=== PATIENT | female | born 1945 | race Caucasian/White ===

== ENCOUNTER 2016-11-27 14:27 | Day surgery (SDC) | payer MEDICARE ==
[~2016-11-27] VITALS: Ht 160 cm; Wt 82.1 kg
[~2016-11-27 14:27] MED LIST: AMLO10TA2 PO; ASPI-917 PO; BUSP10TA PO; CITA-49 PO; CLOP75TA33 PO; ISOS10TA2 PO; NITR0.4T39 PO; RANI150T12 PO
[2016-11-27] MEDS ORDERED: ASPIRIN 81 MG CHEWABLE TABLET PO ONE (14:30)
--- OUTSIDE RECORDS SUMMARY | 2016-11-27 14:31 | XMS REPORT | Continuity of Care Document ---
Author Author [facility] Organization [facility] Address Unknown Phone Unavailable Support Name Relationship Address Phone JENA APPIAH MD Caregiver [address] [place] [address] Unavailable MICAH TALBOT DO Caregiver [address] [place] [address] Unavailable STACIE ELLIS DO Caregiver [address] [place] [address] Unavailable VIOLET WILSON Next Of Kin [address] [id number] C Insurance Providers Guarantor Bianka Eason Address [address] [place] [address] CP Email DENIED/NO TO PT PORT Payer Medicare Policy Number [id number] Subscriber's Name Bianka Eason Relationship 16 Self Advance Directives Directive Response Recorded Date/Time Ordered Resuscitation Status Full Code, unverified 07/05/16 8:27am Resuscitation Documents on File N Full Code 07/04/16 6:00pm DPOA for Healthcare Only Y Sheila Shelbina 07/04/16 6:00pm Living Will No 07/04/16 6:00pm Advance Directive Consult Information Given 07/05/16 10:27am Problems Active Problems Medical Problem Onset Date Status Angina pectoris, variant Unknown Acute Anxiety disorder Unknown Chronic Atrial fibrillation, chronic Unknown Chronic Atypical chest pain Unknown Resolved Back pain Unknown Acute Bipolar disorder Unknown Chronic CAD (coronary artery disease) Unknown Chronic Chest pain Unknown Acute Coronary artery disease Unknown Acute Dyslipidemia Unknown Chronic Hypertension Unknown Chronic Hypokalemia Unknown Infected dental caries Unknown Acute Infected dental caries Unknown Acute Left leg pain Unknown Acute Leukocytosis Unknown Acute Paroxysmal atrial fibrillation Unknown Chronic Postprocedural hemorrhage of a circulatory system organ or structure following a cardiac catheterization Unknown Shortness of breath Unknown Acute Vertigo or labyrinthine disorder Unknown Acute Vertigo or labyrinthine disorder Unknown Acute Surgical Problem Onset Date Status S/P CABG (coronary artery bypass graft) Unknown Chronic Status post coronary artery stent placement Unknown Acute Past Problems Medical Problem Onset Date Typical angina Unknown Medications Current Home Medications Medication Dose Units Route Directions Days Qty Instructions Start Date Amlodipine Besylate 10 Mg Tablet 5 Mg Oral Daily 07/05/16 Aspirin (Aspirin Ec) 325 Mg Tablet.dr 325 Mg Oral Daily 07/04/16 Buspirone Hcl 10 Mg Tablet 10 Mg Oral Twice A Day 06/29/13 Citalopram Hydrobromide (Celexa) 20 Mg Tablet 20 Mg Oral Bedtime 07/17/12 Clopidogrel Bisulfate (Clopidogrel) 75 Mg Tablet 75 Mg Oral Daily 07/04/16 Isosorbide Dinitrate 10 Mg Tablet 30 Mg Oral Daily 30 Days 90 Tablet 07/05/16 Nitroglycerin 0.4 Mg Tab.subl 0.4 Mg Oral Every 5 Minutes X 3 as needed for Chest Pain 07/04/16 Ranitidine Hcl (Zantac) 150 Mg Tablet 150 Mg Oral Twice A Day Past Home Medications Medication Directions Ordered Status Amlodipine Besylate 5 Mg Tablet, 5 Mg Oral Daily 07/04/16 Discontinued Aspirin (Aspir 81) 81 Mg Tablet.dr, 81 Mg Oral Daily 07/15/13 Discontinued Aspirin 81 Mg Tablet, 81 Mg Oral Daily 03/14/09 Discontinued Buspirone Hcl (Buspar) 15 Mg Tablet, 15 Mg Oral Twice A Day 07/08/12 Discontinued Ciprofloxacin Hcl (Cipro) 500 Mg Tablet, Twice A Day 10/19/08 Discontinued Diltiazem Hcl (Diltiazem Er) 240 Mg Cap.sr.24h, Daily 10/19/08 Discontinued Flecainide Acetate 50 Mg Tablet, 50 Mg Oral Twice A Day 07/15/13 Discontinued Isosorbide Dinitrate 30 Mg Tablet, 2 Tab Oral Daily 07/05/16 Discontinued Isosorbide Mononitrate (Isosorbide Mononitrate Er) 60 Mg Tab.er.24h, 60 Mg Oral Daily 07/04/16 Discontinued Lisinopril 5 Mg Tablet, 5 Mg Oral Daily 08/28/14 Discontinued Lisinopril 2.5 Mg Tablet, 2.5 Mg Oral Daily 07/15/13 Discontinued Lorazepam (Ativan) 1 Mg Tablet, 1 Mg Oral 02/24/11 Discontinued Paxil , 12/27/09 Discontinued Potassium , 20 Meq Daily 12/27/09 Discontinued Sotalol , Daily 12/27/09 Discontinued Sotalol , 1 Tab Oral Twice A Day 03/14/09 Discontinued Sotalol Hcl (Sotalol) 80 Mg Tablet, 80 Mg Oral Daily 07/08/12 Discontinued Warfarin Sodium 5 Mg Tablet, 5 Mg Oral 169908/28/14 Discontinued Warfarin Sodium 2.5 Mg Tablet, 2.5 Mg Oral Friday08/28/14 Discontinued Warfarin Sodium (Coumadin) 2.5 Mg Tablet, 02/13/14 Discontinued Warfarin Sodium (Coumadin) 5 Mg Tablet, 5 Mg Oral Every Other Day 03/14/09 Discontinued Warfarin Sodium (Coumadin) 7.5 Mg Tablet, 7.5 Mg Oral Every Other Day Discontinued Social History Social History Problem Response Recorded Date/Time Onset Date Status Reason for Hospitalization chest pain 07/05/2016 10:46am Not Applicable Not Applicable Chewing Tobacco Status No 12/31/2013 1:22am Not Applicable Not Applicable Hx Substance Use No 07/04/2016 3:05pm Not Applicable Not Applicable Hx Alcohol Use No 07/04/2016 3:05pm Not Applicable Not Applicable Has the pt used tobacco in the last 12 months No 07/04/2016 6:09pm Not Applicable Not Applicable Tobacco Usage none 12/31/2013 2:34am Not Applicable Not Applicable Query Response Start Date Stop Date Smoking Status Unknown if ever smoked Hospital Discharge Instructions Instructions: Care Instructions: I was in the hospital because (patient own words): "CP Discharge Diet: Resume heart healthy diet Discharge Activity: Limit activity for 2 days. No lifting more than 10 pounds, no pushing or pulling for 1 week. Follow Up Appointments: Follow up with Dr. Appiah on: 07/30/16 Expect a phone call from [facility]hab to schedule an appointment for you. If you have any questions, please contact Card[facility] Rehab at: [phone]. Pending Lab / Results: No Pending Lab Patient Instructions: Do not drive, operate machinery or drink alcohol for 2 days. New prescriptions: Expected Signs/Symptoms: bruising and tenderness at site. Notify Physician If: Site is bleeding, abnormal drainage, increased pain or fever of 101.5 or more. During Business Hours:: Please call the physician's office at [phone] After Business Hours:: Please call [phone] and have the assistant plant control operator page the physician. Pain Management/Treatment: OTC pain medications as needed Pain Scale Utilized to Educate Patient: 0-10 Pain Scale Wound/Incision Care: Keep site clean and dry. No tub baths or swimming for 1 week. You may shower. Condition at time of discharge: Good Plan of Care Discharge Date 07/05/16 11:15am Instructions/Education Provided [facility] [place] Heart Cath Prescriptions See Medication Section Functional Status Query Response Date Recorded Mobility Status Ambulatory July 04, 2016 6:04pm Assistive Devices None July 04, 2016 6:04pm Activity Limitations None July 04, 2016 6:04pm Feeding Ability Independent July 04, 2016 6:04pm Toileting Ability Independent July 04, 2016 6:04pm Grooming Ability Independent July 04, 2016 6:04pm Dressing Ability Independent July 04, 2016 6:04pm Driving Ability Independent July 04, 2016 6:04pm Housework Ability Independent July 04, 2016 6:04pm Meal Preparation Ability Independent July 04, 2016 6:04pm Stair Climbing Ability Independent July 04, 2016 6:04pm Ability to complete ADL's impeded by No change July 04, 2016 6:04pm Cognitive/Perceptual Impairments None July 04, 2016 6:04pm Allergies, Adverse Reactions, Alerts Allergen Type Severity Reaction Status Last Updated Iodine and Iodide Containing Produc Allergy Unknown IVP DYE Active Sulfa (Sulfonamide Antibiotics) Adverse Reaction Unknown NAUSEA Active Immunizations Query Response on File Recorded Date/Time Hx Influenza Vaccination Y 04/201607/04/16 6:09pm Hx Pneumococcal Vaccination Y fall 201307/04/16 6:09pm Hx Tetanus, Diptheria, Pertussis No 03/29/15 12:14am Hx Influenza Vaccination Y 04/201607/04/16 6:09pm Hx Tetanus Diptheria Y 04/29/09 03/29/15 12:14am Hx Tetanus, Diptheria, Pertussis No 03/29/15 12:14am Hx Tetanus Toxoid Vaccination No 03/21/09 9:11pm Influenza Vaccine Hx 04/201607/04/16 6:08pm Vital Signs Acute Vital Signs Vital Response Date/Time Temperature (Fahrenheit) 98.1 deg F (96.8 - 99.1) 07/05/2016 8:01am Temperature (Calculated Celsius) 36.89802 degrees C (36.0 - 37.3) 07/05/2016 8:01am Temperature Source Oral 07/05/2016 8:01am Pulse Rate (adult) 84 bpm (60 - 100) 07/05/2016 10:04am Respiratory Rate 37 breaths/min (10 - 20) 07/05/2016 10:04am O2 Sat by Pulse Oximetry 98 % (90 - 100) 07/05/2016 10:04am Oxygen Delivery Method Room Air 07/05/2016 10:04am Blood Pressure 138/64 mm Hg 07/05/2016 10:04am Blood Pressure Source Automatic Cuff 07/05/2016 10:04am Height (Feet) 5 feet 07/04/2016 5:59pm Height (Inches) 3.00 inches 07/04/2016 5:59pm Weight (Kilograms) 77.700 kg 07/05/2016 8:00am Body Mass Index (BMI) 30.3 07/04/2016 5:59pm Results Laboratory Results Test Name Result Units Flags Reference Collection Date/Time Result Date/ Time Comments White Blood Count 8.5 T/MM3 4.5-11.0 07/05/2016 5:08am 07/05/2016 5: 42am Red Blood Count 4.75 M/MM3 4.00-5.20 07/05/2016 5:08am 07/05/2016 5: 42am Hemoglobin 14.2 GM/DL -07/05/2016 5:08am 07/05/2016 5:42am Hematocrit 42.8 % 36-46 07/05/2016 5:08am 07/05/2016 5:42am Mean Corpuscular Volume 90.1 UM3 80-100 07/05/2016 5:08am 07/05/2016 5: 42am Mean Corpuscular Hemoglobin 29.9 UUG 26-34 07/05/2016 5:08am 2015 5:42am Mean Corpuscular Hemoglobin Concent 33.2 GM/DL 31-37 07/05/2016 5:08am 07/05/2016 5:42am RDW Standard Deviation 39.8 FL 36.9-50.2 07/05/2016 5:08am 07/05/2016 5 :42am Platelet Count 238 T/MM3 130-400 07/05/2016 5:08am 07/05/2016 5:42am Mean Platelet Volume 10.3 UM3 9.4-12.4 07/05/2016 5:0807/05/2016 5: 42am Neutrophils (%) (Auto) 84.8 % H 33-66 07/05/2016 5:0807/05/2016 5: 42am Lymphocytes (%) (Auto) 13.2 % L 23-45 07/05/2016 5:0807/05/2016 5: 42am Monocytes (%) (Auto) 1.6 % 0-9.0 07/05/2016 5:0807/05/2016 5:42am Eosinophils (%) (Auto) 0.1 % 0-4 07/05/2016 5:0807/05/2016 5:42am Basophils (%) (Auto) 0.1 % 0-2 07/05/2016 5:0807/05/2016 5:42am Immature Granulocyte % (Auto) 0.2 % 0.0-0.5 07/05/2016 5:082015 5:42am Absolute Neutrophils (auto) 7.2 T/MM3 1.8-7.7 07/05/2016 5:082015 5:42am Absolute Lymphocytes (auto) 1.1 T/MM3 1-4.8 07/05/2016 5:082015 5:42am Absolute Monocytes (auto) 0.1 T/MM3 0-0.8 07/05/2016 5:0807/05/2016 5:42am Absolute Eosinophils (auto) 0.0 T/MM3 0-0.5 07/05/2016 5:082015 5:42am Absolute Basophils (auto) 0.0 T/MM3 0-0.2 07/05/2016 5:0807/05/2016 5:42am Absolute Immature Granulocyte (auto 0.02 T/MM3 0.00-0.03 07/05/2016 5: 0807/05/2016 5:42am Prothromb Time International Ratio 1.10 H 0.76-1.04 07/04/2016 3:11pm 07/04/2016 3:35pm THERAPUTIC RANGE=2.00-3.00 FOR ANTI-THROMBOSIS THERAPUTIC RANGE=2.50-3.50 FOR IMPLANTED VALVE D-Dimer 159 NG/ML 0-230 07/04/2016 3:11pm 07/04/2016 3:42pm <230 NG/ ML D-DU=PRESUMPTIVE NEGATIVE FOR PE OR DVT >230 NG/ML D-DU=ADDITIONAL EVAL FOR PE OR DVT RECOMMENDED Icterus Index < 2 0-7 07/05/2016 5:08am 07/05/2016 5:50am Chemistry Specimen Hemolysis < 15 0-25 07/05/2016 5:08am 07/05/2016 5 :50am 0-25: Specimen Exhibited No Hemolysis. Turbidity < 20 0-20 07/05/2016 5:08am 07/05/2016 5:50am Sodium Level 140 MEQ/L 134-144 07/05/2016 5:08am 07/05/2016 5:50am Potassium Level 3.8 MEQ/L 3.6-5 07/05/2016 5:08am 07/05/2016 5:50am Chloride Level 104 MEQ/L 98-107 07/05/2016 5:08am 07/05/2016 5:50am Carbon Dioxide Level 25 MEQ/L 22-30 07/05/2016 5:0807/05/2016 5: 50am Anion Gap 11 MEQ/L 5-15 07/05/2016 5:08am 07/05/2016 5:50am Blood Urea Nitrogen 17.0 MG/DL 7-17 07/05/2016 5:0807/05/2016 5: 50am Creatinine 0.9 MG/DL D 0.7-1.2 07/05/2016 5:08am 07/05/2016 5:57am BUN/Creatinine Ratio 19 RATIO 6-26 07/05/2016 5:0807/05/2016 5:50am Glomerular Filtration Rate Calc 61 07/05/2016 5:0807/05/2016 5: 50am Glucose Level 160 MG/DL H 65-110 07/05/2016 5:08am 07/05/2016 5:50am Calculated Osmolality 274 MOSM/KG 261-280 07/05/2016 5:0807/05/2016 5:50am Calcium Level 9.5 MG/DL 8.4-10.2 07/05/2016 5:08am 07/05/2016 5:50am Troponin I < 0.012 ng/ml 0-0.12 07/04/2016 3:11pm 07/04/2016 3:51pm Troponin values with a difference of 55% increase from orginal troponin value represent a true biological DELTA value. (%increase Calc=Orginal Troponin value, divided by subsequent Troponin value, multiplied by 100) AV-Cnp-L-Type Natriuretic Peptide 253 PG/ML H 0-175 07/04/2016 3:11pm 3:51pm Rule in cut points: <50 years old=450; 50-75 years old=900; >75 years old=1800; When utilizing ProBNP rule-in cut points, adjustment for impaired renal function is typically not required. Name: BIANKA EASON Unit #: [id number] : 1945 Sex: F Admit Date: Loc / Svc: CCU Discharge Date: DIAGNOSTIC IMAGING REPORT Report #: [id number] [facility] [place] Indication: ITS.REASON: r/o pseudoaneurysm at HC site PROCEDURE: US ARTERIAL EXTREMITY LOWER RT: Technique: Grayscale color and duplex Doppler imaging was performed of the arterial tree of both legs. Findings: RIGHT LEG (cm/sec) Common Femoral 134 Superficial Femoral Proximal 113 The profunda is patent. The common femoral vein is patent without arterial waveform or increased pulsatility. No definite right groin hematoma detected. IMPRESSION:No evidence for right groin pseudoaneurysm or AV fistula post cardiac catheterization access. . Procedures Procedure Status Date Provider(s) COMP SCREEN MAMMOGRAM ADD-ON Completed 05/22/16 BREAST TOMOSYNTHESIS BI Completed 05/22/16 269502"SCREENING MAMMOGRAPHY, PRODUCING DIRECT DIGITAL IMAGE Completed Encounters Encounter Location Arrival/Admit Date Discharge/Depart Date Attending Provider Departed [facility] Day [facility] 07/04/16 4:25pm 07/05/16 11 :15am JENA APPIAH MD Registered [facility] 06/28/16 2:00pm GREYSON OROURKE MD Registered [facility] 05/22/16 9:54am JAMIR PACK
--- OUTSIDE RECORDS SUMMARY | 2016-11-27 14:31 | XMS REPORT | Continuity of Care Document ---
Author Author Jorge [facility] LIVE Organization [facility] LIVE Address Unknown Phone Unavailable Support Name Relationship Address Phone STACIE ELLIS DO Caregiver [facility] [address] [facility] [address] [place] [phone] SHI BHAKTA MD Caregiver [address] [place] [address] [place] [phone] RALPH INMAN Next Of Kin [address] [place] [address] Insurance Providers Payer Name Policy Number Subscriber Name Relationship Medicare [id number] Bianka Eason 16 Self Problems Medical Problems Problem Onset Date Status Chest pain Unknown Active atrial fibrillation Unknown Active 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 Infected dental caries Unknown Active Infected dental caries Unknown Active Medications Medication Dose Route Sig Days/Qty Instructions Order Date Discontinued Date Status Diltiazem Hcl DAILY 10/19/08 03/14/09 Discontinued Ciprofloxacin Hcl TWICE A DAY 10/19/08 03/14/09 Discontinued Warfarin Sodium 5 Mg PO EVERY OTHER DAY 03/14/09 12/21/09 Discontinued Warfarin Sodium 7.5 Mg PO EVERY OTHER DAY 03/14/09 12/21/09 Discontinued Aspirin 81 Mg PO DAILY 03/14/09 12/21/09 Discontinued [Sotalol] 1 Tab PO TWICE A DAY 03/14/09 12/21/09 Discontinued [Sotalol] DAILY 12/27/09 02/24/11 Discontinued [Paxil] 12/27/09 02/24/11 Discontinued [Potassium] 20 Meq DAILY 12/27/09 02/24/11 Discontinued Lorazepam 1 Mg PO 02/24/11 08/04/12 Discontinued Buspirone Hcl 15 Mg PO TWICE A DAY 07/08/12 07/17/12 Discontinued Sotalol Hcl 80 Mg PO DAILY 07/08/12 07/15/13 Discontinued Citalopram Hydrobromide DAILY 07/17/12 Active Buspirone Hcl 10 Mg PO TWICE DAILY ON EMPTY STOMACH 06/29/13 Active Aspirin 81 Mg PO DAILY 07/15/13 Active Atorvastatin Calcium 40 Mg PO BEDTIME 07/15/13 Active Lisinopril 2.5 Mg PO DAILY 07/15/13 Active Flecainide Acetate 50 Mg PO THREE TIMES A DAY 07/15/13 Active [Coumadin] 5 Mg PO 12/31/13 Active Meclizine Hcl 25 Mg PO THREE TIMES A DAY For VERTIGO 20 Qty 12/31/13 Active Amoxicillin 875 Mg PO TWICE A DAY 20 Qty 02/13/14 Active Warfarin Sodium 02/13/14 Active Social History Social History Problem Response Recorded Date/Time Smoking Status Unknown if ever smoked 12/31/2013 1:22am Chewing Tobacco Status No 12/31/2013 1:22am Hx Substance Use No 02/13/2014 8:03pm Hx Alcohol Use No 02/13/2014 8:03pm Has the pt used tobacco in the last 12 months No 06/29/2013 9:21am Query Response Start Date Stop Date Smoking Status Never smoker Hospital Discharge Instructions No hospital discharge instructions. Plan of Care No plan of care. Functional Status Query Response Date Recorded Physical Hygiene Self February 13, 2014 8:03pm Disabilities None February 13, 2014 8:03pm Devices Used None February 13, 2014 8:03pm Dressing Self February 13, 2014 8:03pm Ambulation Self February 13, 2014 8:03pm Diet Self February 13, 2014 8:03pm Mental Status Alert Oriented February 13, 2014 8:03pm Disabilities None February 13, 2014 8:03pm Devices Used None February 13, 2014 8:03pm Physical Hygiene Self February 13, 2014 8:03pm Dressing Self February 13, 2014 8:03pm Ambulation Self February 13, 2014 8:03pm Diet Self February 13, 2014 8:03pm Allergies, Adverse Reactions, Alerts Allergen Type Severity Reaction Status Last Updated Iodine; Iodine Containing Allergy Unknown IVP DYE Active 02/13/14 Sulfa (Sulfonamide Antibiotics) Adverse Reaction Unknown NAUSEA Active Immunizations Name Given Type Hx Influenza Vaccination N pt won't take vaccine Historical Hx Pneumococcal Vaccination N pt won't take vaccine Historical Hx Tetanus, Diptheria, Pertussis No Historical Hx Influenza Vaccination N pt won't take vaccine Historical Hx Tetanus Diptheria Y 04/29/09 Historical Hx Tetanus, Diptheria, Pertussis No Historical Hx Tetanus Toxoid Vaccination No Historical Vital Signs Acute Vital Signs Vital Response Date/Time Temperature (Fahrenheit) 97.6 deg F (96.8 - 99.1) Temperature (Calculated Celsius) 36.36403 degrees C (36.0 - 37.3) Pulse Rate (adult) 58 bpm (60 - 100) Respiratory Rate 20 breaths/min (10 - 20) O2 Sat by Pulse Oximetry 96 % (90 - 100) Blood Pressure 164/70 mm Hg Height 5 ft 3 in Weight 180 lb Body Mass Index 31.0 kg/m^2 Results Test Source Date Result Interp. Ref. Range Comments Activated Partial Thromboplast Time December 31, 2013 1:40am 42.1 SEC H 24- 36 Alanine Aminotransferase (ALT/SGPT) December 31, 2013 1:40am 25 U/L N 9-52 Albumin December 31, 2013 1:40am 3.7 G/DL N 3.5-5.0 Albumin/Globulin Ratio December 31, 2013 1:40am 1.3 RATIO N 1.1-2.2 Alkaline Phosphatase December 31, 2013 1:40am 142 U/L H 38-126 Anion Gap December 31, 2013 1:40am 9 MEQ/L N 5-15 Aspartate Amino Transf (AST/SGOT) December 31, 2013 1:40am 29 U/L N 14-36 B-Type Natriuretic Peptide February 24, 2011 9:00pm < 15 PG/ML L 15-100 BUN/Creatinine Ratio December 31, 2013 1:40am 20 RATIO N 6-26 Band Neutrophils # March 14, 2009 10:20am 0.0 T/MM3 - Band Neutrophils % March 14, 2009 10:20am 0.0 % DN 0-6 Basophils # (Auto) December 31, 2013 1:40am 0.1 T/MM3 N 0-0.2 Basophils # (Manual) March 14, 2009 10:20am 0.0 T/MM3 N 0-0.2 Basophils % (Manual) March 14, 2009 10:20am 0.0 % N 0-2 Basophils (%) (Auto) December 31, 2013 1:40am 0.8 % N 0-2 Blood Urea Nitrogen December 31, 2013 1:40am 16.0 MG/DL N 7-17 Calcium Level December 31, 2013 1:40am 9.5 MG/DL N 8.4-10.2 Calculated Osmolality December 31, 2013 1:40am 270 MOSM/KG N 261-280 Carbon Dioxide Level December 31, 2013 1:40am 26 MEQ/L N 22-30 Chloride Level December 31, 2013 1:40am 105 MEQ/L N 98-107 Cholesterol Level June 29, 2013 9:20am 197 MG/DL N 132-199 COMMENT FASTING PANEL-ADD TO BLOOD IN LAB Cholesterol/HDL Ratio June 29, 2013 9:20am 3.6 RATIO N 0-4.0 COMMENT FASTING PANEL-ADD TO BLOOD IN LAB Conjugated Bilirubin July 06, 2012 9:15am 0.00 MG/DL N 0.00-0.30 Creatine Kinase MB June 29, 2013 9:20am 0.9 NG/ML N 0-3.4 Creatinine December 31, 2013 1:40am 0.8 MG/DL N 0.7-1.2 D-Dimer February 24, 2011 9:00pm < 150 NG/ML 0-230 <224 NG/ML= PRESUMPTIVE NEGATIVE FOR PE OR DVT>224 NG/ML=ADDITIONAL EVALUATION FOR PE OR DVT RECOMMENDED Differential Total Cells Counted October 19, 2008 3:00pm 100 % - Digoxin Level October 21, 2008 4:47am 0.7 NG/ML L 0.8-2.0 Eosinophils # (Auto) December 31, 2013 1:40am 0.2 T/MM3 N 0-0.5 Eosinophils # (Manual) March 14, 2009 10:20am 0.0 T/MM3 N 0-0.5 Eosinophils % (Manual) March 14, 2009 10:20am 0.0 % N 0-4 Eosinophils (%) (Auto) December 31, 2013 1:40am 3.1 % N 0-4 Erythrocyte Sedimentation Rate July 06, 2012 9:15am 68 MM/HR H 0-20 Globulin December 31, 2013 1:40am 2.8 G/DL N 2.4-3.6 Glucose Level December 31, 2013 1:40am 101 MG/DL N 65-110 Hematocrit December 31, 2013 1:40am 40.2 % N 36-46 Hemoglobin December 31, 2013 1:40am 12.9 GM/DL N 12-16 LDL Cholesterol, Calculated June 29, 2013 9:20am 121.0 N 66-159 COMMENT FASTING PANEL-ADD TO BLOOD IN LAB Lipase March 14, 2009 10:20am 93 U/L N 23-300 Lymphocytes # (Auto) December 31, 2013 1:40am 3.2 T/MM3 N 1-4.8 Lymphocytes # (Manual) March 14, 2009 10:20am 0.5 T/MM3 L 1-4.8 Lymphocytes % (Manual) March 14, 2009 10:20am 5.0 % L 23-45 Lymphocytes (%) (Auto) December 31, 2013 1:40am 41.3 % N 23-45 Magnesium Level July 06, 2012 9:15am 2.2 MG/DL N 1.6-2.3 COMMENT charito Mean Corpuscular Hemoglobin December 31, 2013 1:40am 28.2 UUG N 26-34 Mean Corpuscular Hemoglobin Concent December 31, 2013 1:40am 32.1 GM/DL N 31 -37 Mean Corpuscular Volume December 31, 2013 1:40am 87.8 UM3 N 80-100 Mean Platelet Volume December 31, 2013 1:40am 10.4 UM3 N 9.4-12.4 Monocytes # (Auto) December 31, 2013 1:40am 1.0 T/MM3 H 0-0.8 Monocytes # (Manual) March 14, 2009 10:20am 0.3 T/MM3 N 0-0.8 Monocytes % (Manual) March 14, 2009 10:20am 3.0 % N 0-9.0 Monocytes (%) (Auto) December 31, 2013 1:40am 12.6 % H 0-9.0 Neutrophils # (Auto) December 31, 2013 1:40am 3.2 T/MM3 N 1.8-7.7 Neutrophils # (Manual) March 14, 2009 10:20am 8.8 T/MM3 H 1.8-7.7 Neutrophils % (Manual) March 14, 2009 10:20am 92.0 % H 33-66 Neutrophils (%) (Auto) December 31, 2013 1:40am 41.9 % N 33-66 Platelet Count December 31, 2013 1:40am 240 T/MM3 N 130-400 Potassium Level December 31, 2013 1:40am 3.6 MEQ/L N 3.6-5 Prothromb Time International Ratio December 31, 2013 1:40am 2.10 H 0.81- 1.09 THERAPUTIC RANGE=2.00-3.00 FOR ANTI-THROMBOSIS THERAPUTIC RANGE=2.50- 3.50 FOR IMPLANTED VALVE RDW Standard Deviation December 31, 2013 1:40am 51.5 FL H 36.9-50.2 Reactive Lymphocytes October 19, 2008 3:00pm 5.0 % H 0-0 Red Blood Count December 31, 2013 1:40am 4.58 M/MM3 N 4.00-5.20 Sodium Level December 31, 2013 1:40am 140 MEQ/L N 134-144 Tests Not Done October 23, 2008 7:08am Not done - Has specimen been collected/obtained? Y Thyroid Stimulating Hormone (TSH) October 19, 2008 6:23pm 0.48 MIU/ML N 0.47-4.68 Total Bilirubin December 31, 2013 1:40am 0.70 MG/DL N 0.20-1.30 Total Creatine Kinase June 29, 2013 9:20am 93 U/L N 30-135 Total Protein December 31, 2013 1:40am 6.5 G/DL N 6.3-8.2 Triglycerides Level June 29, 2013 9:20am 110 MG/DL N 35-135 COMMENT FASTING PANEL-ADD TO BLOOD IN LAB Troponin I December 31, 2013 1:40am < 0.012 ng/ml 0-0.12 Unconjugated Bilirubin July 06, 2012 9:15am 0.30 MG/DL N 0.00-1.10 Urine Bacteria December 31, 2013 2:10am None seen - Has specimen been collected/obtained? Y Urine Bilirubin December 31, 2013 2:10am Negative - Has specimen been collected/obtained? Y Urine Blood December 31, 2013 2:10am 2+ H - Has specimen been collected/ obtained? Y Urine Collection Type December 31, 2013 2:10am Voided-not cc-midstr - Has specimen been collected/obtained? Y Urine Color December 31, 2013 2:10am Yellow - Has specimen been collected /obtained? Y Urine Culture Indicated July 15, 2013 12:20pm Cult not indicated - Has specimen been collected/obtained? Y Urine Drug Screen (T) July 07, 2013 1:03pm Sent out - Urine Glucose (UA) December 31, 2013 2:10am Negative - Has specimen been collected/obtained? Y Urine Ketones December 31, 2013 2:10am Negative - Has specimen been collected/obtained? Y Urine Leukocyte Esterase December 31, 2013 2:10am Negative - Has specimen been collected/obtained? Y Urine Mucus July 07, 2013 3:45pm Present - CALL RESULTS TO . Urine Nitrite December 31, 2013 2:10am Negative - Has specimen been collected/obtained? Y Urine Protein December 31, 2013 2:10am Negative - Has specimen been collected/obtained? Y Urine RBC December 31, 2013 2:10am 3-5 /HPF H - Has specimen been collected /obtained? Y Urine Renal Epithelial Cells December 21, 2009 1:38am 3-5 /HPF - Has specimen been collected/obtained? Y Urine Specific [place] December 31, 2013 2:10am <=1.005 L - Has specimen been collected/obtained? Y Urine Squamous Epithelial Cells July 15, 2013 12:20pm None seen - Has specimen been collected/obtained? Y Urine Turbidity December 31, 2013 2:10am Clear - Has specimen been collected/obtained? Y Urine Urobilinogen December 31, 2013 2:10am 0.2 EU/DL - Has specimen been collected/obtained? Y Urine WBC December 31, 2013 2:10am 0-1 /HPF - Has specimen been collected /obtained? Y Urine pH December 31, 2013 2:10am 6.5 - Has specimen been collected/ obtained? Y VLDL Cholesterol June 29, 2013 9:20am 22.0 MG/DL N 0-28 COMMENT FASTING PANEL-ADD TO BLOOD IN LAB White Blood Count December 31, 2013 1:40am 7.7 T/MM3 N 4.5-11.0 Chemistry Specimen Hemolysis December 31, 2013 1:40am < 15 0-25 0-25: No Hemolysis.26-70: Slight Hemolysis - can falsely elevate K and Urine Protein. 71-285: Moderate Hemolysis - can falsely elevate K, Troponin I, CA 19-9, PTH, CSF GLucose, and Urine Protein, and can falsely decrease Phenytoin. 286-999: Gross Hemolysis - can falsely elevate K, Troponin I, CA 19-9, PTH, CSF Glucose, and Urine Protine, and can falsely decrease Phenytoin. Recommend specimen recollection. Lab Scanned Report July 09, 2013 3:14pm REFERENCE LAB [id number] - EKG March 14, 2009 10:25am Complete - HDL Cholesterol Direct June 29, 2013 9:20am 54 MG/DL N 40-60 COMMENT FASTING PANEL-ADD TO BLOOD IN LAB Atypical/Reactive Lymphocytes October 19, 2008 3:00pm 0.9 T/MM3 H 0-0 Turbidity December 31, 2013 1:40am < 20 0-20 Glomerular Filtration Rate Calc December 31, 2013 1:40am 71 - Immature Granulocyte # (Auto) December 31, 2013 1:40am 0.02 T/MM3 N 0.00- 0.03 Immature Granulocyte % (Auto) December 31, 2013 1:40am 0.3 % N 0.0-0.5 Icterus Index December 31, 2013 1:40am < 2 0-7 TG-Jns-X-Type Natriuretic Peptide December 31, 2013 1:40am 1120 PG/ML H 0- 175 Rule in cut points: <50 years old=450; 50-75 years old=900; >75 years old=1800; When utilizing ProBNP rule-in cut points, adjustment for impaired renal function is typically not required. Urine Culture Urine, Straight Cath July 07, 2013 5:19pm Gram Stain Arm-Left Lower April 29, 2009 4:38pm Name: BIANKA EASON Unit #: [id number] : [id number] Sex: F Loc / Svc: ED DOS: 12/31/13 Signed Report #: [id number] DIAGNOSTIC IMAGING REPORT TYPE OF EXAM: CHEST 1 VIEW Dictated By: VIVIANA HOLM MD INDICATION: ITS.REASON: chest pain CHEST 1 VIEW: Comparison: September 20, 2013 Findings: The lungs are stable in appearance without new focal airspace consolidation. There is no pleural effusion or pneumothorax. The heart size, pulmonary vascularity and mediastinal contours are unchanged. IMPRESSION: Stable appearance of the chest without acute cardiopulmonary disease. . Procedures Procedure Status Date Provider(s) PLACE NEEDLE IN VEIN completed 12/31/13 BLESSING FREY DO Encounters Encounter Location Date/Time Departed Emergency Room [facility] 02/13/14 7:12pm Departed Emergency Room [facility] 12/31/13 1:22am Discharged Recurring [facility] 12/15/13 2:30pm Recent Diagnosis
--- OUTSIDE RECORDS SUMMARY | 2016-11-27 14:31 | XMS REPORT | Continuity of Care Document ---
Author Author Jorge [facility] LIVE Organization [facility] LIVE Address Unknown Phone Unavailable Support Name Relationship Address Phone STACIE ELLIS DO Caregiver [facility] MEDICINE [address] [facility] [address] [place] [phone] SHI BHAKTA MD Caregiver [address] [place] [address] [place] [phone] RALPH INMAN Next Of Kin [address] [place] [address] Insurance Providers Payer Name Policy Number Subscriber Name Relationship Medicare [id number] Bianka Eason 16 Self Problems Medical Problems [...] F (96.8 - 99.1) Temperature (Calculated Celsius) 36.22495 degrees C (36.0 - 37.3) Pulse Rate [...] 2013 3:45pm Present - CALL RESULTS TO [phone]. Urine Nitrite December 31, 2013 2:10am Negative - Has specimen been collected/obtained? Y Urine Protein December 31, 2013 2:10am Negative - Has specimen been collected/obtained? Y Urine RBC December 31, 2013 2:10am 3-5 /HPF H - Has specimen been collected /obtained? Y Urine Renal Epithelial Cells December 21, 2009 1:38am 3-5 /HPF - Has specimen been collected/obtained? Y Urine Specific [place] December 31, 2013 2:10am <=1.005 L - [...] Report July 09, 2013 3:14pm REFERENCE LAB [id number] - EKG March 14, 2009 10:25am Complete [...] December 31, 2013 1:40am < 2 0-7 WB-Rlm-B-Type Natriuretic Peptide December 31, 2013 1:40am 1120 PG/ML H 0- 175 Rule in cut points: <50 years old=450; 50-75 years old=900; >75 years old=1800; When utilizing ProBNP rule-in cut points, adjustment for impaired renal function is typically not required. Urine Culture Urine, Straight Cath July 07, 2013 5:19pm Gram Stain Arm-Left Lower April 29, 2009 4:38pm Name: BIANKA EASON Unit #: [id number] : 1945 Sex: F Loc / Svc: ED DOS: 12/31/13 Signed Report #: [id number] DIAGNOSTIC IMAGING REPORT TYPE OF EXAM: CHEST [...] Encounters Encounter Location Date/Time Departed Emergency Room [facility] 02/13/14 7:12pm Departed Emergency Room [facility] 12/31/13 1:22am Registered Recurring [facility] 12/15/13 2:30pm Recent Diagnosis
--- OUTSIDE RECORDS SUMMARY | 2016-11-27 14:31 | XMS REPORT | Continuity of Care Document ---
Author Author [facility] Organization [facility] Address Unknown Phone Unavailable Support Name Relationship Address Phone TYRONE APPIAH MD Caregiver [facility] [address] [place] [address] [address] [place] [address] STACIE BENOIT MD Caregiver [facility] [address] [place] [address] Unavailable STACIE ELLIS DO Caregiver [facility] [address] [place] [address] [address] [place], [place] [phone] GREYSON JOHN Next Of Kin [id number] [facility] [address] [place], [place] [id number] Insurance Providers Payer Name Policy Number Subscriber Name Relationship Medicare [id number] Bianka Eason 16 Self Advance Directives Directive Response Recorded Date/Time Advanced Directives Type None 08/28/14 11:26am Ordered Resuscitation Status Full Code 08/28/14 10:53am Chief Complaint and Reason for Visit Chief Complaint CHEST PAIN Reason for Visit Angina pectoris, variant Atypical chest pain CAD (coronary artery disease) Status post coronary artery stent placement S/P CABG (coronary artery bypass graft) Hypertension Paroxysmal atrial fibrillation Dyslipidemia Shortness of breath Leukocytosis Problems Medical Problems Problem Onset Date Status Chest pain Unknown Active atrial fibrillation Unknown Active 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 Infected dental caries Unknown Active Infected dental caries Unknown Active Angina pectoris, variant Unknown Active Atypical chest pain Unknown Resolved CAD (coronary artery disease) Unknown Active Hypertension Unknown Active Paroxysmal atrial fibrillation Unknown Active Dyslipidemia Unknown Active Shortness of breath Unknown Active Leukocytosis Unknown Active Surgical Problems Problem Onset Date Recorded Date/Time Status Status post coronary artery stent placement Unknown 08/30/2014 11:40am Active S/P CABG (coronary artery bypass graft) Unknown 08/30/2014 11:40am Active Medications Medication Dose Route Sig Days/Qty [...] Active Aspirin 81 Mg PO DAILY 07/15/13 08/31/14 Discontinued Atorvastatin Calcium 40 Mg PO BEDTIME 07/15/13 Active Lisinopril 2.5 Mg PO DAILY 07/15/13 08/28/14 Discontinued Flecainide Acetate 50 Mg PO TWICE A DAY 07/15/13 08/31/14 Discontinued Warfarin Sodium 02/13/14 08/28/14 Discontinued Lisinopril 5 Mg PO DAILY 08/28/14 08/31/14 Discontinued Warfarin Sodium 5 Mg PO 1700 Take 1 tablet, by mouth, 1 time a day (at 5 pm). 08/28/14 08/31/14 Discontinued Warfarin Sodium 2.5 Mg PO Friday08/28/14 08/31/14 Discontinued Metoprolol Tartrate 25 Mg PO TWICE DAILY WITH MEALS Take 1 tab, by mouth , two time a day with meals. 08/28/14 Active Aspirin 325 Mg PO DAILY 30 Days 08/31/14 Active Clopidogrel Bisulfate 75 Mg PO DAILY 30 Qty 08/31/14 Active Losartan Potassium 50 Mg PO DAILY@2100 30 Qty 08/31/14 Active Ranitidine HCl 150 Mg PO DAILY 30 Qty 08/31/14 Active Diphenhydramine HCl 25 Mg PO EVERY 4-6 HOURS PRN ITCHING 14 Days Active Social History Social History Problem Response Recorded Date/Time Chewing Tobacco Status No 12/31/2013 1:22am Hx Substance Use No 08/28/2014 10:16am Hx Alcohol Use No 08/28/2014 10:16am Has the pt used tobacco in the last 12 months No 08/28/2014 11:40am Tobacco Usage none 12/31/2013 2:34am Query Response Start Date Stop Date Smoking Status Unknown if ever smoked Hospital Discharge Instructions Instructions: Care Instructions: Reason for Hospitalization: chest pain, CAD I was in the hospital because (patient own words): states,"I was having pain in my right arm and chest." Discharge Diet: Heart Healthy Diet Discharge Activity: Do not drive or operate machinery for 24 hours following heart cath. Do not lift greater than 10 pounds for 7 days. Follow Up Appointments: Call for an appointment with Dr. Appiah in the next one to 2 weeks. We will refer you to an maintenance instructor for further evaluation and possible ablation of atrial fibrillation. Our office will call to schedule this. APPOINMENT MADE FOR SEPTEMBER 28 2014 AT 9:30 AM Patient Instructions: Do not bathe for 5 days. It is OK to shower. If you have a closure device (Angioseal, Mynx), see your booklet for further instructions. Wound/Incision Care: You may wash the incision gently with non-lotion soap and water. Do not apply powder or lotion to the incision site. Notify Physician If: You have increased discomfort at incision site. Redness Hot or hardened area Temperature over 101 degress Fahrenheit Increased or foul smelling drainage Chills IF BLEEDING, PAIN OR PROGRESSIVE SWELLING OCCURS TO THE SITE, APPLY PRESSURE AND CALL 911. Condition at time of discharge: Fair - You have pain and/or swelling in your feet, calves, or legs. - You have difficulty breathing, abnormal cough, or chest pain. Condition at time of discharge: Good Plan of Care Discharge Date 08/31/14 4:00pm Disposition 01 DISCHARGED HOME, SELF-CARE Instructions/Education Provided [facility] [place] for Atypical Chest Pain Prescriptions See Medications Section Functional Status Query Response Date Recorded Physical Hygiene Self August 31, 2014 1:05pm Disabilities None August 31, 2014 1:05pm Devices Used None August 31, 2014 1:05pm Dressing Self August 31, 2014 1:05pm Ambulation Self August 31, 2014 1:05pm Diet Self August 31, 2014 1:05pm Mental Status Alert August 31, 2014 1:05pm Disabilities None August 31, 2014 1:05pm Devices Used None August 31, 2014 1:05pm Physical Hygiene Self August 31, 2014 1:05pm Dressing Self August 31, 2014 1:05pm Ambulation Self August 31, 2014 1:05pm Diet Self August 31, 2014 1:05pm Allergies, Adverse Reactions, Alerts Allergen Type Severity Reaction Status Last Updated Iodine and Iodide Containing Produc Allergy Unknown IVP DYE Active Sulfa (Sulfonamide Antibiotics) Adverse Reaction Unknown NAUSEA Active 03/04 Immunizations Name Given Type Hx Influenza Vaccination Y Fall 2013 Historical Hx Pneumococcal Vaccination N Fall 2013 Historical Hx Tetanus, Diptheria, Pertussis No Historical Hx Influenza Vaccination Y Fall 2013 Historical Hx Tetanus Diptheria Y 04/29/09 Historical Hx Tetanus, Diptheria, Pertussis No Historical Hx Tetanus Toxoid Vaccination No Historical Vital Signs Acute Vital Signs Vital Response Date/Time Temperature (Fahrenheit) 97.1 deg F (96.8 - 99.1) Temperature (Calculated Celsius) 36.47576 degrees C (36.0 - 37.3) Pulse Rate (adult) 56 bpm (60 - 100) Respiratory Rate 12 breaths/min (10 - 20) O2 Sat by Pulse Oximetry 96 % (90 - 100) Oxygen Delivery Method Room Air Blood Pressure 165/81 mm Hg Blood Pressure Source Automatic Cuff Height 0 ft 3 in Weight 188 lb Body Mass Index 74176.0 kg/m^2 Results Test Source Date Result Interp. Ref. Range Comments Activated Partial Thromboplast Time August 28, 2014 10:02am 40.2 SEC H 24-36 Ordering r/o VTE Yes Alanine Aminotransferase (ALT/SGPT) August 28, 2014 10:02am 44 U/L N 9 -52 Albumin August 28, 2014 10:02am 4.1 G/DL N 3.5-5.0 Albumin/Globulin Ratio August 28, 2014 10:02am 1.2 RATIO N 1.1-2.2 Alkaline Phosphatase August 28, 2014 10:02am 217 U/L H 38-126 Anion Gap August 31, 2014 4:23am 9 MEQ/L N 5-15 Aspartate Amino Transf (AST/SGOT) August 28, 2014 10:02am 49 U/L H 14- 36 Atypical/Reactive Lymphocytes October 19, 2008 3:00pm 0.9 T/MM3 H 0-0 B-Type Natriuretic Peptide February 24, 2011 9:00pm < 15 PG/ML L 15-100 BUN/Creatinine Ratio August 31, 2014 4:23am 20 RATIO N 6-26 Band Neutrophils # August 31, 2014 4:23am 0.2 T/MM3 - Band Neutrophils % August 31, 2014 4:23am 1.0 % N 0-6 Basophils # (Auto) August 29, 2014 4:25am 0.1 T/MM3 N 0-0.2 Basophils # (Manual) March 14, 2009 10:20am 0.0 T/MM3 N 0-0.2 Basophils % (Manual) March 14, 2009 10:20am 0.0 % N 0-2 Basophils (%) (Auto) August 29, 2014 4:25am 0.6 % N 0-2 Blood Urea Nitrogen August 31, 2014 4:23am 18.0 MG/DL H 7-17 Calcium Level August 31, 2014 4:23am 9.6 MG/DL N 8.4-10.2 Calculated Osmolality August 31, 2014 4:23am 272 MOSM/KG N 261-280 Carbon Dioxide Level August 31, 2014 4:23am 26 MEQ/L N 22-30 Chemistry Specimen Hemolysis August 31, 2014 4:23am < 15 0-25 0-25 : No Hemolysis.26-70: Slight Hemolysis - can falsely elevate K and Urine Protein. 71-285: Moderate Hemolysis - can falsely elevate K, Troponin I, CA 19-9, PTH, CSF GLucose, and Urine Protein, and can falsely decrease Phenytoin. 286-999: Gross Hemolysis - can falsely elevate K, Troponin I, CA 19-9, PTH, CSF Glucose, and Urine Protine, and can falsely decrease Phenytoin. Recommend specimen recollection. Chloride Level August 31, 2014 4:23am 103 MEQ/L N 98-107 Cholesterol Level August 30, 2014 4:29am 145 MG/DL N 132-199 Cholesterol/HDL Ratio August 30, 2014 4:29am 2.5 RATIO N 0-4.0 Conjugated Bilirubin July 06, 2012 9:15am 0.00 MG/DL N 0.00-0.30 Creatine Kinase MB June 29, 2013 9:20am 0.9 NG/ML N 0-3.4 Creatinine August 31, 2014 4:23am 0.9 MG/DL N 0.7-1.2 D-Dimer August 28, 2014 10:02am < 150 NG/ML 0-230 <230 NG/ML D-DU= PRESUMPTIVE NEGATIVE FOR PE OR DVT>230 NG/ML D-DU=ADDITIONAL EVAL FOR PE OR DVT RECOMMENDED Differential Total Cells Counted October 19, 2008 3:00pm 100 % - Digoxin Level October 21, 2008 4:47am 0.7 NG/ML L 0.8-2.0 EKG March 14, 2009 10:25am Complete - Eosinophils # (Auto) August 29, 2014 4:25am 0.2 T/MM3 N 0-0.5 Eosinophils # (Manual) March 14, 2009 10:20am 0.0 T/MM3 N 0-0.5 Eosinophils % (Manual) March 14, 2009 10:20am 0.0 % N 0-4 Eosinophils (%) (Auto) August 29, 2014 4:25am 2.4 % N 0-4 Erythrocyte Sedimentation Rate July 06, 2012 9:15am 68 MM/HR H 0-20 Globulin August 28, 2014 10:02am 3.3 G/DL N 2.4-3.6 Glomerular Filtration Rate Calc August 31, 2014 4:23am 62 - Glucose Level August 31, 2014 4:23am 169 MG/DL H 65-110 HDL Cholesterol Direct August 30, 2014 4:29am 59 MG/DL N 40-60 Hematocrit August 31, 2014 4:23am 42.4 % N 36-46 Hemoglobin August 31, 2014 4:23am 13.7 GM/DL N 12-16 Icterus Index August 31, 2014 4:23am < 2 0-7 Immature Granulocyte # (Auto) August 29, 2014 4:25am 0.02 T/MM3 N 0.00 -0.03 Immature Granulocyte % (Auto) August 29, 2014 4:25am 0.3 % N 0.0-0.5 LDL Cholesterol, Calculated August 30, 2014 4:29am 75.8 N 66-159 Lab Scanned Report July 09, 2013 3:14pm [facility]FER[facility] [id number] - Lipase August 28, 2014 10:02am 152 U/L N 23-300 Lymphocytes # (Auto) August 29, 2014 4:25am 2.4 T/MM3 N 1-4.8 Lymphocytes # (Manual) August 31, 2014 4:23am 1.8 T/MM3 N 1-4.8 Lymphocytes % (Manual) August 31, 2014 4:23am 12.0 % L 23-45 Lymphocytes (%) (Auto) August 29, 2014 4:25am 30.7 % N 23-45 Magnesium Level July 06, 2012 9:15am 2.2 MG/DL N 1.6-2.3 COMMENT charito Mean Corpuscular Hemoglobin August 31, 2014 4:23am 29.1 UUG N 26-34 Mean Corpuscular Hemoglobin Concent August 31, 2014 4:23am 32.3 GM/DL N 31-37 Mean Corpuscular Volume August 31, 2014 4:23am 90.2 UM3 N 80-100 Mean Platelet Volume August 31, 2014 4:23am 10.3 UM3 N 9.4-12.4 Monocytes # (Auto) August 29, 2014 4:25am 1.0 T/MM3 H 0-0.8 Monocytes # (Manual) August 31, 2014 4:23am 0.2 T/MM3 N 0-0.8 Monocytes % (Manual) August 31, 2014 4:23am 1.0 % N 0-9.0 Monocytes (%) (Auto) August 29, 2014 4:25am 13.1 % H 0-9.0 BA-Mib-E-Type Natriuretic Peptide August 30, 2014 4:29am 791 PG/ML H 0 -175 Rule in cut points: <50 years old=450; 50-75 years old=900; >75 years old=1800; When utilizing ProBNP rule-in cut points, adjustment for impaired renal function is typically not required. Neutrophils # (Auto) August 29, 2014 4:25am 4.1 T/MM3 N 1.8-7.7 Neutrophils # (Manual) August 31, 2014 4:23am 13.0 T/MM3 H 1.8-7.7 Neutrophils % (Manual) August 31, 2014 4:23am 86.0 % H 33-66 Neutrophils (%) (Auto) August 29, 2014 4:25am 52.9 % N 33-66 Platelet Count August 31, 2014 4:23am 264 T/MM3 N 130-400 Potassium Level August 31, 2014 4:23am 4.5 MEQ/L N 3.6-5 Prothromb Time International Ratio August 29, 2014 4:25am 1.60 H 0.81- 1.09 THERAPUTIC RANGE=2.00-3.00 FOR ANTI-THROMBOSIS THERAPUTIC RANGE=2.50- 3.50 FOR IMPLANTED VALVE RDW Standard Deviation August 31, 2014 4:23am 43.9 FL N 36.9-50.2 Reactive Lymphocytes October 19, 2008 3:00pm 5.0 % H 0-0 Red Blood Count August 31, 2014 4:23am 4.70 M/MM3 N 4.00-5.20 Sodium Level August 31, 2014 4:23am 138 MEQ/L N 134-144 Tests Not Done October 23, 2008 7:08am Not done - Has specimen been collected/obtained? Y Thyroid Stimulating Hormone (TSH) October 19, 2008 6:23pm 0.48 MIU/ML N 0.47-4.68 Total Bilirubin August 28, 2014 10:02am 1.20 MG/DL N 0.20-1.30 Total Creatine Kinase June 29, 2013 9:20am 93 U/L N 30-135 Total Protein August 28, 2014 10:02am 7.4 G/DL N 6.3-8.2 Triglycerides Level August 30, 2014 4:29am 51 MG/DL N 35-135 Troponin I August 29, 2014 7:45pm < 0.012 ng/ml 0-0.12 Turbidity August 31, 2014 4:23am < 20 0-20 Unconjugated Bilirubin July 06, 2012 9:15am 0.30 MG/DL N 0.00-1.10 Urine Bacteria August 30, 2014 11:35am None seen - Has specimen been collected/obtained? Y Urine Bilirubin August 30, 2014 11:35am Negative - Has specimen been collected/obtained? Y Urine Blood August 30, 2014 11:35am 2+ H - Has specimen been collected/obtained? Y Urine Collection Type August 30, 2014 11:35am Cleancatch-midstream - Has specimen been collected/obtained? Y Urine Color August 30, 2014 11:35am Yellow - Has specimen been collected/obtained? Y Urine Culture Indicated July 15, 2013 12:20pm Cult not indicated - Has specimen been collected/obtained? Y Urine Drug Screen (T) July 07, 2013 1:03pm Sent out - Urine Glucose (UA) August 30, 2014 11:35am Negative - Has specimen been collected/obtained? Y Urine Ketones August 30, 2014 11:35am Negative - Has specimen been collected/obtained? Y Urine Leukocyte Esterase August 30, 2014 11:35am Negative - Has specimen been collected/obtained? Y Urine Mucus July 07, 2013 3:45pm Present - CALL RESULTS TO [phone]. Urine Nitrite August 30, 2014 11:35am Negative - Has specimen been collected/obtained? Y Urine Protein August 30, 2014 11:35am Negative - Has specimen been collected/obtained? Y Urine RBC August 30, 2014 11:35am 3-5 /HPF H - Has specimen been collected/obtained? Y Urine Renal Epithelial Cells December 21, 2009 1:38am 3-5 /HPF - Has specimen been collected/obtained? Y Urine Specific [place] August 30, 2014 11:35am <=1.005 L - Has specimen been collected/obtained? Y Urine Squamous Epithelial Cells August 30, 2014 11:35am 0-5 - Has specimen been collected/obtained? Y Urine Turbidity August 30, 2014 11:35am Clear - Has specimen been collected/obtained? Y Urine Urobilinogen August 30, 2014 11:35am 0.2 EU/DL - Has specimen been collected/obtained? Y Urine WBC August 30, 2014 11:35am 0-1 /HPF - Has specimen been collected/obtained? Y Urine pH August 30, 2014 11:35am 6.0 - Has specimen been collected/ obtained? Y VLDL Cholesterol August 30, 2014 4:29am 10.2 MG/DL N 0-28 White Blood Count August 31, 2014 4:23am 15.1 T/MM3 H 4.5-11.0 Urine Culture Urine, Straight Cath July 07, 2013 5:19pm Gram Stain Arm-Left Lower April 29, 2009 4:38pm Name: BIANKA EASON Unit #: [id number] : 1945 Sex: F DISCHARGE SUMMARY Admit Date: 08/30/14 Report #: [id number] NAVEEN HOWARD Shelley 08/31/14 1217: General Date Date DATE: 08/31/14 TIME: 12:12 Attending Physician Tyrone Appiah MD Admitting Physician Tyrone Appiah MD Consulting Physician Admitting Diagnosis Chest pain Abnormal stress test coronary artery disease status post coronary artery bypass graft Dyslipidemia Hypertension uncontrolled Cough secondary to lisinopril Bradycardic History of atrial fibrillation Discharge Diagnosis 1) Shortness of breath - resolved (2) Leukocytosis (3) CAD (coronary artery disease) (4) Status post coronary artery stent placement (5) Chest pain - resolved with abnormal stress test (6) S/P CABG (coronary artery bypass graft) (7) Paroxysmal atrial fibrillation (8) Hypertension - controlled (9) Dyslipidemia (10) Bradycardia (11) Cough secondary to Lisinopril Procedures Left heart catheterization with percutaneous coronary intervention to the vein graft to the circumflex was performed on 08/29/2014. LV function was within normal limits. Drug-eluting stent placed x2. Laboratory Laboratory Laboratory Tests Test 08/31/14 04:23 White Blood Count 15.1 T/MM3 Red Blood Count 4.70 M/MM3 Hemoglobin 13.7 GM/DL Hematocrit 42.4 % Mean Corpuscular Volume 90.2 UM3 Mean Corpuscular Hemoglobin 29.1 UUG Mean Corpuscular Hemoglobin 32.3 GM/DL Concent RDW Standard Deviation 43.9 FL Platelet Count 264 T/MM3 Mean Platelet Volume 10.3 UM3 Neutrophils % (Manual) 86.0 % Band Neutrophils % 1.0 % Lymphocytes % (Manual) 12.0 % Monocytes % (Manual) 1.0 % Neutrophils # (Manual) 13.0 T/MM3 Band Neutrophils # 0.2 T/MM3 Lymphocytes # (Manual) 1.8 T/MM3 Monocytes # (Manual) 0.2 T/MM3 Turbidity < 20 Sodium Level 138 MEQ/L Potassium Level 4.5 MEQ/L Chloride Level 103 MEQ/L Carbon Dioxide Level 26 MEQ/L Anion Gap 9 MEQ/L Blood Urea Nitrogen 18.0 MG/DL Creatinine 0.9 MG/DL Glomerular Filtration Rate 62 Calc BUN/Creatinine Ratio 20 RATIO Glucose Level 169 MG/DL Calculated Osmolality 272 MOSM/KG Calcium Level 9.6 MG/DL Icterus Index < 2 Chemistry Specimen Hemolysis < 15 Radiology Chest x-ray on 08/28/2014 and on remained within normal limits. History of Present Illness See history of present illness noted on H&P on arrival. Hospital Course This is a 69-year-old female patient that presented to the emergency room on the date of admission complaining of chest pain. She had an already scheduled heart catheterization on 08/29/2014. She was placed in outpatient observation with serial cardiac enzymes which remained within normal limits. The patient continued to have some discomfort in had left heart catheterization on by Dr. Appiah. This revealed up to 80% stenosis in the vein graft and circumflex. Drug evening stent x2 was placed and the patient was initiated on aspirin 325 mg daily and Plavix 75 mg daily. Has significant IV dye and allergy and therefore was preoperatively given prednisone and Solu- Medrol. Patient had been on flecainide 50 mg by mouth twice a day, but with her history of coronary artery disease and stent placement, it was determined amiodarone would be more appropriate. The patient's heart rate remained in the 50s and therefore sotalol was not recommended. Initially, the patient's he KG in the morning after amiodarone revealed a QTC that was slightly prolonged, however this is likely a running us as the ECG superior different and likely lead placement affected the QTC. A repeat EKG is recommended and this was performed on the date of discharge. QTC is stable. With the initiation of amiodarone, the patient developed an allergic reaction. She had an iodide an allergy previously, but had never had amiodarone. Most people do well with this medication, however she developed a rash to her face and some hives. She was given Solu-Medrol 125 mg IV as well as Benadryl 25 mg IV IV. She was continued on Benadryl by mouth. Initially, it was felt that she would be discharged on . However, the patient is complaining of increased shortness of air and fatigue. Her white blood cell count was greater than 12,000 and chest x-ray, UA and BMP were all essentially negative. With her EKG findings, it was determined she would be best placed in patient for another day of monitoring. On the date of discharge, she still has some mild rash that comes and goes, but otherwise feels okay. Amiodarone was discontinued and it was discussed with the patient we will discharge her without antiarrhythmic therapy. We will send her to see an maintenance instructor in the near future for possible ablation. The patient also during his hospitalization complaint of a cough since starting lisinopril. This was changed to losartan 50 mg by mouth daily. She is to remain on aspirin 325 and Plavix 75 mg daily. Her warfarin was discontinued. The aspirin 81 mg daily was also discontinued. The patient is stable for discharge on the date of discharge without complaints other than this occasional rash. She had no dyspnea or angioedema with the initiation of amiodarone. Problems: Code Status Full Code Home Meds Active Scripts Diphenhydramine HCl (Benadryl)25 Mg Wargcer55 Mg PO Q4-6H PRN (ITCHING) 14 Days Prov:NAVEEN HOWARD P.A. 08/31/14 Ranitidine HCl (Zantac)150 Mg [id number] Mg PO DAILY #30 TAB Ref 3 Prov:NAVEEN HOWARD P.A. 08/31/14 Losartan Potassium (Cozaar)50 Mg Ciosmq05 Mg PO DAILY@2100 #30 TAB Ref 3 Prov:NAVEEN HOWARD P.A. 08/31/14 Clopidogrel Bisulfate (Plavix)75 Mg Wiwzdm24 Mg PO DAILY #30 TAB Ref 3 Prov:NAVEEN HOWARD P.A. 08/31/14 Aspirin (Ecotrin)325 Mg [id number] Mg PO DAILY 30 Days Ref 11 Prov:NAVEEN HOWARD P.A. 08/31/14 Reported Medications Metoprolol Tartrate 25 Mg Uaehwz43 Mg PO BIDWM Take 1 tab, by mouth, two time a day with meals. 08/28/14 Atorvastatin Calcium 40 Mg [id number] Mg PO HS 07/15/13 Buspirone Hcl 10 Mg Xzdfol64 Mg PO BID/E 06/29/13 Citalopram (Celexa)20 Mg Tablet Daily 07/17/12 Discontinued Reported Medications Warfarin Sodium 2.5 Mg Tablet2.5 Mg PO FRIDAY Take 1 tablet, by mouth, 1 time a day (at 5 pm). 08/28/14 Warfarin Sodium 5 Mg Tablet5 Mg PO 1700 Take 1 tablet, by mouth, 1 time a day (at 5 pm). 08/28/14 Lisinopril 5 Mg Tablet5 Mg PO DAILY 08/28/14 Flecainide Acetate 50 Mg [id number] Mg PO BID 07/15/13 Aspirin (Aspir 81)81 Mg Tablet.dr81 Mg PO DAILY 07/15/13 Warfarin Sodium (Coumadin)2.5 Mg Tablet 02/13/14 Lisinopril 2.5 Mg Tablet2.5 Mg PO DAILY 07/15/13 Discharge Disposition Stable to home in good condition. Followup: Followup with Dr. Appiah in the next one to 2 weeks. She will call for this appointment. We will refer her to maintenance instructor including Dr. Ann or Dr. Torres in the near future for possible ablation. Restrictions: No bathing x5 days. It is okay to shower. No lifting greater than 10 pounds for 7 days. Diet: Heart healthy This patient was evaluated by Dr. Appiah on the date of discharge and the plan of care was determined by him. This discharge took greater than 30 minutes to complete. Copies To 1: TYRONE APPIAH MD Copies To 2: STACIE ELLIS DO Discharge Physical Exam General Vital Signs 08/28/14 08/31/14 13:58 07:48 Temp 97.9 Pulse 57 Resp 12 B/P 139/63 Pulse Ox 95 O2 Delivery Room Air O2 Flow Rate 2.00 Height (Inches): 3.00 Weight (Kilograms): 85.600 Laboratory Laboratory Laboratory Tests Test 08/31/14 04:23 White Blood Count 15.1 T/MM3 Red Blood Count 4.70 M/MM3 Hemoglobin 13.7 GM/DL Hematocrit 42.4 % Mean Corpuscular Volume 90.2 UM3 Mean Corpuscular Hemoglobin 29.1 UUG Mean Corpuscular Hemoglobin 32.3 GM/DL Concent RDW Standard Deviation 43.9 FL Platelet Count 264 T/MM3 Mean Platelet Volume 10.3 UM3 Neutrophils % (Manual) 86.0 % Band Neutrophils % 1.0 % Lymphocytes % (Manual) 12.0 % Monocytes % (Manual) 1.0 % Neutrophils # (Manual) 13.0 T/MM3 Band Neutrophils # 0.2 T/MM3 Lymphocytes # (Manual) 1.8 T/MM3 Monocytes # (Manual) 0.2 T/MM3 Turbidity < 20 Sodium Level 138 MEQ/L Potassium Level 4.5 MEQ/L Chloride Level 103 MEQ/L Carbon Dioxide Level 26 MEQ/L Anion Gap 9 MEQ/L Blood Urea Nitrogen 18.0 MG/DL Creatinine 0.9 MG/DL Glomerular Filtration Rate 62 Calc BUN/Creatinine Ratio 20 RATIO Glucose Level 169 MG/DL Calculated Osmolality 272 MOSM/KG Calcium Level 9.6 MG/DL Icterus Index < 2 Chemistry Specimen Hemolysis < 15 Medications Medications Medications (Trade) Dose Ordered Sig/Arash Route PRN Reason Start Time Stop Time Status Last Admin Dose Admin Acetaminophen (Tylenol) 325-650 MG Q5H PRN PO PAIN 08/29/14 16:45 08/30/14 02:29 Acetaminophen (Tylenol) 500 mg Q6H PRN PO headache, fever 08/28/14 14:00 08/29/14 16:46 DC 08/29/14 07:51 Acetaminophen/ Hydrocodone Bitart ([place] 5) 1-2 TABLETS Q5H PRN PO PAIN 08/29/14 16:45 Al Hydroxide/Mg Hydroxide (Maalox) 30 ml PRN PRN PO INDIGESTION 08/29/14 16:45 08/30/14 05:42 Amiodarone HCl ([place]one) 200 mg DAILY PO 08/30/14 09:00 08/30/14 10:56 DC 08/30/14 08:12 Amiodarone HCl (Pacerone) 200 mg DAILY PO 08/30/14 17:00 08/30/14 19:49 DC 08/30/14 17:13 Amiodarone HCl (Pacerone) 200 mg O ONCE PO 08/29/14 20:43 08/30/14 06:56 DC 08/29/14 21:43 Amlodipine Besylate (Norvasc) 5 mg DAILY PO 08/30/14 11:00 08/31/14 08:41 Aspirin (ASA) 81 mg DAILY PO 08/29/14 09:00 08/29/14 16:45 DC 08/29/14 07:52 Aspirin (ASA) 324 mg O ONCE PO 08/28/14 10:15 08/28/14 10:16 DC 08/28/14 10:14 Aspirin (ASA) 325 mg STK-MED ONCE .ROUTE 08/29/14 15:44 08/29/14 15:45 DC Aspirin (Ecotrin) 325 mg DAILY PO 08/30/14 09:00 08/31/14 08:41 Atorvastatin Calcium (Lipitor) 40 mg HS PO 08/28/14 22:00 08/30/14 21:05 Atropine Sulfate (Atropine) 0.5 mg PRN PRN IV FOR PULSE <40bpm & SYMPTOMATIC 08/29/14 16:45 08/30/14 10:56 DC Bisacodyl (Dulcolax) 5-10 MG PRN PRN PO CONSTIPATION 08/29/14 16:45 Bisacodyl (Dulcolax) 10 mg PRN PRN RECTALLY CONSTIPATION 08/29/14 16:45 Buspirone HCl (Buspar) 10 mg BID/E PO 08/28/14 20:00 08/31/14 06:48 Citalopram Hydrobromide (Celexa) 20 mg DAILY PO 08/29/14 09:00 08/29/14 21:33 DC 08/28/14 21:24 Citalopram Hydrobromide (Celexa) 20 mg DAILY PO 08/29/14 22:00 08/30/14 06:14 DC 08/29/14 21:45 Citalopram Hydrobromide (Celexa) 20 mg HS PO 08/30/14 06:14 08/30/14 21:05 Clopidogrel Bisulfate (Plavix) 300 mg STK-MED ONCE .ROUTE 08/29/14 15:42 08/29/14 15:43 DC Clopidogrel Bisulfate 75 mg 75 mg DAILY PO 08/30/14 09:00 08/31/14 08:41 Diphenhydramine HCl (Benadryl) 25 mg O ONCE IV 08/30/14 19:00 08/30/14 19:08 DC 08/30/14 19:28 Diphenhydramine HCl (Benadryl) 25 mg Q4-6H PRN PO ITCHING 08/30/14 19:00 Diphenhydramine HCl (Benadryl) 50 mg FAMILY DINNER SERVICE SPECIALIST ONCE IV 08/29/14 13:00 08/29/14 13:01 DC Enoxaparin Sodium (Lovenox) 40 mg DAILY SQ 08/30/14 06:14 08/31/14 08:43 Enoxaparin Sodium (Lovenox) 40 mg DAILY SQ 08/29/14 22:00 08/30/14 06:14 DC 08/29/14 21:45 Enoxaparin Sodium (Lovenox) 87 mg BID SQ 08/28/14 21:00 08/29/14 17:16 DC 08/28/14 21:19 Enoxaparin Sodium (Lovenox) 87 mg BID SQ 08/29/14 21:00 08/29/14 21:33 DC Fentanyl (Fentanyl) 100 mcg STK-MED ONCE .ROUTE 08/29/14 15:21 08/29/14 15:22 DC Flecainide Acetate (Tambocor) 100 mg Q12HR PO 08/28/14 21:00 08/29/14 21:33 DC 08/29/14 07:52 Heparin Sodium (Porcine) (Heparin Bolus) 1,000 unit STK-MED ONCE IV 08/29/14 15:39 08/29/14 15:40 DC Heparin Sodium/ Sodium Chloride (Heparin 1000 Unit/NS 500 ml) 1,000 unit STK-MED ONCE IV 08/29/14 13:54 08/29/14 13:55 DC Hydralazine HCl (Apresoline) 20 mg STK-MED ONCE .ROUTE 08/29/14 15:31 08/29/14 15:32 DC Lidocaine HCl (Xylocaine 1%) 0.2 mg PRN PRN ID 08/28/14 10:15 08/28/14 13:07 DC Lidocaine HCl (Xylocaine 1%) 300 mg STK-MED ONCE .ROUTE 08/29/14 13:54 08/29/14 13:55 DC Lisinopril (Prinivil) 5 mg DAILY PO 08/29/14 09:00 08/30/14 10:56 DC 08/30/14 06:41 Lorazepam (Ativan) 0.5-1 MG Q4H PRN IV 08/29/14 16:45 08/29/14 22:45 DC Lorazepam (Ativan) 0.5-1 MG Q4H PRN PO 08/29/14 16:45 08/29/14 22:45 DC Losartan Potassium (Cozaar) 50 mg DAILY@2100 PO 08/31/14 21:00 Magnesium Hydroxide (Mom) 30 ml PRN PRN PO CONSTIPATION 08/29/14 16:45 Methylprednisolone Sodium Succinate (Solu-Medrol) 125 mg O ONCE IV 08/30/14 19:00 08/30/14 19:08 DC 08/30/14 19:28 Methylprednisolone Sodium Succinate (Solu-Medrol) 125 mg FAMILY DINNER SERVICE SPECIALIST ONCE IV 08/29/14 13:00 08/29/14 13:01 DC Metoclopramide HCl (Reglan) 5-10 MG Q6H PRN IV NAUSEA &/OR VOMITING 08/29/14 16:45 Metoprolol Tartrate (Lopressor) 25 mg BIDWM PO 08/28/14 17:30 08/31/14 08:45 Midazolam HCl (Versed) 2 mg STK-MED ONCE .ROUTE 08/29/14 15:21 08/29/14 15:22 DC Morphine Sulfate (Morphine) 2 mg O PRN IV pain after nitro 08/28/14 10:15 08/28/14 13:07 DC Morphine Sulfate (Morphine) 2 mg Q1H PRN IV PAIN 08/28/14 11:00 08/30/14 10:56 DC 08/30/14 04:42 Morphine Sulfate (Morphine) 2-4 MG Q2H PRN IV BACK, HIP, OR LEG PAIN 08/29/14 16:45 08/30/14 10:56 DC Morphine Sulfate (Morphine) 2-4MG Q5MIN PRN IV FOR UNRELIEVED ANGINA. 08/29/14 16:45 08/30/14 10:56 DC Nitroglycerin (Nitro-Bid) 1 inch O ONCE TOP 08/28/14 11:00 08/28/14 11:01 DC 08/28/14 11:38 Nitroglycerin (Nitro-Bid) 1 inch Q6HR TOP 08/28/14 15:00 08/29/14 21:33 DC 08/29/14 07:53 Nitroglycerin (Nitrostat) 0.4 mg Q5MIN PRN SL CHEST PAIN 08/28/14 10:15 08/28/14 13:07 DC 08/28/14 10:23 Nitroglycerin (Nitrostat) 0.4 mg Q5MIN PRN SL CHEST PAIN 08/28/14 11:00 08/29/14 16:48 DC Nitroglycerin (Nitrostat) 0.4 mg Q5MIN PRN SL ANG 08/29/14 16:45 Ondansetron HCl (Zofran) 4 mg O ONCE IV 08/28/14 10:15 08/28/14 10:16 DC Ondansetron HCl (Zofran) 4 mg Q6H PRN IV NAUSEA &/OR VOMITING 08/28/14 14:00 08/29/14 16:48 DC Ondansetron HCl (Zofran) 4 mg Q6H PRN IV NAUSEA &/OR VOMITING 08/29/14 16:45 Promethazine HCl (Phenergan) 12.5-25 MG Q6H PRN IV NAUSEA 08/29/14 16:45 08/30/14 10:56 DC Ranitidine HCl (Zantac) 150 mg DAILY PO 08/30/14 11:00 08/31/14 08:41 Sodium Chloride (Iv Flush) 10 ml PRN PRN IVF FLUSHING 08/28/14 10:15 08/28/14 13:07 DC 08/28/14 10:04 Sodium Chloride (Iv Flush) 10 ml PRN PRN IVF FLUSHING 08/28/14 11:00 08/31/14 08:42 Sodium Chloride (Iv Flush) 10 ml STK-MED ONCE .ROUTE 08/29/14 15:21 08/29/14 15:22 DC Sodium Chloride (NS) 1,000 ml @ 0 mls/hr Q0M ONCE IV 08/28/14 10:01 08/28/14 10:03 DC 08/28/14 10:38 Sodium Chloride (NS) 1,000 ml @ 75 mls/hr [id number] IV 08/29/14 09:00 08/29/14 16:47 DC 08/29/14 10:27 Sodium Chloride (NS) 1,000 ml @ 125 mls/hr Q8H IV 08/29/14 16:45 08/30/14 04:46 DC 08/29/14 20:25 Zolpidem Tartrate 10 mg 10 mg HS PRN PO SLEEP 08/28/14 14:00 Physicial Exam General: no distress Respiratory Effort: Found Normal Effort Cardiovascular: regular rate, regular rhythm Abdomen: soft TYRONE APPIAH MD 08/31/14 1237: Hospital Course The patient's white blood cell count was still high on the date of discharge greater than 15,000, however she had been afebrile and complains of nothing. Her urinalysis and chest x-ray are normal. It is likely worsens today due to to the initiation of Solu-Medrol for hives. Problems: Home Meds Active Scripts Diphenhydramine HCl (Benadryl)25 Mg Hibskjw65 Mg PO Q4-6H PRN (ITCHING) 14 Days Prov:NAVEEN HOWARD P.A. 08/31/14 Ranitidine HCl (Zantac)150 Mg Kfsewh106 Mg PO DAILY #30 TAB Ref 3 Prov:NAVEEN HOWARD Howard P.A. 08/31/14 Losartan Potassium (Cozaar)50 Mg Fpsrnc99 Mg PO DAILY@2100 #30 TAB Ref 3 Prov:NAVEEN HOWARD Howard P.A. 08/31/14 Clopidogrel Bisulfate (Plavix)75 Mg Lvtjtu11 Mg PO DAILY #30 TAB Ref 3 Prov:NAVEEN HOWARD P.A. 08/31/14 Aspirin (Ecotrin)325 Mg Yrexwt659 Mg PO DAILY 30 Days Ref 11 Prov:NAVEEN HOWARD P.A. 08/31/14 Reported Medications Metoprolol Tartrate 25 Mg Ybsldx50 Mg PO BIDWM Take 1 tab, by mouth, two time a day with meals. 08/28/14 Atorvastatin Calcium 40 Mg Ptploa92 Mg PO HS 07/15/13 Buspirone Hcl 10 Mg Wxcjem94 Mg PO BID/E 06/29/13 Citalopram (Celexa)20 Mg Tablet Daily 07/17/12 Discontinued Reported Medications Warfarin Sodium 2.5 Mg Tablet2.5 Mg PO FRIDAY Take 1 tablet, by mouth, 1 time a day (at 5 pm). 08/28/14 Warfarin Sodium 5 Mg Tablet5 Mg PO 1700 Take 1 tablet, by mouth, 1 time a day (at 5 pm). 08/28/14 Lisinopril 5 Mg Tablet5 Mg PO DAILY 08/28/14 Flecainide Acetate 50 Mg Zouuop32 Mg PO BID 07/15/13 Aspirin (Aspir 81)81 Mg Tablet.dr81 Mg PO DAILY 07/15/13 Warfarin Sodium (Coumadin)2.5 Mg Tablet 02/13/14 Lisinopril 2.5 Mg Tablet2.5 Mg PO DAILY 07/15/13 Discharge Disposition Patient seen and examined. Agree with plan of care. Education given on medications and ablation therapy. Copies To 1: TYRONE APPIAH MD Copies To 2: STACIE ELLIS DO Discharge Physical Exam General Height (Inches): 3.00 Weight (Kilograms): 85.600 NAVEEN HOWARD Aug 31, 2014 12:17 TYRONE APPIAH MD Aug 31, 2014 12:37 Procedures No known history of procedures. Encounters Encounter Location Date/Time Discharged Inpatient [facility] 08/30/14 10:57am Registered Clinic [facility] 08/29/14 6:00am Recent Diagnosis Angina pectoris, variant Atypical chest pain CAD (coronary artery disease) Hypertension Paroxysmal atrial fibrillation Dyslipidemia Shortness of breath Leukocytosis
--- OUTSIDE RECORDS SUMMARY | 2016-11-27 14:31 | XMS REPORT | Continuity of Care Document ---
Author Author [facility] Organization [facility] Address Unknown Phone Unavailable Support Name Relationship Address Phone BLESSING FREY DO Caregiver [facility] [address] [place] [address] STACIE ELLIS DO Caregiver [facility] [address] [place] [phone] RALPH INMAN Next Of Kin [address] [place] [id number] Insurance Providers Payer Name Policy Number Subscriber Name Relationship Medicare [id number] Bianka Eason 16 Self Problems Medical Problems Problem Onset Date Status Chest pain Unknown Active atrial fibrillation Unknown Active 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 Medications Medication Dose Route Sig [...] THREE TIMES A DAY 07/15/13 Active [Coumadin] 12/31/13 Active Meclizine Hcl 25 Mg PO THREE TIMES A DAY For VERTIGO 20 Qty 12/31/13 Active Social History Social History Problem Response Recorded Date/Time Smoking Status Unknown if ever smoked 12/31/2013 1:22am Chewing Tobacco Status No 12/31/2013 1:22am Hx Substance Use No 12/31/2013 1:22am Hx Alcohol Use No 12/31/2013 1:22am Has the pt used tobacco in the last 12 months No 06/29/2013 9:21am Query Response Start Date Stop Date Smoking Status Never smoker Hospital Discharge Instructions No hospital discharge instructions. Plan of Care No plan of care. Functional Status No functional status results. Allergies, Adverse Reactions, Alerts Allergen Type Severity Reaction Status Last Updated Iodine; Iodine Containing Allergy Unknown IVP DYE Active 12/31/13 Sulfa (Sulfonamide Antibiotics) Adverse Reaction Unknown NAUSEA [...] F (96.8 - 99.1) Temperature (Calculated Celsius) 36.81702 degrees C (36.0 - 37.3) Pulse Rate (adult) 22 bpm (60 - 100) Respiratory Rate 18 breaths/min (10 - 20) O2 Sat by Pulse Oximetry 95 % (90 - 100) Blood Pressure 175/74 mm Hg Height 5 ft 3 in Weight 174 lb Body Mass Index 30.0 kg/m^2 Results Test Source Date Result Interp. [...] Has specimen been collected/obtained? Y Urine Specific [place] December 31, 2013 2:10am <=1.005 L - [...] Report July 09, 2013 3:14pm REFERENCE LAB [id number] - EKG March 14, 2009 10:25am Complete [...] December 31, 2013 1:40am < 2 0-7 NE-Mjf-Y-Type Natriuretic Peptide December 31, 2013 1:40am 1120 PG/ML H 0- 175 Rule in cut points: <50 years old=450; 50-75 years old=900; >75 years old=1800; When utilizing ProBNP rule-in cut points, adjustment for impaired renal function is typically not required. Urine Culture Urine, Straight Cath July 07, 2013 5:19pm Gram Stain Arm-Left Lower April 29, 2009 4:38pm Procedures Procedure Status Date Provider(s) PLACE NEEDLE IN VEIN completed 12/31/13 BLESSING FREY DO Encounters Encounter Location Date/Time Departed Emergency Room [facility] 12/31/13 1:22am Registered Recurring [facility] 12/15/13 2:30pm Recent Diagnosis
--- OUTSIDE RECORDS SUMMARY | 2016-11-27 14:32 | XMS REPORT | Continuity of Care Document ---
Author Author [facility] Organization [facility] Address Unknown Phone Unavailable Allergies Active Description Code Type Severity Reaction Onset Reported/Identified Relationship to Patient Clinical Status Yes No Known Drug Allergies Drug Allergy N/A N/A 06/29/2013 Yes Iodinated Contrast Media - IV Drug Allergy N/A Adverse Reaction 06/30/2013 Yes Sulfa (Sulfonamide Antibiotics Drug Allergy N/A Adverse Reaction 06/30/2013 Medications Problems Date Dx Coded Attending Type Code Diagnosis Diagnosed By 06/29/2013 Tyrone Holland MD Final 272.4 HYPERLIPIDEMIA NEC NOS 06/29/2013 Tyrone Holland MD Final 276.8 HYPOPOTASSEMIA 06/29/2013 Tyrone Holland MD Final 285.1 ACUTE POSTHEMOR ANEMIA 06/29/2013 Tyrone Holland MD Final 296.80 BIPOLAR DISORDER NOS 06/29/2013 Tyrone Holland MD Final 300.00 ANXIETY STATE NOS 06/29/2013 Tyrone Holland MD Final 401.9 HYPERTENSION NOS 06/29/2013 Tyrone Holland MD Final 414.01 COR -OTOE-[place] VESSEL 06/29/2013 Tyrone Holland MD Final 427.31 ATRIAL FIBRILLATION 06/29/2013 Tyrone Holland MD Final 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 Visit Date/Time Discharge Status Pt. Type Provider Facility Loc./Unit Complaint [id number] 07/13/2013 00:42:00 2012 13:26:00 DIS Outpatient Kurt Meng MD [address] [id number] 06/29/2013 15:35:00 2012 18:15:00 DIS Inpatient Tyrone Holland MD [address]
--- OUTSIDE RECORDS SUMMARY | 2016-11-27 14:32 | XMS REPORT | Continuity of Care Document ---
Author Author [facility] Organization [facility] Address Unknown Phone Unavailable Support Name Relationship Address Phone TYRONE APPIAH MD Caregiver [facility] [address] [place] [address] [address] [place] [address] STACIE BENOIT MD Caregiver [facility] [address] [place] [address] Unavailable STACIE ELLIS DO Caregiver [facility] [address] [place] [address] [address] [place], [place] [phone] GREYSON JOHN Next Of Kin [address] [facility] [facility] [address] [place], [place] [phone] Insurance Providers Payer Name Policy Number Subscriber Name Relationship Medicare [id number] Bianka Eason 16 Self Advance Directives Directive [...] weeks. We will refer you to an scrub technician for further evaluation and possible ablation of [...] 911. Condition at time of discharge: Fair Plan of Care Discharge Date 08/31/14 4:00pm Disposition 01 DISCHARGED HOME, SELF-CARE Instructions/Education Provided [facility] Heart Cath DI for Atypical Chest Pain [...] F (96.8 - 99.1) Temperature (Calculated Celsius) 36.65857 degrees C (36.0 - 37.3) Pulse Rate (adult) 56 bpm (60 - 100) Respiratory Rate 12 breaths/min (10 - 20) O2 Sat by Pulse Oximetry 96 % (90 - 100) Oxygen Delivery Method Room Air Blood Pressure 165/81 mm Hg Blood Pressure Source Automatic Cuff Height 0 ft 3 in Weight 188 lb Body Mass Index 37402.0 kg/m^2 Results Test Source Date Result Interp. [...] Report July 09, 2013 3:14pm REFER[facility] LAB [id number] - Lipase August 28, 2014 10:02am 152 [...] 29, 2014 4:25am 13.1 % H 0-9.0 CO-Dva-U-Type Natriuretic Peptide August 30, 2014 4:29am 791 [...] - CALL RESULTS TO . Urine Nitrite August 30, 2014 11:35am Negative - Has specimen been collected/obtained? Y Urine Protein August 30, 2014 11:35am Negative - Has specimen been collected/obtained? Y Urine RBC August 30, 2014 11:35am 3-5 /HPF H - Has specimen been collected/obtained? Y Urine Renal Epithelial Cells December 21, 2009 1:38am 3-5 /HPF - Has specimen been collected/obtained? Y Urine Specific [place] August 30, 2014 11:35am <=1.005 L - [...] 2009 4:38pm Name: BIANKA EASON Unit #: [id number] : 1945 Sex: F DISCHARGE SUMMARY Admit Date: 08/30/14 Report #: [id number] NAVEEN HOWARD 08/31/14 1217: General Date Date DATE: 08/31/14 [...] discomfort in had left heart catheterization on [address] Appiah. This revealed up to [...] We will send her to see an scrub technician in the near future for possible ablation. [...] Meds Active Scripts Diphenhydramine HCl (Benadryl)25 Mg Isuejtf98 Mg PO Q4-6H PRN (ITCHING) 14 Days Prov:NAVEEN HOWARD P.A. 08/31/14 Ranitidine HCl (Zantac)150 Mg Ziuhhq390 Mg PO DAILY #30 TAB Ref 3 Prov:NAVEEN HOWARD P.A. 08/31/14 Losartan Potassium (Cozaar)50 Mg Msbmqo63 Mg PO DAILY@2100 #30 TAB Ref 3 Prov:NAVEEN HOWARD P.A. 08/31/14 Clopidogrel Bisulfate (Plavix)75 Mg Xqyosq58 Mg PO DAILY #30 TAB Ref 3 Prov:NAVEEN HOWARD P.A. 08/31/14 Aspirin (Ecotrin)325 Mg Lkpqum747 Mg PO DAILY 30 Days Ref 11 Prov:NAVEEN HOWARD P.A. 08/31/14 Reported Medications Metoprolol Tartrate 25 Mg Aljyiz19 Mg PO BIDWM Take 1 tab, by mouth, two time a day with meals. 08/28/14 Atorvastatin Calcium 40 Mg Wykcgf73 Mg PO HS 07/15/13 Buspirone Hcl 10 Mg Vqbvxp29 Mg PO BID/E 06/29/13 Citalopram (Celexa)20 Mg [...] PO DAILY 08/28/14 Flecainide Acetate 50 Mg Reupcb00 Mg PO BID 07/15/13 Aspirin (Aspir 81)81 Mg Tablet.dr81 Mg PO DAILY 07/15/13 Warfarin Sodium (Coumadin)2.5 Mg Tablet 02/13/14 Lisinopril 2.5 Mg Tablet2.5 Mg PO DAILY 07/15/13 Discharge Disposition Stable to home in good condition. Followup: Followup with Dr. Appiah in the next one to 2 weeks. She will call for this appointment. We will refer her to scrub technician including Dr. Ann or Dr. Torres in [...] 16:46 DC 08/29/14 07:51 Acetaminophen/ Hydrocodone Bitart ([place] 5) 1-2 TABLETS Q5H PRN PO PAIN [...] 08/30/14 19:00 Diphenhydramine HCl (Benadryl) 50 mg MERCURY WASHER ONCE IV 08/29/14 13:00 08/29/14 13:01 DC [...] 19:28 Methylprednisolone Sodium Succinate (Solu-Medrol) 125 mg MERCURY WASHER ONCE IV 08/29/14 13:00 08/29/14 13:01 DC [...] Chloride (NS) 1,000 ml @ 75 mls/hr [id number] IV 08/29/14 09:00 08/29/14 16:47 DC 08/29/14 [...] Meds Active Scripts Diphenhydramine HCl (Benadryl)25 Mg Bbkeuvq01 Mg PO Q4-6H PRN (ITCHING) 14 Days Prov:GABRIELA HOWARDDRAKE Lawrence P.A. 08/31/14 Ranitidine HCl (Zantac)150 Mg Knbari184 Mg PO DAILY #30 TAB Ref 3 Prov:NAVEEN HOWARD Howard P.A. 08/31/14 Losartan Potassium (Cozaar)50 Mg Vqvvxr26 Mg PO DAILY@2100 #30 TAB Ref 3 Prov:ANITANAVEEN Lawrence P.A. 08/31/14 Clopidogrel Bisulfate (Plavix)75 Mg Bketlx45 Mg PO DAILY #30 TAB Ref 3 Prov:GABRIELA HOWARDDRAKE Lawrence P.A. 08/31/14 Aspirin (Ecotrin)325 Mg Ylmftq022 Mg PO DAILY 30 Days Ref 11 Prov:GABRIELA HOWARDDRAKE Lawrence P.A. 08/31/14 Reported Medications Metoprolol Tartrate 25 Mg Ixxykj94 Mg PO BIDWM Take 1 tab, by mouth, two time a day with meals. 08/28/14 Atorvastatin Calcium 40 Mg Jzzbxp65 Mg PO HS 07/15/13 Buspirone Hcl 10 Mg Lmifkj93 Mg PO BID/E 06/29/13 Citalopram (Celexa)20 Mg [...] PO DAILY 08/28/14 Flecainide Acetate 50 Mg Drnxsd08 Mg PO BID 07/15/13 Aspirin (Aspir 81)81 [...] General Height (Inches): 3.00 Weight (Kilograms): 85.600 ANITA,NAVEEN Rosa Aug 31, 2014 12:17 TYRONE APPIAH MD Aug 31, 2014 12:37 Procedures No known history of procedures. Encounters Encounter Location Date/Time Discharged Inpatient [facility] 08/30/14 10:57am Recent Diagnosis Angina pectoris, variant Atypical chest pain CAD (coronary artery disease) Hypertension Paroxysmal atrial fibrillation Dyslipidemia Shortness of breath Leukocytosis
--- NOTE | 2016-11-27 14:40 | NUR ---
EKG EKG TAKEN AND GIVEN TO DR FREY
--- NOTE | 2016-11-27 14:44 | NUR ---
IV IVL STARTED AND BLOOD COLLECTED
--- NOTE | 2016-11-27 14:47 | NUR ---
PROVIDER DR FREY TO SEE PT
[2016-11-27] MEDS: NITROGLYCERIN 0.4 MG SUBLINGUAL TABLET SL PRN ×3 (14:50→15:03)
[2016-11-27 14:51] LABS: BASOPHILS % (AUTO) 0.5 % (0-2); EOSINOPHILS # (AUTO) 0.2 T/MM3 (0-0.5); HCT - HEMATOCRIT 41.6 % (36-46); HGB - HEMOGLOBIN 14.2 GM/DL (12-16); IMMATURE GRANULOCYTE # (AUTO) 0.01 T/MM3 (0.00-0.03); IMMATURE GRANULOCYTE % (AUTO) 0.1 % (0.0-0.5); LYMPHOCYTES # (AUTO) 2.9 T/MM3 (1-4.8); LYMPHOCYTES % (AUTO) 39.6 % (23-45); MEAN CORPUSCULAR HGB 30.6 UUG (26-34); MEAN CORPUSCULAR HGB CONC(MCHC 34.1 GM/DL (31-37); MEAN CORPUSCULAR VOLUME 89.7 UM3 (80-100); MEAN PLATELET VOLUME 9.7 UM3 (9.4-12.4); MONOCYTES # (AUTO) 0.8 T/MM3 (0-0.8); MONOCYTES % (AUTO) 10.8 % (0-9.0); NEUTROPHILS #(AUTO)-ABSOLUTE 3.4 T/MM3 (1.8-7.7); RED BLOOD COUNT 4.64 M/MM3 (4.00-5.20); WBC - WHITE BLOOD COUNT 7.3 T/MM3 (4.5-11.0)
--- NOTE | 2016-11-27 14:56 | ERPDOC ---
Departure Disposition Decision Date: November 27, 2016 Disposition Decision Time: 15:25 Disposition: 01 DISCHARGED HOME, SELF-CARE Impression Impression Impression: Primary Impression: Chest pain Severity: Mild Condition: Improved Seen By: Physician only Referrals: STACIE ELLIS DO (Family) Patient Instructions: Chest Pain (ED) Problems/Meds/Labs Reviewed?: Yes Medications reviewed and manag: Yes Follow up care ordered?: Yes Mental Status: Alert, Oriented HPI - Chest Pain General Chief Complaint: Chest Pain Stated Complaint: CHEST PAIN Time Seen by Provider: 14:53 Source: patient (Patient presents to the ER with chest pain. Patient apparently began to have pain approx 1 week ago intermittantly. Today she developed chest pain prior to a scheduled stress test. The test was performed with active chest pain, and she continued to have pain following the procedure. Patient states the pain worsened this afternoon, prompting a visit to the ER. ), RN notes reviewed Exam Limitations: no limitations HPI - Chest Pain Occurred At: home Onset/Timing: Changing over time Duration: 6-12 hrs Pain/Severity Scale: Now & Worst: 4/10 Activities at Onset/Context: activity Location: substernal Quality: 'pain' Modifying Factors: IMPROVES WITH: rest Associated Symptoms: denies symptoms Chest Pain Radiation: no radiation Nitro Today/Relief: 0.4 mg x 3, provided by ED (2 additional at home ), no relief Aspirin Treatment Today: 325 mg x 1, provided by ED Prior Chest Pain/Cardiac Tom: cardiac cath, stress test, other (CABG) Hx of Similar Symptoms: Yes Allergies: Coded Allergies: Iodine and Iodide Containing Produc (Verified Allergy, Unknown, IVP DYE, ) Sulfa (Sulfonamide Antibiotics) (Verified Adverse Reaction, Unknown, NAUSEA, 11/27/16) Past History Patient Surgical History CABG x3 and Cardiac catheterization as above Cholecystectomy Hysterectomy Past Medical History Metabolic: hypercholesterolemia, hypertension Cardiac: A-fib, CAD, angina Hx Echocardiogram: No Musculoskeletal: osteoarthritis Psychological: anxiety, bipolar Surgical History General: gallbladder Cardiac: cardiac bypass, cardiac stent Reproductive/: hysterectomy Family History Family PMH: FOUND: CVA, cancer Vaccines Hx Influenza Vaccination: Yes (04/2016) Hx Pneumococcal Vaccination: Yes (Fall 2013) Hx Tetanus Diptheria: Yes (04/29/09) Hx Tetanus, Diptheria, Pertuss: No Social History Does patient use chewing tobac: No Substance Use Type: does not use Alcohol Intake: none Marital Status: Housing: house Service: No Occupational Hazard: No Advance Directives: Yes Full Code Record Review Pertinent history updated: Yes Review of Systems Constitutional Constitutional: DENIES: chills, fever Eyes Lids/Accessories: DENIES: erythema, swelling ENMT Ears: DENIES: erythema, pain Balance: DENIES: ataxia, vertigo Sinuses: DENIES: congestion, rhinorrhea Mouth/Throat: DENIES: sore throat Cardiovascular Cardiac: chest pain, DENIES: dyspnea on exertion, orthopnea Rhythm/Rate: DENIES: tachycardia Pulmonary Respiratory: DENIES: cough, dyspnea, sputum GI Upper Abdomen: DENIES: nausea, pain, vomiting Lower Abdomen: DENIES: constipation, diarrhea, pain General: DENIES: dysuria Musculoskeletal General: DENIES: cramps, joint pain, joint swelling, pain, tenderness, weakness Integumentary Skin: DENIES: color change, itching, rash Neurological General: DENIES: ataxia, change in strength, headache, numbness, poor coordination, seizures, syncope, vertigo, weakness Psychiatric Psychiatric: DENIES: anxiety, depression, nervousness Hematologic/Lymphatic Hematologic/Lymphatic: DENIES: anemia Allergic/Immunological Allergic/Immunoligical: DENIES: sneezing All other Systems All Other Systems: Reviewed and Negative Physical Exam General General Nourishment: well nourished, well developed, appears stated age, adult General Body Habitus: well groomed Vitals and Pain First Documented Vital Signs Date Time Temp Pulse Resp B/P Pulse Ox O2 Delivery O2 Flow Rate FiO2 11/27/16 14:30 98.1 62 18 192/83 97 Room Air Weight: Kilograms: Height (feet): 5 Height (inches): 3.00 Triage Pain Scale: RN VS reviewed by Provider: Yes Eyes (brief) Eyes Brief: found: EOMI, PERRL ENMT (brief) ENMT Brief: FOUND: TM clear, TM good light reflex, mucosa moist, NOT FOUND: pharnyx erythema Neck (brief) Neck: FOUND: trachea midline, NOT FOUND: adenopathy, tenderness, tracheal deviation Respiratory (brief) Respiratory: FOUND: clear all harkins, equal bilaterally Cardiovascular (brief) Cardiac: FOUND: pedal edema, regular rate, regular rhythm Capillary Refill: <2 sec Pulses: all distal extremities, equal, strong Abdomen (brief) Abdominal Brief: FOUND: bowel normo active x4, soft, NOT FOUND: distended, tender Lymphatic (brief) Lymphatic Brief: NOT FOUND: adenopathy Musculoskeletal (brief) Musculoskeletal Brief: NOT FOUND: spasm, tenderness Integumentary (brief) Integumentary Brief: FOUND: pink, warm Neurologic (brief) Neurological Brief: FOUND: CN w/o gross def to obs, gait w/o gross def to obs, motor-no gross deficits, sensory-no gross deficits, NOT FOUND: ataxia Psychiatric (brief) Psychiatric Brief: FOUND: alert, attentive, normal affect, oriented Differential Diagnoses Considering: Acute [place], Angina, Costochondritis, Pericarditis, Pneumonia, Pulmonary Edema, Other Progress Results/Orders Orders Procedure Category Date Status Time Cbc W/Auto LAB 11/27/16 Complete Diff-Reflex Manual 14:28 Bmp - Basic Metabolic LAB 11/27/16 Complete Panel 14:28 Probnp LAB 11/27/16 Complete 14:28 Troponin I W LAB 11/27/16 Complete Hemolysis Index 14:28 INR LAB 11/27/16 Complete 14:28 EKG EKG 11/27/16 Logged 14:28 Chest 1 View RAD 11/27/16 Resulted 14:28 Iv Lock (Ed Only) EDM 11/27/16 Transmitted 14:28 Aspirin (Asa) PHA 11/27/16 Complete 14:30 Nitroglycerin PHA 11/27/16 Complete (Nitrostat) 14:30 Nitroglycerin PHA 11/27/16 In Process Ointment (Nitro-Bid) 15:30 Place In Facility: ED ADM 11/27/16 Transmitted 15:[address] For ED ADM 11/27/16 Transmitted Further Orders 15:25 Notify Adm Physician SAIMA 11/27/16 In Process In Am 15:25 Measure Vital Signs SAIMA 11/27/16 In Process 15:25 Up In Room With Assist SAIMA 11/27/16 In Process 15:25 Telemetry SAIMA 11/27/16 In Process 15:25 Npo: Nothing By Mouth DIET 11/27/16 Transmitted Dinner Iv Lock (Nursing) SAIMA 11/27/16 In Process 15:25 Nitroglycerin PHA 11/27/16 In Process (Nitrostat) 15:30 Morphine Sulfate PHA 11/27/16 In Process (Morphine) 15:30 Troponin I W LAB 11/27/16 Logged Hemolysis Index 20:30 Troponin I W LAB 11/28/16 Verified Hemolysis Index 02:30 Lab Results Laboratory Tests Test 11/27/16 14:44 White Blood Count 7.3T/MM3 Red Blood Count 4.64M/MM3 Hemoglobin 14.2GM/DL Hematocrit 41.6% Mean Corpuscular Volume 89.7UM3 Mean Corpuscular Hemoglobin 30.6UUG Mean Corpuscular Hemoglobin Concent 34.1GM/DL RDW Standard Deviation 41.9FL Platelet Count 245T/MM3 Mean Platelet Volume 9.7UM3 Immature Granulocyte % (Auto) 0.1% Neutrophils (%) (Auto) 46.0% Lymphocytes (%) (Auto) 39.6% Monocytes (%) (Auto) 10.8% Eosinophils (%) (Auto) 3.0% Basophils (%) (Auto) 0.5% Absolute Immature Granulocyte (auto 0.01T/MM3 Absolute Neutrophils (auto) 3.4T/MM3 Absolute Lymphocytes (auto) 2.9T/MM3 Absolute Monocytes (auto) 0.8T/MM3 Absolute Eosinophils (auto) 0.2T/MM3 Absolute Basophils (auto) 0.0T/MM3 Prothromb Time International Ratio 1.12 Turbidity < 20 Sodium Level 146MEQ/L Potassium Level 3.4MEQ/L Chloride Level 109MEQ/L Carbon Dioxide Level 23MEQ/L Anion Gap 14MEQ/L Blood Urea Nitrogen 16.0MG/DL Creatinine 0.9MG/DL Glomerular Filtration Rate Calc 61 BUN/Creatinine Ratio 18RATIO Glucose Level 109MG/DL Calculated Osmolality 283MOSM/KG Calcium Level 9.4MG/DL Icterus Index < 2 Troponin I < 0.012ng/ml TT-Cgt-V-Type Natriuretic Peptide 190PG/ML Chemistry Specimen Hemolysis < 15 Medications Current ED Medications Aspirin (ASA) 324 mg O ONCE PO ; Start 11/27/16 at 14:30; Stop 11/27/16 at 14: 31; Status DC Nitroglycerin (Nitrostat) 0.4 mg Q5MIN PRN SL CHEST PAIN Last administered on t 15:03; Start 11/27/16 at 14:30; Stop 11/27/16 at 15:03; Status DC Nitroglycerin (Nitro-Bid) 0.5 inch O ONCE TOP ; Start 11/27/16 at 15:30; Stop 11/27/16 at 15:31 Nitroglycerin (Nitrostat) 0.4 mg Q5MIN PRN SL CHEST PAIN; Start 11/27/16 at 15: 30 Morphine Sulfate (Morphine) 2 mg Q1H PRN IV PAIN; Start 11/27/16 at 15:30 EKG EKG : Rate: 60-100 Rhythm: sinus [place]: normal QRS: normal Intervals: normal ST/T: non-specific changes Interpreted by: signing physician EKG ScImage/Picomm EKG interpreted in ScImage/Pic: No Consult/PCP Consult/PCP : Physician Contacted: Dr. Holland Time Called: 15:00 Time of first response: 15:15 Type of discussion: Phone Consult/PCP Discussion Details Discussed patient examination, labs, imaging Comments Will admit to OBS Xray Xray : Reason for Exam: chest pain Xray: CXR Portable Interpretation: Normal, Interpreted by BLESSING Gomez DO November 27, 2016 14:56
--- NOTE | 2016-11-27 15:00 | DI ---
Indication: ITS.REASON: Chest Pain PROCEDURE: CHEST 1 VIEW: Encounter: Initial Comparison: 07/04/2016 FINDINGS: The lungs are clear without evidence of focal abnormal airspace opacity. There is no pleural effusion or pneumothorax. There is slight tenting of the left hemidiaphragm indicating scarring. The heart size, mediastinal contours and pulmonary vascularity are within normal limits. There is no significant skeletal abnormality. Sternotomy wires are seen in midline. IMPRESSION: No acute cardiopulmonary disease. .
[2016-11-27 15:02] LABS: ANION GAP 14 MEQ/L (5-15); BUN/CREATININE RATIO 18 RATIO (6-26); CALCIUM 9.4 MG/DL (8.4-10.2); CHLORIDE 109 MEQ/L (98-107); CO2 - CARBON DIOXIDE 23 MEQ/L (22-30); CREATININE 0.9 MG/DL (0.7-1.2); GLOMERULAR FILTRATION RATE 61; GLUCOSE 109 MG/DL (65-110); POTASSIUM 3.4 MEQ/L (3.6-5); SODIUM 146 MEQ/L (134-144)
--- NOTE | 2016-11-27 15:10 | NUR ---
COMFORT PT RATES PAIN 4-5/10. PT HAD SOME RELIEF AFTER 1ST AND 2ND NITRO BUT DENIES ANY CHANGE AFTER 3RD NITRO. PT DOES FEEL LIKE SHE IS RESTING BETTER
[2016-11-27] MEDS ORDERED: QUET25TA73 PO (15:13)
[2016-11-27] MEDS ORDERED: AMLO5TAB2 PO (15:13)
[2016-11-27] MEDS ORDERED: ISOS30TA6 PO (15:13)
[2016-11-27 15:14] LABS: PROBNP 190 PG/ML (0-175)
[2016-11-27 15:19] LABS: INR 1.12 (0.76-1.04); PROTHROMBIN TIME 12.2 SEC (9.31-12.49)
--- OUTSIDE RECORDS SUMMARY | 2016-11-27 15:22 | XMS REPORT | Continuity of Care Document ---
Author Author [facility] Organization [facility] Address Unknown Phone Unavailable Support Name Relationship Address Phone BLESSING FREY DO Caregiver [facility] [address] [place] [address] STACIE ELLIS DO Caregiver [facility] [address] [place] [phone] RALPH INMAN Next Of Kin [address] [place] [id number] Insurance Providers Payer Name Policy Number Subscriber Name Relationship Medicare [id number] Bianka Eason 16 Self Problems Medical Problems [...] F (96.8 - 99.1) Temperature (Calculated Celsius) 36.79759 degrees C (36.0 - 37.3) Pulse Rate [...] Has specimen been collected/obtained? Y Urine Specific [place] December 31, 2013 2:10am <=1.005 L - [...] Report July 09, 2013 3:14pm REFERENCE LAB [id number] - EKG March 14, 2009 10:25am Complete [...] December 31, 2013 1:40am < 2 0-7 JC-Igp-P-Type Natriuretic Peptide December 31, 2013 1:40am 1120 [...] Encounters Encounter Location Date/Time Departed Emergency Room [facility] 12/31/13 1:22am Registered Recurring [facility] 12/15/13 2:30pm Recent Diagnosis
--- OUTSIDE RECORDS SUMMARY | 2016-11-27 15:22 | XMS REPORT | Continuity of Care Document ---
Author Author [facility] Organization [facility] Address Unknown Phone Unavailable Support Name Relationship Address Phone STACIE ELLIS DO Caregiver [facility] [address] [place] [phone] SHI BHAKTA MD Caregiver [address] [place] [address] [place] [phone] RALPH INMAN Next Of Kin [address] [place] [address] Insurance Providers Payer Name Policy Number Subscriber Name Relationship Medicare [id number] Bianka Eason 16 Self Problems Medical Problems [...] F (96.8 - 99.1) Temperature (Calculated Celsius) 36.48904 degrees C (36.0 - 37.3) Pulse Rate [...] 2013 3:45pm Present - CALL RESULTS TO [phone]. Urine Nitrite December 31, 2013 2:10am Negative - Has specimen been collected/obtained? Y Urine Protein December 31, 2013 2:10am Negative - Has specimen been collected/obtained? Y Urine RBC December 31, 2013 2:10am 3-5 /HPF H - Has specimen been collected /obtained? Y Urine Renal Epithelial Cells December 21, 2009 1:38am 3-5 /HPF - Has specimen been collected/obtained? Y Urine Specific [place] December 31, 2013 2:10am <=1.005 L - [...] Report July 09, 2013 3:14pm REFERENCE LAB [id number] - EKG March 14, 2009 10:25am Complete [...] December 31, 2013 1:40am < 2 0-7 VU-Cue-D-Type Natriuretic Peptide December 31, 2013 1:40am 1120 PG/ML H 0- 175 Rule in cut points: <50 years old=450; 50-75 years old=900; >75 years old=1800; When utilizing ProBNP rule-in cut points, adjustment for impaired renal function is typically not required. Urine Culture Urine, Straight Cath July 07, 2013 5:19pm Gram Stain Arm-Left Lower April 29, 2009 4:38pm Name: BIANKA EASON Unit #: [id number] : 1945 Sex: F Loc / Svc: ED DOS: 12/31/13 Signed Report #: [id number] DIAGNOSTIC IMAGING REPORT TYPE OF EXAM: CHEST [...] Encounters Encounter Location Date/Time Departed Emergency Room [facility] 02/13/14 7:12pm Departed Emergency Room [facility] 12/31/13 1:22am Discharged Recurring [facility] 12/15/13 2:30pm Recent Diagnosis
--- OUTSIDE RECORDS SUMMARY | 2016-11-27 15:23 | XMS REPORT | Continuity of Care Document ---
Author Author [facility] Organization [facility] Address Unknown Phone Unavailable Support Name Relationship Address Phone TYRONE APPIAH MD Caregiver [facility] [address] [place] [address] [address] [place] [address] STACIE BENOIT MD Caregiver [facility] [address] [place] [address] Unavailable STACIE ELLIS DO Caregiver [facility] [address] [place] [address] [address] [place], [place] [phone] GREYSON JOHN Next Of Kin [address] [facility] [address] [place], [place] [id number] Insurance Providers Payer Name Policy Number Subscriber Name Relationship Medicare [id number] Bianka Eason 16 Self Advance Directives Directive [...] weeks. We will refer you to an actimize architect for further evaluation and possible ablation of [...] Disposition 01 DISCHARGED HOME, SELF-CARE Instructions/Education Provided [facility] [place] DI for Atypical Chest Pain [...] F (96.8 - 99.1) Temperature (Calculated Celsius) 36.67536 degrees C (36.0 - 37.3) Pulse Rate (adult) 56 bpm (60 - 100) Respiratory Rate 12 breaths/min (10 - 20) O2 Sat by Pulse Oximetry 96 % (90 - 100) Oxygen Delivery Method Room Air Blood Pressure 165/81 mm Hg Blood Pressure Source Automatic Cuff Height 0 ft 3 in Weight 188 lb Body Mass Index 99596.0 kg/m^2 Results Test Source Date Result Interp. [...] Report July 09, 2013 3:14pm REFERENCE LAB [id number] - Lipase August 28, 2014 10:02am 152 [...] 29, 2014 4:25am 13.1 % H 0-9.0 PH-Qbf-V-Type Natriuretic Peptide August 30, 2014 4:29am 791 [...] Has specimen been collected/obtained? Y Urine Specific [place] August 30, 2014 11:35am <=1.005 L - [...] 2009 4:38pm Name: BIANKA EASON Unit #: [id number] : 1945 Sex: F DISCHARGE SUMMARY Admit Date: 08/30/14 Report #: [id number] NAVEEN HOWARD 08/31/14 1217: General Date Date [...] We will send her to see an actimize architect in the near future for possible ablation. [...] Meds Active Scripts Diphenhydramine HCl (Benadryl)25 Mg Wznqhgp36 Mg PO Q4-6H PRN (ITCHING) 14 Days Prov:NAVEEN HOWARD P.A. 08/31/14 Ranitidine HCl (Zantac)150 Mg Mfutlh822 Mg PO DAILY #30 TAB Ref 3 Prov:NAVEEN HOWARD P.A. 08/31/14 Losartan Potassium (Cozaar)50 Mg Qsechs37 Mg PO DAILY@2100 #30 TAB Ref 3 Prov:NAVEEN HOWARD P.A. 08/31/14 Clopidogrel Bisulfate (Plavix)75 Mg Fhcaza39 Mg PO DAILY #30 TAB Ref 3 Prov:NAVEEN HOWARD P.A. 08/31/14 Aspirin (Ecotrin)325 Mg Rqmetm745 Mg PO DAILY 30 Days Ref 11 Prov:NAVEEN HOWARD P.A. 08/31/14 Reported Medications Metoprolol Tartrate 25 Mg Rpkqxp78 Mg PO BIDWM Take 1 tab, by mouth, two time a day with meals. 08/28/14 Atorvastatin Calcium 40 Mg Svdcnl49 Mg PO HS 07/15/13 Buspirone Hcl 10 Mg Lxbqfa37 Mg PO BID/E 06/29/13 Citalopram (Celexa)20 Mg [...] PO DAILY 08/28/14 Flecainide Acetate 50 Mg Popwnu51 Mg PO BID 07/15/13 Aspirin (Aspir 81)81 Mg Tablet.dr81 Mg PO DAILY 07/15/13 Warfarin Sodium (Coumadin)2.5 Mg Tablet 02/13/14 Lisinopril 2.5 Mg Tablet2.5 Mg PO DAILY 07/15/13 Discharge Disposition Stable to home in good condition. Followup: Followup with Dr. Appiah in the next one to 2 weeks. She will call for this appointment. We will refer her to actimize architect including Dr. Ann or Dr. Torres in [...] 16:46 DC 08/29/14 07:51 Acetaminophen/ Hydrocodone Bitart ([place] 5) 1-2 TABLETS Q5H PRN PO PAIN [...] 08/30/14 19:00 Diphenhydramine HCl (Benadryl) 50 mg PROGRAMMER [employer] ONCE IV 08/29/14 13:00 08/29/14 13:01 DC [...] 19:28 Methylprednisolone Sodium Succinate (Solu-Medrol) 125 mg [employer]GRAMMER [employer] ON[employer] IV 08/29/14 13:00 08/29/14 13:01 DC [...] Chloride (NS) 1,000 ml @ 75 mls/hr [id number] IV 08/29/14 09:00 08/29/14 16:47 DC 08/29/14 [...] Meds Active Scripts Diphenhydramine HCl (Benadryl)25 Mg Duulnoz42 Mg PO Q4-6H PRN (ITCHING) 14 Days Prov:GABRIELA HOWARDDRAKE Lawrence P.A. 08/31/14 Ranitidine HCl (Zantac)150 Mg Qreiyl799 Mg PO DAILY #30 TAB Ref 3 Prov:NAVEEN HOWARD Howard P.A. 08/31/14 Losartan Potassium (Cozaar)50 Mg Redhpv15 Mg PO DAILY@2100 #30 TAB Ref 3 Prov:ANITANAVEEN Lawrence P.A. 08/31/14 Clopidogrel Bisulfate (Plavix)75 Mg Jqbmwc01 Mg PO DAILY #30 TAB Ref 3 Prov:GABRIELA HOWARDDRAKE Lawrence P.A. 08/31/14 Aspirin (Ecotrin)325 Mg Xleryu128 Mg PO DAILY 30 Days Ref 11 Prov:GABRIELA HOWARDDRAKE Lawrence P.A. 08/31/14 Reported Medications Metoprolol Tartrate 25 Mg Eqcerc83 Mg PO BIDWM Take 1 tab, by mouth, two time a day with meals. 08/28/14 Atorvastatin Calcium 40 Mg Gjymfi82 Mg PO HS 07/15/13 Buspirone Hcl 10 Mg Wfkymm72 Mg PO BID/E 06/29/13 Citalopram (Celexa)20 Mg [...] PO DAILY 08/28/14 Flecainide Acetate 50 Mg Lytwhe68 Mg PO BID 07/15/13 Aspirin (Aspir 81)81 [...] procedures. Encounters Encounter Location Date/Time Discharged Inpatient [facility] 08/30/14 10:57am Recent Diagnosis Angina pectoris, variant Atypical chest pain CAD (coronary artery disease) Hypertension Paroxysmal atrial fibrillation Dyslipidemia Shortness of breath Leukocytosis
--- OUTSIDE RECORDS SUMMARY | 2016-11-27 15:23 | XMS REPORT | Continuity of Care Document ---
Author Author [facility] Organization [facility] Address Unknown Phone Unavailable Support Name Relationship Address Phone TYRONE APPIAH MD Caregiver [facility] [address] [place] [address] [address] [place] [address] STACIE BENOIT MD Caregiver [facility] [address] [facility] [address] Unavailable STACIE ELLIS DO Caregiver [facility]INE [address] [place] [address] [address] [place], [place] [phone] GREYSON JOHN Next Of Kin [address] [facility] [address] [place], [place] [id number] Insurance Providers Payer Name Policy Number Subscriber Name Relationship Medicare [id number] Bianka Eason 16 Self Advance Directives Directive [...] weeks. We will refer you to an ceramic sprayer for further evaluation and possible ablation of [...] Disposition 01 DISCHARGED HOME, SELF-CARE Instructions/Education [place] [facility] [place] for Atypical Chest Pain [...] F (96.8 - 99.1) Temperature (Calculated Celsius) 36.93071 degrees C (36.0 - 37.3) Pulse Rate (adult) 56 bpm (60 - 100) Respiratory Rate 12 breaths/min (10 - 20) O2 Sat by Pulse Oximetry 96 % (90 - 100) Oxygen Delivery Method Room Air Blood Pressure 165/81 mm Hg Blood Pressure Source Automatic Cuff Height 0 ft 3 in Weight 188 lb Body Mass Index 96109.0 kg/m^2 Results Test Source Date Result Interp. [...] Report July 09, 2013 3:14pm REFERENCE LAB [id number] - Lipase August 28, 2014 10:02am 152 [...] 29, 2014 4:25am 13.1 % H 0-9.0 TJ-Fkr-T-Type Natriuretic Peptide August 30, 2014 4:29am 791 [...] 2013 3:45pm Present - CALL RESULTS TO [phone]. Urine Nitrite August 30, 2014 11:35am Negative - Has specimen been collected/obtained? Y Urine Protein August 30, 2014 11:35am Negative - Has specimen been collected/obtained? Y Urine RBC August 30, 2014 11:35am 3-5 /HPF H - Has specimen been collected/obtained? Y Urine Renal Epithelial Cells December 21, 2009 1:38am 3-5 /HPF - Has specimen been collected/obtained? Y Urine Specific [place] August 30, 2014 11:35am <=1.005 L - [...] 2009 4:38pm Name: BIANKA EASON Unit #: [id number] : 1945 Sex: F DISCHARGE SUMMARY Admit Date: 08/30/14 Report #: [id number] NAVEEN HOWARD Shelley 08/31/14 1217: General Date [...] We will send her to see an ceramic sprayer in the near future for possible ablation. [...] Meds Active Scripts Diphenhydramine HCl (Benadryl)25 Mg Wgkmigm73 Mg PO Q4-6H PRN (ITCHING) 14 Days Prov:NAVEEN HOWARD P.A. 08/31/14 Ranitidine HCl (Zantac)150 Mg Tlikzk792 Mg PO DAILY #30 TAB Ref 3 Prov:NAVEEN HOWARD P.A. 08/31/14 Losartan Potassium (Cozaar)50 Mg Fjuqto30 Mg PO DAILY@2100 #30 TAB Ref 3 Prov:NAVEEN HOWARD P.A. 08/31/14 Clopidogrel Bisulfate (Plavix)75 Mg Uuysvb08 Mg PO DAILY #30 TAB Ref 3 Prov:NAVEEN HOWARD P.A. 08/31/14 Aspirin (Ecotrin)325 Mg Skjtbs008 Mg PO DAILY 30 Days Ref 11 Prov:NAVEEN HOWARD P.A. 08/31/14 Reported Medications Metoprolol Tartrate 25 Mg Mkmdiv73 Mg PO BIDWM Take 1 tab, by mouth, two time a day with meals. 08/28/14 Atorvastatin Calcium 40 Mg Xyohzt34 Mg PO HS 07/15/13 Buspirone Hcl 10 Mg Mhzqmx31 Mg PO BID/E 06/29/13 Citalopram (Celexa)20 Mg [...] PO DAILY 08/28/14 Flecainide Acetate 50 Mg Rhqhib49 Mg PO BID 07/15/13 Aspirin (Aspir 81)81 Mg Tablet.dr81 Mg PO DAILY 07/15/13 Warfarin Sodium (Coumadin)2.5 Mg Tablet 02/13/14 Lisinopril 2.5 Mg Tablet2.5 Mg PO DAILY 07/15/13 Discharge Disposition Stable to home in good condition. Followup: Followup with Dr. Appiah in the next one to 2 weeks. She will call for this appointment. We will refer her to ceramic sprayer including Dr. Ann or Dr. Torres in [...] 30 minutes to complete. Copies To 1: TRYONE APPIAH MD Copies To 2: STACIE ELLIS [...] 16:46 DC 08/29/14 07:51 Acetaminophen/ Hydrocodone Bitart ([place] 5) 1-2 TABLETS Q5H PRN PO PAIN [...] 08/30/14 19:00 Diphenhydramine HCl (Benadryl) 50 mg TEAM OTR TRUCK DRIVER ONCE IV 08/29/14 13:00 08/29/14 13:01 DC [...] 19:28 Methylprednisolone Sodium Succinate (Solu-Medrol) 125 mg TEAM OTR TRUCK DRIVER ONCE IV 08/29/14 13:00 08/29/14 13:01 DC [...] Chloride (NS) 1,000 ml @ 75 mls/hr [id number] IV 08/29/14 09:00 08/29/14 16:47 DC 08/29/14 [...] Meds Active Scripts Diphenhydramine HCl (Benadryl)25 Mg Ksfqgjm52 Mg PO Q4-6H PRN (ITCHING) 14 Days Prov:NAVEEN HOWARD P.A. 08/31/14 Ranitidine HCl (Zantac)150 Mg Lmklyo014 Mg PO DAILY #30 TAB Ref 3 Prov:NAVEEN HOWARD Howard P.A. 08/31/14 Losartan Potassium (Cozaar)50 Mg Voabrh94 Mg PO DAILY@2100 #30 TAB Ref 3 Prov:NAVEEN HOWARD Howard P.A. 08/31/14 Clopidogrel Bisulfate (Plavix)75 Mg Jaigxl52 Mg PO DAILY #30 TAB Ref 3 Prov:NAVEEN HOWARD P.A. 08/31/14 Aspirin (Ecotrin)325 Mg Htxbep609 Mg PO DAILY 30 Days Ref 11 Prov:NAVEEN HOWARD P.A. 08/31/14 Reported Medications Metoprolol Tartrate 25 Mg Fyabfm05 Mg PO BIDWM Take 1 tab, by mouth, two time a day with meals. 08/28/14 Atorvastatin Calcium 40 Mg Xyuhuw47 Mg PO HS 07/15/13 Buspirone Hcl 10 Mg Loywij61 Mg PO BID/E 06/29/13 Citalopram (Celexa)20 Mg [...] PO DAILY 08/28/14 Flecainide Acetate 50 Mg Gjucww96 Mg PO BID 07/15/13 Aspirin (Aspir 81)81 [...] procedures. Encounters Encounter Location Date/Time Discharged Inpatient [facility] 08/30/14 10:57am Registered Clinic [facility] 08/29/14 6:00am Recent Diagnosis Angina pectoris, variant Atypical chest pain CAD (coronary artery disease) Hypertension Paroxysmal atrial fibrillation Dyslipidemia Shortness of breath Leukocytosis
--- OUTSIDE RECORDS SUMMARY | 2016-11-27 15:23 | XMS REPORT | Continuity of Care Document ---
Author Author [facility] Organization [facility] Address Unknown Phone Unavailable Allergies Active [...] 06/29/2013 Tyrone Holland MD Final 414.01 COR -KNIK VESSEL 06/29/2013 Tyrone Holland MD Final 427.31 [...] Status Pt. Type Provider Facility Loc./Unit Complaint [id number] 07/13/2013 00:42:00 2012 13:26:00 DIS Outpatient Kurt Meng MD [address] [id number] 06/29/2013 15:35:00 2012 18:15:00 DIS Inpatient Tyrone Holland MD [address]
--- OUTSIDE RECORDS SUMMARY | 2016-11-27 15:23 | XMS REPORT | Continuity of Care Document ---
Author Author Jorge [facility] LIVE Organization [facility] LIVE Address Unknown Phone Unavailable Support Name Relationship Address Phone STACIE ELLIS DO Caregiver [facility] MEDICINE [address] [facility] [address] [place] [phone] SHI BHAKTA MD Caregiver [address] [place] [address] [place] [phone] RALPH INMAN Next Of Kin [address] [place] [address] Insurance Providers Payer Name Policy Number Subscriber Name Relationship Medicare [id number] Bianka Eason 16 Self Problems Medical Problems [...] F (96.8 - 99.1) Temperature (Calculated Celsius) 36.06682 degrees C (36.0 - 37.3) Pulse Rate [...] Has specimen been collected/obtained? Y Urine Specific Veteran December 31, 2013 2:10am <=1.005 L - [...] Report July 09, 2013 3:14pm REFERENCE LAB [id number] - EKG March 14, 2009 10:25am Complete [...] December 31, 2013 1:40am < 2 0-7 BU-Jgh-L-Type Natriuretic Peptide December 31, 2013 1:40am 1120 PG/ML H 0- 175 Rule in cut points: <50 years old=450; 50-75 years old=900; >75 years old=1800; When utilizing ProBNP rule-in cut points, adjustment for impaired renal function is typically not required. Urine Culture Urine, Straight Cath July 07, 2013 5:19pm Gram Stain Arm-Left Lower April 29, 2009 4:38pm Name: BIANKA EASON Unit #: [id number] : 1945 Sex: F Loc / Svc: ED DOS: 12/31/13 Signed Report #: [id number] DIAGNOSTIC IMAGING REPORT TYPE OF EXAM: CHEST [...] Encounters Encounter Location Date/Time Departed Emergency Room [facility] 02/13/14 7:12pm Departed Emergency Room [facility] 12/31/13 1:22am Registered Recurring [facility] 12/15/13 2:30pm Recent Diagnosis
[2016-11-27] MEDS ORDERED: MORPHINE SULFATE 2 MG SYRINGE IV PRN (15:30)
[2016-11-27] MEDS ORDERED: NITROGLYCERIN 2% OINTMENT 1 G PACKET TOP ONE (15:30)
--- OUTSIDE RECORDS SUMMARY | 2016-11-27 15:40 | XMS REPORT | Continuity of Care Document ---
Author Author Jorge [facility] LIVE Organization [facility] LIVE Address Unknown Phone Unavailable Support Name Relationship Address Phone STACIE ELLIS DO Caregiver [facility] MEDICINE [address] [facility] [address] [place] [phone] SHI BHAKTA MD Caregiver [address] [place] [address] [place] [phone] RALPH INMAN Next Of Kin [address] [place] [address] Insurance Providers Payer Name Policy Number Subscriber Name Relationship Medicare [id number] Bianka Eason 16 Self Problems Medical Problems [...] F (96.8 - 99.1) Temperature (Calculated Celsius) 36.00224 degrees C (36.0 - 37.3) Pulse Rate [...] Has specimen been collected/obtained? Y Urine Specific [place] December 31, 2013 2:10am <=1.005 L - [...] Report July 09, 2013 3:14pm REFERENCE LAB [id number] - EKG March 14, 2009 10:25am Complete [...] December 31, 2013 1:40am < 2 0-7 AZ-Yqa-C-Type Natriuretic Peptide December 31, 2013 1:40am 1120 PG/ML H 0- 175 Rule in cut points: <50 years old=450; 50-75 years old=900; >75 years old=1800; When utilizing ProBNP rule-in cut points, adjustment for impaired renal function is typically not required. Urine Culture Urine, Straight Cath July 07, 2013 5:19pm Gram Stain Arm-Left Lower April 29, 2009 4:38pm Name: BIANKA EASON Unit #: [id number] : 1945 Sex: F Loc / Svc: ED DOS: 12/31/13 Signed Report #: [id number] DIAGNOSTIC IMAGING REPORT TYPE OF EXAM: CHEST [...] Encounters Encounter Location Date/Time Departed Emergency Room [facility] 02/13/14 7:12pm Departed Emergency Room [facility] 12/31/13 1:22am Registered Recurring [facility] 12/15/13 2:30pm Recent Diagnosis
--- OUTSIDE RECORDS SUMMARY | 2016-11-27 15:40 | XMS REPORT | Continuity of Care Document ---
Author Author [facility] Organization [facility]IVE Address Unknown Phone Unavailable Support Name Relationship Address Phone BLESSING FREY DO Caregiver [facility] [address] [place] [address] STACIE ELLIS DO Caregiver [facility] MEDICINE [address] [facility] [address] [place] [phone] ARLPH INMAN Next Of Kin [address] [place] [id number] Insurance Providers Payer Name Policy Number Subscriber Name Relationship Medicare [id number] Bianka Eason 16 Self Problems Medical Problems [...] F (96.8 - 99.1) Temperature (Calculated Celsius) 36.54201 degrees C (36.0 - 37.3) Pulse Rate [...] 2013 3:45pm Present - CALL RESULTS TO [phone]. Urine Nitrite December 31, 2013 2:10am Negative - Has specimen been collected/obtained? Y Urine Protein December 31, 2013 2:10am Negative - Has specimen been collected/obtained? Y Urine RBC December 31, 2013 2:10am 3-5 /HPF H - Has specimen been collected /obtained? Y Urine Renal Epithelial Cells December 21, 2009 1:38am 3-5 /HPF - Has specimen been collected/obtained? Y Urine Specific [place] December 31, 2013 2:10am <=1.005 L - [...] Report July 09, 2013 3:14pm REFERENCE LAB [id number] - EKG March 14, 2009 10:25am Complete [...] December 31, 2013 1:40am < 2 0-7 ZN-Sgz-Y-Type Natriuretic Peptide December 31, 2013 1:40am 1120 [...] Encounters Encounter Location Date/Time Departed Emergency Room [facility] 12/31/13 1:22am Registered Recurring [facility] 12/15/13 2:30pm Recent Diagnosis
--- OUTSIDE RECORDS SUMMARY | 2016-11-27 15:40 | XMS REPORT | Continuity of Care Document ---
Author Author Jorge [facility] LIVE Organization [facility] LIVE Address Unknown Phone Unavailable Support Name Relationship Address Phone STACIE ELLIS DO Caregiver [facility] MEDICINE [address] [facility] [address] [place] [phone] SHI BHAKTA MD Caregiver [address] [place] [address] [place] [phone] RALPH INMAN Next Of Kin [address] [place] [address] Insurance Providers Payer Name Policy Number Subscriber Name Relationship Medicare [id number] Bianka Eason 16 Self Problems Medical Problems [...] F (96.8 - 99.1) Temperature (Calculated Celsius) 36.12358 degrees C (36.0 - 37.3) Pulse Rate [...] 2013 3:45pm Present - CALL RESULTS TO [phone]. Urine Nitrite December 31, 2013 2:10am Negative - Has specimen been collected/obtained? Y Urine Protein December 31, 2013 2:10am Negative - Has specimen been collected/obtained? Y Urine RBC December 31, 2013 2:10am 3-5 /HPF H - Has specimen been collected /obtained? Y Urine Renal Epithelial Cells December 21, 2009 1:38am 3-5 /HPF - Has specimen been collected/obtained? Y Urine Specific [place] December 31, 2013 2:10am <=1.005 L - [...] Report July 09, 2013 3:14pm REFERENCE LAB [id number] - EKG March 14, 2009 10:25am Complete [...] December 31, 2013 1:40am < 2 0-7 RH-Jlx-P-Type Natriuretic Peptide December 31, 2013 1:40am 1120 PG/ML H 0- 175 Rule in cut points: <50 years old=450; 50-75 years old=900; >75 years old=1800; When utilizing ProBNP rule-in cut points, adjustment for impaired renal function is typically not required. Urine Culture Urine, Straight Cath July 07, 2013 5:19pm Gram Stain Arm-Left Lower April 29, 2009 4:38pm Name: BIANKA EASON Unit #: [id number] : 1945 Sex: F Loc / Svc: ED DOS: 12/31/13 Signed Report #: [id number] DIAGNOSTIC IMAGING REPORT TYPE OF EXAM: CHEST [...] Encounters Encounter Location Date/Time Departed Emergency Room [facility] 02/13/14 7:12pm Departed Emergency Room [facility] 12/31/13 1:22am Discharged Recurring [facility] 12/15/13 2:30pm Recent Diagnosis
--- OUTSIDE RECORDS SUMMARY | 2016-11-27 15:41 | XMS REPORT | Continuity of Care Document ---
Author Author [facility] Organization [facility] Address Unknown Phone Unavailable Allergies [...] 06/29/2013 Tyrone Holland MD Final 414.01 COR -[place] VESSEL 06/29/2013 Tyrone Holland MD Final 427.31 [...] Status Pt. Type Provider Facility Loc./Unit Complaint [id number] 07/13/2013 00:42:00 2012 13:26:00 DIS Outpatient Kurt Meng MD [address] [id number] 06/29/2013 15:35:00 2012 18:15:00 DIS Inpatient Tyrone Holland MD [address]
--- OUTSIDE RECORDS SUMMARY | 2016-11-27 15:41 | XMS REPORT | Continuity of Care Document ---
Author Author [facility] Organization [facility] LIVE Address Unknown Phone Unavailable Support Name Relationship Address Phone TYRONE APPIAH MD Caregiver [facility] [address] [place] [address] [address] [place] [address] STACIE BENOIT MD Caregiver [facility] [address] [facility] [place] [address] Unavailable STACIE ELLIS DO Caregiver [facility] MEDICINE [address] [place] [address] [address] [place], [place] [phone] GREYSON JOHN Next Of Kin [address] [facility] [address] [place], [place] [id number] Insurance Providers Payer Name Policy Number Subscriber Name Relationship Medicare [id number] Bianka Eason 16 Self Advance Directives Directive [...] weeks. We will refer you to an bookkeeping assistant for further evaluation and possible ablation of [...] Disposition 01 DISCHARGED HOME, SELF-CARE Instructions/Education Provided [facility] Heart Cath DI for Atypical Chest Pain [...] F (96.8 - 99.1) Temperature (Calculated Celsius) 36.72600 degrees C (36.0 - 37.3) Pulse Rate (adult) 56 bpm (60 - 100) Respiratory Rate 12 breaths/min (10 - 20) O2 Sat by Pulse Oximetry 96 % (90 - 100) Oxygen Delivery Method Room Air Blood Pressure 165/81 mm Hg Blood Pressure Source Automatic Cuff Height 0 ft 3 in Weight 188 lb Body Mass Index 39675.0 kg/m^2 Results Test Source Date Result Interp. [...] Report July 09, 2013 3:14pm REFERENCE LAB [id number] - Lipase August 28, 2014 10:02am 152 [...] 29, 2014 4:25am 13.1 % H 0-9.0 QO-Cwd-F-Type Natriuretic Peptide August 30, 2014 4:29am 791 [...] 2013 3:45pm Present - CALL RESULTS TO [phone]. Urine Nitrite August 30, 2014 11:35am Negative - Has specimen been collected/obtained? Y Urine Protein August 30, 2014 11:35am Negative - Has specimen been collected/obtained? Y Urine RBC August 30, 2014 11:35am 3-5 /HPF H - Has specimen been collected/obtained? Y Urine Renal Epithelial Cells December 21, 2009 1:38am 3-5 /HPF - Has specimen been collected/obtained? Y Urine Specific [place] August 30, 2014 11:35am <=1.005 L - [...] 2009 4:38pm Name: BIANKA EASON Unit #: [id number] : 1945 Sex: F DISCHARGE SUMMARY Admit Date: 08/30/14 Report #: [id number] NAVEEN HOWARD 08/31/14 1217: General Date Date [...] We will send her to see an bookkeeping assistant in the near future for possible ablation. [...] Meds Active Scripts Diphenhydramine HCl (Benadryl)25 Mg Wcjpssa05 Mg PO Q4-6H PRN (ITCHING) 14 Days Prov:NAVEEN HOWARD P.A. 08/31/14 Ranitidine HCl (Zantac)150 Mg Siddbq839 Mg PO DAILY #30 TAB Ref 3 Prov:NAVEEN HOWARD P.A. 08/31/14 Losartan Potassium (Cozaar)50 Mg Jfrgxt40 Mg PO DAILY@2100 #30 TAB Ref 3 Prov:NAVEEN HOWARD P.A. 08/31/14 Clopidogrel Bisulfate (Plavix)75 Mg Xvzico94 Mg PO DAILY #30 TAB Ref 3 Prov:NAVEEN HOWARD P.A. 08/31/14 Aspirin (Ecotrin)325 Mg Nrlcvy610 Mg PO DAILY 30 Days Ref 11 Prov:NAVEEN HOWARD P.A. 08/31/14 Reported Medications Metoprolol Tartrate 25 Mg Tnxayk20 Mg PO BIDWM Take 1 tab, by mouth, two time a day with meals. 08/28/14 Atorvastatin Calcium 40 Mg Eiezcg37 Mg PO HS 07/15/13 Buspirone Hcl 10 Mg Uvzlgu98 Mg PO BID/E 06/29/13 Citalopram (Celexa)20 Mg [...] PO DAILY 08/28/14 Flecainide Acetate 50 Mg Xzcpir16 Mg PO BID 07/15/13 Aspirin (Aspir 81)81 Mg Tablet.dr81 Mg PO DAILY 07/15/13 Warfarin Sodium (Coumadin)2.5 Mg Tablet 02/13/14 Lisinopril 2.5 Mg Tablet2.5 Mg PO DAILY 07/15/13 Discharge Disposition Stable to home in good condition. Followup: Followup with Dr. Appiah in the next one to 2 weeks. She will call for this appointment. We will refer her to bookkeeping assistant including Dr. Ann or Dr. Torres in [...] 16:46 DC 08/29/14 07:51 Acetaminophen/ Hydrocodone Bitart ([place] 5) 1-2 TABLETS Q5H PRN PO PAIN [...] 08/30/14 19:00 Diphenhydramine HCl (Benadryl) 50 mg LABORER PIE BAKERY ONCE IV 08/29/14 13:00 08/29/14 13:01 DC [...] 19:28 Methylprednisolone Sodium Succinate (Solu-Medrol) 125 mg LABORER PIE BAKERY ONCE IV 08/29/14 13:00 08/29/14 13:01 DC [...] Chloride (NS) 1,000 ml @ 75 mls/hr [id number] IV 08/29/14 09:00 08/29/14 16:47 DC 08/29/14 [...] Meds Active Scripts Diphenhydramine HCl (Benadryl)25 Mg Tfgkydr05 Mg PO Q4-6H PRN (ITCHING) 14 Days Prov:GABRIELA HOWARDDRAKE Lawrence P.A. 08/31/14 Ranitidine HCl (Zantac)150 Mg Wupyts752 Mg PO DAILY #30 TAB Ref 3 Prov:NAVEEN HOWARD Howard P.A. 08/31/14 Losartan Potassium (Cozaar)50 Mg Bbkqij28 Mg PO DAILY@2100 #30 TAB Ref 3 Prov:ANITANAVEEN Lawrence P.A. 08/31/14 Clopidogrel Bisulfate (Plavix)75 Mg Iloqxx07 Mg PO DAILY #30 TAB Ref 3 Prov:GABRIELA HOWARDDRAKE Lawrence P.A. 08/31/14 Aspirin (Ecotrin)325 Mg Upptra863 Mg PO DAILY 30 Days Ref 11 Prov:GABRIELA HOWARDDRAKE Lawrence P.A. 08/31/14 Reported Medications Metoprolol Tartrate 25 Mg Enqbsw83 Mg PO BIDWM Take 1 tab, by mouth, two time a day with meals. 08/28/14 Atorvastatin Calcium 40 Mg Zgsvoo29 Mg PO HS 07/15/13 Buspirone Hcl 10 Mg Guawpv69 Mg PO BID/E 06/29/13 Citalopram (Celexa)20 Mg [...] PO DAILY 08/28/14 Flecainide Acetate 50 Mg Gfpyjv58 Mg PO BID 07/15/13 Aspirin (Aspir 81)81 [...] procedures. Encounters Encounter Location Date/Time Discharged Inpatient [facility] 08/30/14 10:57am Recent Diagnosis Angina pectoris, variant Atypical chest pain CAD (coronary artery disease) Hypertension Paroxysmal atrial fibrillation Dyslipidemia Shortness of breath Leukocytosis
--- OUTSIDE RECORDS SUMMARY | 2016-11-27 15:41 | XMS REPORT | Continuity of Care Document ---
Author Author [facility] LIVE Organization [facility] LIVE Address Unknown Phone Unavailable Support Name Relationship Address Phone TYRONE APPIAH MD Caregiver [facility] [address] [place] [address] [address] [place] [address] STACIE BENOIT MD Caregiver [facility] [address] [facility] [address] Unavailable STCAIE ELLIS DO Caregiver [facility] MEDICINE [address] [place] [address] [address] [place], [place] [phone] GREYSON JOHN Next Of Kin [address] [facility] [address] [place], [place] [id number] Insurance Providers Payer Name Policy Number Subscriber Name Relationship Medicare [id number] Bianka Eason 16 Self Advance Directives Directive [...] weeks. We will refer you to an body repairer for further evaluation and possible ablation of [...] Disposition 01 DISCHARGED HOME, SELF-CARE Instructions/Education Provided [facility] Heart Cath DI for Atypical Chest Pain [...] F (96.8 - 99.1) Temperature (Calculated Celsius) 36.35878 degrees C (36.0 - 37.3) Pulse Rate (adult) 56 bpm (60 - 100) Respiratory Rate 12 breaths/min (10 - 20) O2 Sat by Pulse Oximetry 96 % (90 - 100) Oxygen Delivery Method Room Air Blood Pressure 165/81 mm Hg Blood Pressure Source Automatic Cuff Height 0 ft 3 in Weight 188 lb Body Mass Index 87673.0 kg/m^2 Results Test Source Date Result Interp. [...] Report July 09, 2013 3:14pm REFERENCE LAB [id number] - Lipase August 28, 2014 10:02am 152 [...] 29, 2014 4:25am 13.1 % H 0-9.0 VH-Yyi-C-Type Natriuretic Peptide August 30, 2014 4:29am 791 [...] Has specimen been collected/obtained? Y Urine Specific [place] August 30, 2014 11:35am <=1.005 L - [...] 2009 4:38pm Name: BIANKA EASON Unit #: [id number] : 1945 Sex: F DISCHARGE SUMMARY Admit Date: 08/30/14 Report #: [id number] NAVEEN HOWARD Shelley 08/31/14 1217: General Date [...] We will send her to see an body repairer in the near future for possible ablation. [...] Meds Active Scripts Diphenhydramine HCl (Benadryl)25 Mg Nllrzyi80 Mg PO Q4-6H PRN (ITCHING) 14 Days Prov:NAVEEN HOWARD P.A. 08/31/14 Ranitidine HCl (Zantac)150 Mg Yynnls963 Mg PO DAILY #30 TAB Ref 3 Prov:NAVEEN HOWARD P.A. 08/31/14 Losartan Potassium (Cozaar)50 Mg Ovwpfz17 Mg PO DAILY@2100 #30 TAB Ref 3 Prov:NAVEEN HOWARD P.A. 08/31/14 Clopidogrel Bisulfate (Plavix)75 Mg Qxcsra25 Mg PO DAILY #30 TAB Ref 3 Prov:NAVEEN HOWARD P.A. 08/31/14 Aspirin (Ecotrin)325 Mg Enioov851 Mg PO DAILY 30 Days Ref 11 Prov:NAVEEN HOWARD P.A. 08/31/14 Reported Medications Metoprolol Tartrate 25 Mg Hdpmsb66 Mg PO BIDWM Take 1 tab, by mouth, two time a day with meals. 08/28/14 Atorvastatin Calcium 40 Mg Apuzoo50 Mg PO HS 07/15/13 Buspirone Hcl 10 Mg Ochfpk21 Mg PO BID/E 06/29/13 Citalopram (Celexa)20 Mg [...] PO DAILY 08/28/14 Flecainide Acetate 50 Mg Aexqqe76 Mg PO BID 07/15/13 Aspirin (Aspir 81)81 Mg Tablet.dr81 Mg PO DAILY 07/15/13 Warfarin Sodium (Coumadin)2.5 Mg Tablet 02/13/14 Lisinopril 2.5 Mg Tablet2.5 Mg PO DAILY 07/15/13 Discharge Disposition Stable to home in good condition. Followup: Followup with Dr. Appiah in the next one to 2 weeks. She will call for this appointment. We will refer her to body repairer including Dr. Ann or Dr. Torres in [...] 16:46 DC 08/29/14 07:51 Acetaminophen/ Hydrocodone Bitart ([place] 5) 1-2 TABLETS Q5H PRN PO PAIN [...] 08/30/14 19:00 Diphenhydramine HCl (Benadryl) 50 mg RADIO PRESENTER ONCE IV 08/29/14 13:00 08/29/14 13:01 DC [...] 19:28 Methylprednisolone Sodium Succinate (Solu-Medrol) 125 mg RADIO PRESENTER ONCE IV 08/29/14 13:00 08/29/14 13:01 DC [...] Chloride (NS) 1,000 ml @ 75 mls/hr [id number] IV 08/29/14 09:00 08/29/14 16:47 DC 08/29/14 [...] Meds Active Scripts Diphenhydramine HCl (Benadryl)25 Mg Ocgelez37 Mg PO Q4-6H PRN (ITCHING) 14 Days Prov:NAVEEN HOWARD P.A. 08/31/14 Ranitidine HCl (Zantac)150 Mg Jjslpr233 Mg PO DAILY #30 TAB Ref 3 Prov:NAVEEN HOWARD Howard P.A. 08/31/14 Losartan Potassium (Cozaar)50 Mg Qfcnnp03 Mg PO DAILY@2100 #30 TAB Ref 3 Prov:NAVEEN HOWARD Howard P.A. 08/31/14 Clopidogrel Bisulfate (Plavix)75 Mg Gsoren94 Mg PO DAILY #30 TAB Ref 3 Prov:NAVEEN HOWARD P.A. 08/31/14 Aspirin (Ecotrin)325 Mg Ksqysm759 Mg PO DAILY 30 Days Ref 11 Prov:NAVEEN HOWARD P.A. 08/31/14 Reported Medications Metoprolol Tartrate 25 Mg Uqrndv35 Mg PO BIDWM Take 1 tab, by mouth, two time a day with meals. 08/28/14 Atorvastatin Calcium 40 Mg Xjudwk40 Mg PO HS 07/15/13 Buspirone Hcl 10 Mg Docffy67 Mg PO BID/E 06/29/13 Citalopram (Celexa)20 Mg [...] PO DAILY 08/28/14 Flecainide Acetate 50 Mg Ozkxji04 Mg PO BID 07/15/13 Aspirin (Aspir 81)81 [...] procedures. Encounters Encounter Location Date/Time Discharged Inpatient [facility] 08/30/14 10:57am Registered Clinic [facility] 08/29/14 6:00am Recent Diagnosis Angina pectoris, variant Atypical chest pain CAD (coronary artery disease) Hypertension Paroxysmal atrial fibrillation Dyslipidemia Shortness of breath Leukocytosis
--- NOTE | 2016-11-27 15:58 | NUR ---
REPORT REPORT TO [facility]
--- NOTE | 2016-11-27 16:05 | NUR ---
TRANSPORT PT TO ROOM 124 PER WC
--- NOTE | 2016-11-27 16:08 | NUR ---
CARE PT LEFT IN OF [facility] RN ROOM 124. PT TRANSFERED TO BED WITHOUT INCIDENT
--- NOTE | 2016-11-27 16:08 | NUR ---
ADMIT PT ADMITTED TO ROOM 124 AT THIS TIME VIA WHEELCHAIR. PT TRANSFERRED SELF FROM TO BED. BED ALARM PLACED. VITAL SIGNS STABLE ON ROOM AIR. 2L OF O2 PLACED VIA NC FOR COMFORT PURPOSES ONLY. PT CONTINUES TO RATE CONSTANT PAIN A 4/10 IN HER LEFT CHEST, RADIATING TO HER LEFT ARM. CALL LIGHT IN REACH. WILL CONTINUE TO MONITOR.
[2016-11-27 16:09] VITALS: Ht 160 cm; Wt 82.1 kg
[2016-11-27 16:17] VITALS: BP 163/74; PULSE 60; RESP 19; TEMP 98.9; O2SAT 97
[2016-11-27 16:23] VITALS: PULSE 58; RESP 19
[2016-11-27] MEDS ORDERED: ACETAMINOPHEN 325 MG TABLET PO PRN (17:15)
[2016-11-27] MEDS ORDERED: KETOROLAC 30mg/ml INJECTION IV ONE (17:15)
[2016-11-27 20:08] VITALS: PULSE 70; RESP 19
[2016-11-28] VITALS (17 sets, daily range): BP systolic 102–156; BP diastolic 55–73; PULSE 60–67; RESP 11–22; TEMP 98.4; O2SAT 90–99
--- NOTE | 2016-11-28 03:13 | NUR ---
Chart Check 24 hour chart check completed
--- NOTE | 2016-11-28 05:23 | NUR ---
SUMMARY PT DENIED NEEDS THROUGHOUT NIGHT. AT 0230, PT STATES THE CHEST DISCOMFORT IS "ALMOST GONE", TROPONIN CAME BACK WNL AT THAT TIME.
[2016-11-28] MEDS: NITROGLYCERIN 0.4 MG SUBLINGUAL TABLET SL PRN ×3 (08:13→08:49)
--- NOTE | 2016-11-28 09:02 | NUR ---
CM CM IN TO VISIT PATIENT, SHE IS A&O. GRANDDAUGHTER IS PRESENT IN ROOM. PATIENT PLANS TO DISCHARGE HOME, DENIES NEEDS. CM CONTACT INFORMATION GIVEN. PATIENT WOULD LIKE TO MAKE CHANGES TO A CURRENT DPOA, LEFT NEW FORM. Addendum: 11/28/16 at 0903 by DANETTE RICO RN Amended: Links added.
[2016-11-28] MEDS ORDERED: NORMAL SALINE 1,000 ML IV SCH (09:45)
--- NOTE | 2016-11-28 11:07 | HPPDOC ---
SAMUEL FLORENCE SEASONAL DELIVERY DRIVER 11/28/16 1055: HPI - Adult Date DATE: 11/28/16 TIME: 10:45 General Date of Admission Date of Admission: November 27, 2016 at 15:25 Chief Complaint: chest pain History of Present Illness Trinidad is a 71 year old female who is well known to Dr. Appiah with a history of CAD with CABG, HTN, HLD and paroxysmal A Fib who has been reporting increased precordial pain that usually doesn't last very long and nothing specific brings it on or makes it resolve. She reported chest pain at [facility] on 11/18/16 and was sent to see Dr. Appiah in the clinic on 11/19/16 and had a stress test yesterday which she reports she had chest pain before and during. Following that she went home but the chest pain increased intensity and was not relieved by her home Nitro so she presented to the ED. She was admitted to observation where Nitro paste was applied and she continues to report chest pain. Serial troponin levels are negative, EKG is is with NSSTT changes. Past Medical History Past Medical History Metabolic: hypercholesterolemia, hypertension Cardiac: A-fib, CAD, angina Musculoskeletal: osteoarthritis Psychological: anxiety, bipolar Surgical History General: gallbladder Cardiac: cardiac bypass, cardiac stent Reproductive/: hysterectomy Current Medications Home Meds Reported Medications Quetiapine Fumarate (Quetiapine Fumarate) 25 Mg Tablet, 25 MG PO HS 11/27/16 Amlodipine Besylate (Amlodipine Besylate) 5 Mg Tablet, 5 MG PO DAILY 11/27/16 Nitroglycerin (Nitroglycerin) 0.4 Mg Tab.subl, 0.4 MG PO Q5MIN Y for CHEST PAIN 07/04/16 Clopidogrel Bisulfate (Clopidogrel) 75 Mg Tablet, 75 MG PO DAILY 07/04/16 Aspirin *EC* (Aspirin EC) 325 Mg Tablet.dr, 325 MG PO DAILY 07/04/16 Ranitidine HCl (Zantac) 150 Mg Tablet, 150 MG PO BID 03/11/16 Citalopram (Celexa) 20 Mg Tablet, 20 MG PO HS 07/17/12 Discontinued Reported Medications Isosorbide Mononitrate (Isosorbide Mononitrate ER) 30 Mg Tab.er.24h, 30 MG PO DAILY 11/27/16 Allergies: Coded Allergies: Iodine and Iodide Containing Produc (Verified Allergy, Unknown, IVP DYE, ) Sulfa (Sulfonamide Antibiotics) (Verified Adverse Reaction, Unknown, NAUSEA, 11/27/16) Family History FOUND: CVA, cancer Vaccines fall Social History Smoking Status: Never smoker Does patient use chewing tobac: No Substance Use Type: does not use Alcohol Intake: none Marital Status: Housing: house Service: No Occupational Hazard: No Advance Directives: Yes DPOA for Healthcare Only, Yes Full Code Review of Systems Constitutional: REPORTS: fatigue, DENIES: chills, dizziness, fever, weakness Eyes Vision: DENIES: vision changes ENMT Hearing: DENIES: tinnitus Balance: DENIES: vertigo Sinuses: NOT FOUND: rhinorrhea Mouth/Throat: DENIES: sore throat Cardiovascular DENIES: chest pain, dyspnea on exertion, murmur, paroxysmal nocturnal dysp Rhythm/Rate: palpitations, DENIES: irregular beat Pulmonary Respiratory: DENIES: cough, sputum GI Upper Abdomen: DENIES: nausea, vomiting Lower Abdomen: DENIES: diarrhea General: DENIES: dysuria Integumentary Skin: DENIES: rash, sores Neurological General: DENIES: headache, numbness, seizures, syncope, weakness All Other Systems All Other Systems: Reviewed (remainder of 10-point ROS Neg.) Physical Exam General General Nourishment: well nourished, well developed, obese, apparent age Vital Signs Vital Signs Date Time Temp Pulse Resp B/P Pulse Ox O2 Delivery O2 Flow Rate FiO2 11/28/16 08:31 63 21 11/28/16 08:22 117/59 97 Nasal Cannula 2.00 11/28/16 00:32 98.4 Height (Feet): 5 Height (Inches): 3.00 Telemetry Rhythm: Sinus Rhythm ENMT Brief: FOUND: mucosa moist Neck Brief: NOT FOUND: JVD, carotid bruits Respiratory Brief: FOUND: clear all harkins, equal bilaterally, NOT FOUND: rales , wheezes Cardiovascular (brief) Cardiac Brief: FOUND: regular rate, regular rhythm, NOT FOUND: click, gallop, murmur, pedal edema Abdomen (brief) Abdominal Brief: FOUND: BS normo active x4, soft, NOT FOUND: tender Integumentary (brief) Integumentary Brief: FOUND: dry, pink, warm Neurologic RN Documented GCS Eye Opening: Verbal: Motor: Total: Psychiatric (brief) FOUND: alert, attentive, normal affect, oriented Laboratory Laboratory Tests Test 11/27/16 14:44 11/27/16 20:29 11/28/16 02:30 White Blood Count 7.3T/MM3 Red Blood Count 4.64M/MM3 Hemoglobin 14.2GM/DL Hematocrit 41.6% Mean Corpuscular Volume 89.7UM3 Mean Corpuscular Hemoglobin 30.6UUG Mean Corpuscular Hemoglobin Concent 34.1GM/DL RDW Standard Deviation 41.9FL Platelet Count 245T/MM3 Mean Platelet Volume 9.7UM3 Immature Granulocyte % (Auto) 0.1% Neutrophils (%) (Auto) 46.0% Lymphocytes (%) (Auto) 39.6% Monocytes (%) (Auto) 10.8% Eosinophils (%) (Auto) 3.0% Basophils (%) (Auto) 0.5% Absolute Immature Granulocyte (auto 0.01T/MM3 Absolute Neutrophils (auto) 3.4T/MM3 Absolute Lymphocytes (auto) 2.9T/MM3 Absolute Monocytes (auto) 0.8T/MM3 Absolute Eosinophils (auto) 0.2T/MM3 Absolute Basophils (auto) 0.0T/MM3 Prothromb Time International Ratio 1.12 Turbidity < 20 Sodium Level 146MEQ/L Potassium Level 3.4MEQ/L Chloride Level 109MEQ/L Carbon Dioxide Level 23MEQ/L Anion Gap 14MEQ/L Blood Urea Nitrogen 16.0MG/DL Creatinine 0.9MG/DL Glomerular Filtration Rate Calc 61 BUN/Creatinine Ratio 18RATIO Glucose Level 109MG/DL Calculated Osmolality 283MOSM/KG Calcium Level 9.4MG/DL Icterus Index < 2 Troponin I < 0.012ng/ml < 0.012ng/ml < 0.012ng/ml UP-Mza-H-Type Natriuretic Peptide 190PG/ML Chemistry Specimen Hemolysis < 15 < 15 < 15 Laboratory Tests Test 11/27/16 14:44 11/27/16 20:29 11/28/16 02:30 White Blood Count 7.3T/MM3 Red Blood Count 4.64M/MM3 Hemoglobin 14.2GM/DL Hematocrit 41.6% Mean Corpuscular Volume 89.7UM3 Mean Corpuscular Hemoglobin 30.6UUG Mean Corpuscular Hemoglobin Concent 34.1GM/DL RDW Standard Deviation 41.9FL Platelet Count 245T/MM3 Mean Platelet Volume 9.7UM3 Immature Granulocyte % (Auto) 0.1% Neutrophils (%) (Auto) 46.0% Lymphocytes (%) (Auto) 39.6% Monocytes (%) (Auto) 10.8% Eosinophils (%) (Auto) 3.0% Basophils (%) (Auto) 0.5% Absolute Immature Granulocyte (auto 0.01T/MM3 Absolute Neutrophils (auto) 3.4T/MM3 Absolute Lymphocytes (auto) 2.9T/MM3 Absolute Monocytes (auto) 0.8T/MM3 Absolute Eosinophils (auto) 0.2T/MM3 Absolute Basophils (auto) 0.0T/MM3 Prothromb Time International Ratio 1.12 Turbidity < 20 Sodium Level 146MEQ/L Potassium Level 3.4MEQ/L Chloride Level 109MEQ/L Carbon Dioxide Level 23MEQ/L Anion Gap 14MEQ/L Blood Urea Nitrogen 16.0MG/DL Creatinine 0.9MG/DL Glomerular Filtration Rate Calc 61 BUN/Creatinine Ratio 18RATIO Glucose Level 109MG/DL Calculated Osmolality 283MOSM/KG Calcium Level 9.4MG/DL Icterus Index < 2 Troponin I < 0.012ng/ml < 0.012ng/ml < 0.012ng/ml VH-Pyb-N-Type Natriuretic Peptide 190PG/ML Chemistry Specimen Hemolysis < 15 < 15 < 15 EKG SR, no ischemic ST changes Radiology DATE OF EXAM: 11/27/16 ORDERING DOCTOR: BLESSING FREY DO TYPE OF EXAM: CHEST 1 VIEW REASON FOR EXAM: Chest Pain Indication: ITS.REASON: Chest Pain PROCEDURE: CHEST 1 VIEW: Encounter: Initial Comparison: 07/04/2016 FINDINGS: The lungs are clear without evidence of focal abnormal airspace opacity. There is no pleural effusion or pneumothorax. There is slight tenting of the left hemidiaphragm indicating scarring. The heart size, mediastinal contours and pulmonary vascularity are within normal limits. There is no significant skeletal abnormality. Sternotomy wires are seen in midline. IMPRESSION: No acute cardiopulmonary disease. Assessment & Plan Problems: (1) Chest pain Status: Acute Assessment & Plan: Increasing frequency and duration of chest pain episodes since the end of October. Serial troponin levels are negative, EKG is with NSSTT changes. Started on Imdur on 11/19/16, Stress test yesterday. (2) CAD (coronary artery disease) Status: Chronic Qualifiers: Coronary Disease-Associated Artery/Lesion type: bypass graft [place] vs. transplanted heart: enterprise heart Associated angina: with unspecified angina Qualified Codes: I25.709 - Atherosclerosis of coronary artery bypass graft(s), unspecified, with unspecified angina pectoris Assessment & Plan: Stress test yesterday.Started on Imdur on 11/19/16 (3) Dyslipidemia Status: Chronic Assessment & Plan: PCP manages (4) Hypertension Status: Chronic Qualifiers: Hypertension type: essential hypertension Qualified Codes: I10 - Essential (primary) hypertension Assessment & Plan: stable, continue current therapy (5) Paroxysmal atrial fibrillation Status: Chronic Assessment & Plan: continue current therapy Plan/Intensity of Service Left heart catheterization today Code Status Full Code Hospital Course Summary Disclaimer The hospital course summary below is not to be considered part of the above Progress Note. JENA APPIAH MD 12/02/16 1207: Past Medical History Current Medications Home Meds Reported Medications Quetiapine Fumarate (Quetiapine Fumarate) 25 Mg Tablet, 25 MG PO HS 11/27/16 Amlodipine Besylate (Amlodipine Besylate) 5 Mg Tablet, 5 MG PO DAILY 11/27/16 Nitroglycerin (Nitroglycerin) 0.4 Mg Tab.subl, 0.4 MG PO Q5MIN Y for CHEST PAIN 07/04/16 Clopidogrel Bisulfate (Clopidogrel) 75 Mg Tablet, 75 MG PO DAILY 07/04/16 Aspirin *EC* (Aspirin EC) 325 Mg Tablet.dr, 325 MG PO DAILY 07/04/16 Ranitidine HCl (Zantac) 150 Mg Tablet, 150 MG PO BID 03/11/16 Citalopram (Celexa) 20 Mg Tablet, 20 MG PO HS 07/17/12 Discontinued Reported Medications Isosorbide Mononitrate (Isosorbide Mononitrate ER) 30 Mg Tab.er.24h, 30 MG PO DAILY 11/27/16 Allergies: Coded Allergies: Iodine and Iodide Containing Produc (Verified Allergy, Unknown, IVP DYE, ) Sulfa (Sulfonamide Antibiotics) (Verified Adverse Reaction, Unknown, NAUSEA, 11/27/16) Assessment & Plan Plan/Intensity of Service After examining the patient I agree with the above assessment. I am involved in the formulation of the patient's plan of care. SAMUEL FLORENCE APRN November 28, 2016 10:55 JENA APPIAH MD December 02, 2016 12:07
[2016-11-28] MEDS ORDERED: LIDOCAINE 1% (10mg/ml) 30ml SDV ONE (11:43)
[2016-11-28] MEDS ORDERED: HEPARIN 1,000units in NS 500ml BAG IV ONE (11:44)
[2016-11-28 12:13] LABS: BASOPHILS % (AUTO) 0.4 % (0-2); EOSINOPHILS # (AUTO) 0.1 T/MM3 (0-0.5); EOSINOPHILS % (AUTO) 1.9 % (0-4); HCT - HEMATOCRIT 41.3 % (36-46); IMMATURE GRANULOCYTE # (AUTO) 0.01 T/MM3 (0.00-0.03); IMMATURE GRANULOCYTE % (AUTO) 0.1 % (0.0-0.5); LYMPHOCYTES # (AUTO) 2.5 T/MM3 (1-4.8); LYMPHOCYTES % (AUTO) 36.9 % (23-45); MEAN CORPUSCULAR HGB 30.4 UUG (26-34); MEAN CORPUSCULAR HGB CONC(MCHC 33.9 GM/DL (31-37); MEAN CORPUSCULAR VOLUME 89.8 UM3 (80-100); MEAN PLATELET VOLUME 9.9 UM3 (9.4-12.4); MONOCYTES # (AUTO) 0.6 T/MM3 (0-0.8); MONOCYTES % (AUTO) 9.6 % (0-9.0); NEUTROPHILS #(AUTO)-ABSOLUTE 3.4 T/MM3 (1.8-7.7); NEUTROPHILS % (AUTO) 51.1 % (33-66); WBC - WHITE BLOOD COUNT 6.7 T/MM3 (4.5-11.0)
[2016-11-28 12:18] LABS: INR 1.16 (0.76-1.04); PROTHROMBIN TIME 12.6 SEC (9.31-12.49)
[2016-11-28 12:24] LABS: ANION GAP 10 MEQ/L (5-15); BUN/CREATININE RATIO 18 RATIO (6-26); CALCIUM 9.5 MG/DL (8.4-10.2); CHLORIDE 108 MEQ/L (98-107); CO2 - CARBON DIOXIDE 25 MEQ/L (22-30); CREATININE 0.9 MG/DL (0.7-1.2); GLOMERULAR FILTRATION RATE 61; GLUCOSE 97 MG/DL (65-110); SODIUM 143 MEQ/L (134-144)
[2016-11-28] MEDS ORDERED: DiphenhydrAMINE 50 MG/ML INJECTION ONE (13:06)
[2016-11-28] MEDS ORDERED: FENTANYL 100mcg/2ml INJECTION ONE (13:07)
[2016-11-28] MEDS ORDERED: MIDAZOLAM 2mg/2ml INJECTION ONE (13:07)
--- NOTE | 2016-11-28 13:14 | NUR ---
OFF UNIT PATIENT IS OFF UNIT AT THIS TIME. PATIENT LEFT VIA OR CART AND NURSING STAFF. PATIENT VITALS ARE STABLE AND PATIENT IS ON ROOM AIR.
[2016-11-28] MEDS ORDERED: SALINE FLUSH 10ml SYRINGE ONE (13:23)
[2016-11-28] MEDS ORDERED: LORAZEPAM 2 MG/ML INJECTION IV PRN (13:45)
[2016-11-28] MEDS ORDERED: METOCLOPRAMIDE 10mg/2ml INJECTION IV PRN (13:45)
[2016-11-28] MEDS ORDERED: ACETAMINOPHEN 325 MG TABLET PO PRN (13:45)
[2016-11-28] MEDS ORDERED: ATROPINE 1 MG/ML VIAL IV PRN (13:45)
[2016-11-28] MEDS ORDERED: MORPHINE SULFATE 4 MG SYRINGE IV PRN ×2 (13:45)
[2016-11-28] MEDS ORDERED: NITROGLYCERIN 0.4 MG SUBLINGUAL TABLET SL PRN (13:45)
[2016-11-28] MEDS ORDERED: BISACODYL 5 MG E.C. TABLET PO PRN (13:45)
[2016-11-28] MEDS ORDERED: MILK OF MAGNESIA 30 ML SUSP PO PRN (13:45)
[2016-11-28] MEDS ORDERED: PROMETHAZINE 25 MG INJECTION IV PRN (13:45)
[2016-11-28] MEDS ORDERED: BISACODYL 10 MG SUPPOSITORY RECTALLY PRN (13:45)
[2016-11-28] MEDS ORDERED: HYDROCODONE/APAP 5 mg/325 mg TABLET PO PRN (13:45)
[2016-11-28] MEDS ORDERED: ONDANSETRON 4mg/2ml INJECTION IV PRN (13:45)
[2016-11-28] MEDS ORDERED: MAG-AL + SIM LIQUID 30 ML UDC PO PRN (13:45)
[2016-11-28] MEDS ORDERED: LORAZEPAM 1 MG TABLET PO PRN (13:45)
--- NOTE | 2016-11-28 13:50 | NUR ---
RETURN TO UNIT RETURNED TO ROOM 124 VIA CART FROM MARKETING LIAISON. PATIENT TRANSFERRED FROM CART TO BED VIA SLIDE BOARD AND ASSIST X2 FROM NURSING STAFF. DRESSING C/D/I TO RIGHT GROIN. TISSUE SOFT. NO S/S OF BLEEDING OR HEMATOMA NOTED AT THIS TIME. STRONG BILATERAL PEDAL PULES. IVF INFUSING. O2 RA. PATIENT DENIES CHEST PAIN, SHORTNESS OF AIR OR PAIN A GROIN SITE. PATIENT CURRENTLY FLAT IN BED. FAMILY AT BEDSIDE. SIDE RAILS UP X2, CALL LIGHT WITHIN REACH, BED IN LOWEST POSITION, AND BED ALARM ACTIVATED. WILL CONTINUE TO MONITOR.
--- NOTE | 2016-11-28 14:15 | NUR ---
NOTIFICATION DR. TAINA COPE NOTIFIED OF CONSULTATION. DR. COPE INFORMED THIS RN SHE HAD ALREADY BEEN TO [facility] [place] TODAY AND WOULD NOT BE BACK UNTIL LATER TOMORROW EVENING. DR. COPE INFORMED THIS RN IF PATIENT NEEDED OUTPATIENT TREATMENT AND BEING DISMISSED TODAY TO TRY TO SETUP AN APPOINTMENT WITH [facility]. THIS RN VERBALIZED UNDERSTANDING. SAMUEL FLORENCE APRN NOTIFIED OF THE ABOVE.
--- NOTE | 2016-11-28 14:24 | NUR ---
Appliance Tester Chart reviewed by [facility] computer systems technology instructor.
--- NOTE | 2016-11-28 14:30 | NUR ---
APPOINTMENT APPOINTMENT SCHEDULED WITH [facility] FOR 12/02/16 AT 1400 WITH LEONORA MORENO. PATIENT NOTIFIED AND VERBALIZED UNDERSTANDING.
--- NOTE | 2016-11-28 15:00 | CVPROF ---
DATE OF PROCEDURE November 28, [address] Nico Salomon The patient is a pleasant 71-year-old lady with history of coronary artery disease and coronary artery bypass graft who has been having increasing chest pain and angina and was admitted with unstable angina and referred for further evaluation by cardiac catheterization and possible intervention. Informed consent was obtained after explaining the procedure and the potential risks to the patient who agreed to proceed with the procedure. PROCEDURE 1. Left heart catheterization. 2. Coronary angiography. 3. Left ventriculography. 4. Bypass angiography. 5. Selective CHAVEZ angiography. 6. Right femoral angiography to visualize the vessel for closure device. 7. Successful Mynx deployment for hemostasis. TECHNIQUE She was prepped and draped in the usual sterile techniques. 1% lidocaine was used for local anesthesia. Conscious sedation was performed using Versed and fentanyl. Using modified Seldinger technique, arterial access was obtained into the right femoral artery with placement of a 6-English arterial sheath. LEFT VENTRICULOGRAPHY Left ventriculography in single-plane SINGH shallow projection showed normal LV systolic function with ejection fraction of about 65% with no mitral regurgitation or gradient across the aortic valve. LVEDP was about 5. CORONARY ANGIOGRAPHY Left main was free of significant lesions. Left anterior descending artery had an endovascular stent which was widely patent. Proximal LAD had about 30% stenosis. Mid LAD also had 30% stenosis. Left circumflex artery had an endovascular stent which was widely patent. Remaining course of circumflex was free of significant lesions. Right coronary artery had minor irregularities but no significant lesions. CHAVEZ to LAD was occluded. A vein graft to obtuse marginal was occluded. Right femoral angiography showed patent common femoral, proximal SFA and profunda and therefore Mynx was used for hemostasis. IMPRESSION 1. Coronary artery disease as described above. However, the patient appears to be well vascularized. 2. Normal LV systolic function with ejection fraction of 65%. 3. Successful Mynx deployment for hemostasis. PLAN Medical management since the patient appears to be well vascularized. MTDD
--- NOTE | 2016-11-28 17:09 | NUR ---
ACTIVITY AMBULATES APPROXIMATELY 141 FEET IN HALLWAY WITH NURSING STAFF. TOLERATED AMBULATION WELL. CURRENTLY DENIES SHORTNESS OF AIR OR CHEST PAIN AT THIS TIME.
--- NOTE | 2016-11-28 17:30 | NUR ---
DISMISSAL DISCHARGE INSTRUCTIONS, MEDICATIONS, EDUCATION ON CHEST PAIN AND HEART CATHETERIZATION GIVEN AND DISCUSSED WITH PATIENT AND PATIENT'S DAUGHTER. DISCUSSED S/S TO REPORT AND S/S OF INFECTION. DISCUSSED ACTIVITY GUIDELINES. PATIENT AND DAUGHTER VERBALIZED UNDERSTANDING. ALL QUESTIONS AND CONCERNS ANSWERED. IVL X2 D/C, CATHETER TIPS INTACT. PATIENT INFORMED OF FOLLOW UP APPOINTMENT WITH DR. APPIAH ON 12/03 AND APPOINTMENT WITH LEONORA ROBERTS AT [facility] ON 12/02. AMBULATES TO FRONT ENTRANCE OF [facility] [place] WITH NURSING STAFF. DISMISS WITH DAUGHTER PER PRIVATE OWN VEHICLE.
--- OUTSIDE RECORDS SUMMARY | 2016-11-29 12:11 | XMS REPORT | Continuity of Care Document ---
Author Author Jorge [facility] Organization [facility] Address Unknown Phone Unavailable Support Name Relationship Address Phone STACIE ELLIS DO Caregiver [facility] [address] [facility] [address] [place] [phone] SHI BHAKTA MD Caregiver [address] [place] [address] [place] [phone] RALPH INMAN Next Of Kin [address] [place] [address] Insurance Providers Payer Name Policy Number Subscriber Name Relationship Medicare [id number] Bianka Eason 16 Self Problems Medical Problems [...] F (96.8 - 99.1) Temperature (Calculated Celsius) 36.60642 degrees C (36.0 - 37.3) Pulse Rate [...] Has specimen been collected/obtained? Y Urine Specific [place] December 31, 2013 2:10am <=1.005 L - [...] Report July 09, 2013 3:14pm REFERENCE LAB [id number] - EKG March 14, 2009 10:25am Complete [...] December 31, 2013 1:40am < 2 0-7 GE-Kpj-M-Type Natriuretic Peptide December 31, 2013 1:40am 1120 PG/ML H 0- 175 Rule in cut points: <50 years old=450; 50-75 years old=900; >75 years old=1800; When utilizing ProBNP rule-in cut points, adjustment for impaired renal function is typically not required. Urine Culture Urine, Straight Cath July 07, 2013 5:19pm Gram Stain Arm-Left Lower April 29, 2009 4:38pm Name: BIANKA EASON Unit #: [id number] : 1945 Sex: F Loc / Svc: ED DOS: 12/31/13 Signed Report #: [id number] DIAGNOSTIC IMAGING REPORT TYPE OF EXAM: CHEST [...] Encounters Encounter Location Date/Time Departed Emergency Room [facility] 02/13/14 7:12pm Departed Emergency Room [facility] 12/31/13 1:22am Discharged Recurring [facility] 12/15/13 2:30pm Recent Diagnosis
--- OUTSIDE RECORDS SUMMARY | 2016-11-29 12:11 | XMS REPORT | Continuity of Care Document ---
Author Author Jorge [facility] Organization [facility] Address Unknown Phone Unavailable Support Name Relationship Address Phone STACIE ELLIS DO Caregiver [facility] [address] [facility] [address] [place] [phone] SHI BHAKTA MD Caregiver [address] [place] [address] [place] [phone] RALPH INMAN Next Of Kin [address] [place] [address] Insurance Providers Payer Name Policy Number Subscriber Name Relationship Medicare [id number] Bianka Eason 16 Self Problems Medical Problems [...] F (96.8 - 99.1) Temperature (Calculated Celsius) 36.24921 degrees C (36.0 - 37.3) Pulse Rate [...] Has specimen been collected/obtained? Y Urine Specific [place] December 31, 2013 2:10am <=1.005 L - [...] Report July 09, 2013 3:14pm REFERENCE LAB [id number] - EKG March 14, 2009 10:25am Complete [...] December 31, 2013 1:40am < 2 0-7 GI-Rzo-L-Type Natriuretic Peptide December 31, 2013 1:40am 1120 PG/ML H 0- 175 Rule in cut points: <50 years old=450; 50-75 years old=900; >75 years old=1800; When utilizing ProBNP rule-in cut points, adjustment for impaired renal function is typically not required. Urine Culture Urine, Straight Cath July 07, 2013 5:19pm Gram Stain Arm-Left Lower April 29, 2009 4:38pm Name: BIANKA EASON Unit #: [id number] : 1945 Sex: F Loc / Svc: ED DOS: 12/31/13 Signed Report #: [id number] DIAGNOSTIC IMAGING REPORT TYPE OF EXAM: CHEST [...] [facility] 12/31/13 1:22am Registered Recurring [facility] 12/15/13 2:30pm Recent Diagnosis
--- OUTSIDE RECORDS SUMMARY | 2016-11-29 12:11 | XMS REPORT | Continuity of Care Document ---
Author Author [facility] Organization [facility] Address Unknown Phone Unavailable Support Name Relationship Address Phone JENA APPIAH MD Caregiver [address] [place] [address] [place] [address] Unavailable JENA APPIAH MD Caregiver [address] [place] [address] [place] [address] Unavailable JENA APPIAH MD Caregiver [address] [place] [address] [place] [address] Unavailable BLESSING FREY DO Caregiver [address] [place] [address] Unavailable VIOLET WILSON Next Of Kin [address] [place] [address] C Insurance Providers Guarantor Bianka Eason Address [address] [address] CP Email DENIED 11-27-16 Payer Medicare Policy Number [id number] Subscriber's Name Bianka Eason Relationship 16 Self Advance Directives Directive Response Recorded Date/Time Advanced Directives Type DPOA for Healthcare 11/27/16 2:30pm Ordered Resuscitation Status Full Code 11/27/16 3:28pm Resuscitation Documents on File No 11/27/16 4:10pm DPOA for Healthcare Only Yes 11/28/16 11:07am Living Will No 11/27/16 4:10pm Advanced Directive or Resuscitation Comments Pt would like to add someone to DPOA paperwork 11/27/16 4:10pm Advance Directive Consult Information Given 11/28/16 9:03am Problems Active Problems Medical Problem Onset Date Status Angina pectoris, variant Unknown Acute Anxiety disorder Unknown Chronic Atrial fibrillation, chronic Unknown Chronic Atypical chest pain Unknown Resolved Back pain Unknown Acute Bipolar disorder Unknown Chronic CAD (coronary artery disease) Unknown Chronic Coronary artery disease Unknown Acute Dyslipidemia Unknown [...] Acute Past Problems Medical Problem Onset Date Chest pain Unknown Typical angina Unknown Medications Current Home Medications Medication Dose Units Route Directions Days Qty Instructions Start Date Amlodipine Besylate 5 Mg Tablet 5 Mg Oral Daily 11/27/16 Aspirin (Aspirin Ec) 325 Mg Tablet.dr 325 Mg Oral Daily 07/04/16 Citalopram Hydrobromide (Celexa) 20 Mg Tablet 20 Mg Oral Bedtime 07/17/12 Clopidogrel Bisulfate (Clopidogrel) 75 Mg Tablet 75 Mg Oral Daily 07/04/16 Nitroglycerin 0.4 Mg Tab.subl 0.4 Mg Oral Every 5 Minutes X 3 as needed for Chest Pain 07/04/16 Quetiapine Fumarate 25 Mg Tablet 25 Mg Oral Bedtime 11/27/16 Ranitidine Hcl (Zantac) 150 Mg Tablet 150 [...] 07/05/16 Discontinued Isosorbide Mononitrate (Isosorbide Mononitrate Er) 30 Mg Tab.er.24h, 30 Mg Oral Daily 11/27/16 Discontinued Isosorbide Mononitrate (Isosorbide Mononitrate Er) 60 [...] Date/Time Onset Date Status Reason for Hospitalization heart cath 11/28/2016 4:35pm Not Applicable Not Applicable Chewing Tobacco Status No 12/31/2013 1:22am Not Applicable Not Applicable Hx Substance Use No 11/27/2016 3:00pm Not Applicable Not Applicable Hx Alcohol Use No 11/27/2016 3:00pm Not Applicable Not Applicable Has the pt used tobacco in the last 12 months No 11/27/2016 4:14pm Not Applicable Not Applicable Tobacco Usage none 12/31/2013 2:34am Not Applicable Not Applicable Query Response Start Date Stop Date Smoking Status Unknown if ever smoked Hospital Discharge Instructions Instructions: Care Instructions: I was in the hospital because (patient own words): "chest pain" Discharge Diet: Resume heart healthy diet Discharge Activity: Limit activity for 2 days. No lifting more than 10 pounds, no pushing or pulling for 1 week. Follow Up Appointments: Follow up with Dr. Appiah on: 12/03/16 at 8:30 Expect a phone call from Cardiac Rehab to schedule an appointment for you. If you have any questions, please contact Card[facility] Rehab at: [phone]. Pending Lab / Results: No Pending Lab Patient Instructions: Do not drive, operate machinery or drink alcohol for 2 days. Recommend outpatient visit to psychiatrist through [facility] for help with anxiety. Expected Signs/Symptoms: Bruising and tenderness at the site. Notify Physician If: Site is bleeding, abnormal drainage, increased pain or fever of 101.5 or more. During Business Hours:: Call Dr. Appiah's office at [phone]. After Business Hours:: Please call [phone] and have the mottler operator page the physician. Pain Management/Treatment: Over the counter pain medication if needed. Wound/Incision Care: Keep site clean and dry. No tub baths or swimming for 1 week. You may shower. Condition at time of discharge: Good Plan of Care Discharge Date 11/28/16 5:30pm Disposition 01 DISCHARGED HOME, SELF-CARE Instructions/Education Provided [facility] Heart Cath Chest Pain (ED) Prescriptions See Medication Section Additional Instructions/Education FOLLOW UP WITH LEONORA MORENO AT [facility] ([address] [address] DRIVE, [address]) ON 12/02/16. PLEASE CHECKIN AT 2:00PM ON 12/02/16. BRING PHOTO ID AND INSURANCE CARD. IF NO INSURANCE, PLEASE BRING PROOF OF INCOME AND $25 COPAY. Care Plan and Goals See Discharge Instructions Section Functional Status Query Response Date Recorded Mobility Status Ambulatory November 27, 2016 4:24pm Assistive Devices None November 27, 2016 4:24pm Activity Limitations Pain November 27, 2016 4:24pm Feeding Ability Independent November 27, 2016 4:24pm Toileting Ability Independent November 27, 2016 4:24pm Grooming Ability Independent November 27, 2016 4:24pm Dressing Ability Independent November 27, 2016 4:24pm Driving Ability Independent November 27, 2016 4:24pm Housework Ability Independent November 27, 2016 4:24pm Meal Preparation Ability Independent November 27, 2016 4:24pm Stair Climbing Ability Independent November 27, 2016 4:24pm Ability to complete ADL's impeded by No change November 27, 2016 4:24pm Preferred Method of Learning Reading Listening November 27, 2016 4:24pm Allergies, Adverse Reactions, Alerts Allergen Type Severity Reaction Status Last Updated Iodine and Iodide Containing Produc Allergy Unknown IVP DYE Active Sulfa (Sulfonamide Antibiotics) Adverse Reaction Unknown NAUSEA Active 05/06 Immunizations Query Response on File Recorded Date/Time Hx Influenza Vaccination Y 04/201611/27/16 4:14pm Hx Pneumococcal Vaccination Y fall 201311/27/16 4:14pm Hx Tetanus, Diptheria, Pertussis No 03/29/15 12:14am Hx Influenza Vaccination Y 04/201611/27/16 4:14pm Hx Tetanus Diptheria Y 04/29/09 03/29/15 12:14am Hx Tetanus, Diptheria, Pertussis No 03/29/15 12:14am Hx Tetanus Toxoid Vaccination No 03/21/09 9:11pm Influenza Vaccine Hx fall 201511/27/16 4:18pm Vital Signs Acute Vital Signs Vital Response Date/Time Temperature (Fahrenheit) 98.4 deg F (96.8 - 99.1) 11/28/2016 12:32am Temperature (Calculated Celsius) 36.67069 degrees C (36.0 - 37.3) 11/28/2016 12:32am Pulse Rate (adult) 65 bpm (60 - 100) 11/28/2016 4:58pm Respiratory Rate 18 breaths/min (10 - 20) 11/28/2016 4:58pm O2 Sat by Pulse Oximetry 97 % (90 - 100) 11/28/2016 4:58pm Oxygen Delivery Method Room Air 11/28/2016 4:58pm Oxygen Delivery Method Nasal Cannula 11/28/2016 8:22am Oxygen Flow Rate 2.00 L/min 11/28/2016 8:22am Blood Pressure 144/65 mm Hg 11/28/2016 4:58pm Blood Pressure Source Automatic Cuff 11/28/2016 4:58pm Height (Feet) 5 feet 11/28/2016 11:07am Height (Inches) 3.00 inches 11/28/2016 11:07am Weight (Kilograms) 82.100 kg 11/28/2016 8:30am Body Mass Index (BMI) 32.2 11/27/2016 4:09pm Results Laboratory Results Test Name Result Units Flags Reference Collection Date/Time Result Date/ Time Comments White Blood Count 6.7 T/MM3 4.5-11.0 11/28/2016 12:06pm 11/28/2016 12: 13pm Red Blood Count 4.60 M/MM3 4.00-5.20 11/28/2016 12:06pm 11/28/2016 12: 13pm Hemoglobin 14.0 GM/DL 12-16 11/28/2016 12:06pm 11/28/2016 12:13pm Hematocrit 41.3 % 36-46 11/28/2016 12:0611/28/2016 12:13pm Mean Corpuscular Volume 89.8 UM3 80-100 11/28/2016 12:06pm 11/28/2016 12:13pm Mean Corpuscular Hemoglobin 30.4 UUG 26-34 11/28/2016 12:062016 12:13pm Mean Corpuscular Hemoglobin Concent 33.9 GM/DL 31-37 11/28/2016 12:06pm 11/28/2016 12:13pm RDW Standard Deviation 40.9 FL 36.9-50.2 11/28/2016 12:0611/28/2016 12:13pm Platelet Count 239 T/MM3 130-400 11/28/2016 12:06pm 11/28/2016 12:13pm Mean Platelet Volume 9.9 UM3 9.4-12.4 11/28/2016 12:06pm 11/28/2016 12: 13pm Neutrophils (%) (Auto) 51.1 % 33-66 11/28/2016 12:11/28/2016 12: 13pm Lymphocytes (%) (Auto) 36.9 % 23-45 11/28/2016 12:pm 11/28/2016 12: 13pm Monocytes (%) (Auto) 9.6 % H 0-9.0 11/28/2016 12:pm 11/28/2016 12: 13pm Eosinophils (%) (Auto) 1.9 % 0-4 11/28/2016 12:pm 11/28/2016 12:13pm Basophils (%) (Auto) 0.4 % 0-2 11/28/2016 12:11/28/2016 12:13pm Immature Granulocyte % (Auto) 0.1 % 0.0-0.5 11/28/2016 12:2016 12:13pm Absolute Neutrophils (auto) 3.4 T/MM3 1.8-7.7 11/28/2016 12:2016 12:13pm Absolute Lymphocytes (auto) 2.5 T/MM3 1-4.8 11/28/2016 12:pm 2016 12:13pm Absolute Monocytes (auto) 0.6 T/MM3 0-0.8 11/28/2016 12:06pm 2016 12:13pm Absolute Eosinophils (auto) 0.1 T/MM3 0-0.5 11/28/2016 12:06pm 2016 12:13pm Absolute Basophils (auto) 0.0 T/MM3 0-0.2 11/28/2016 12:06pm 2016 12:13pm Absolute Immature Granulocyte (auto 0.01 T/MM3 0.00-0.03 11/28/2016 12: 06pm 11/28/2016 12:13pm Prothromb Time International Ratio 1.16 H 0.76-1.04 11/28/2016 12:06pm 11/28/2016 12:18pm THERAPUTIC RANGE=2.00-3.00 FOR ANTI-THROMBOSIS THERAPUTIC RANGE=2.50-3.50 FOR IMPLANTED VALVE Icterus Index < 2 0-7 11/28/2016 12:06pm 11/28/2016 12:24pm Chemistry Specimen Hemolysis < 15 0-25 11/28/2016 12:11/28/2016 12:24pm 0-25: Specimen Exhibited No Hemolysis. Turbidity < 20 0-20 11/28/2016 12:06pm 11/28/2016 12:24pm Sodium Level 143 MEQ/L 134-144 11/28/2016 12:06pm 11/28/2016 12:24pm Potassium Level 4.0 MEQ/L 3.6-5 11/28/2016 12:11/28/2016 12:24pm Chloride Level 108 MEQ/L H 98-107 11/28/2016 12:06pm 11/28/2016 12:24pm Carbon Dioxide Level 25 MEQ/L 22-30 11/28/2016 12:11/28/2016 12: 24pm Anion Gap 10 MEQ/L 5-15 11/28/2016 12:0611/28/2016 12:24pm Blood Urea Nitrogen 16.0 MG/DL 7-17 11/28/2016 12:11/28/2016 12: 24pm Creatinine 0.9 MG/DL 0.7-1.2 11/28/2016 12:06pm 11/28/2016 12:24pm BUN/Creatinine Ratio 18 RATIO 6-26 11/28/2016 12:11/28/2016 12: 24pm Glomerular Filtration Rate Calc 61 11/28/2016 12:06pm 11/28/2016 12 :24pm Glucose Level 97 MG/DL 65-110 11/28/2016 12:06pm 11/28/2016 12:24pm Calculated Osmolality 276 MOSM/KG 261-280 11/28/2016 12:06pm 2016 12:24pm Calcium Level 9.5 MG/DL 8.4-10.2 11/28/2016 12:06pm 11/28/2016 12:24pm Troponin I < 0.012 ng/ml 0-0.12 11/28/2016 2:30am 11/28/2016 3:20am Troponin values with a difference of 55% increase from orginal troponin value represent a true biological DELTA value. (%increase Calc=Orginal Troponin value, divided by subsequent Troponin value, multiplied by 100) WB-Daf-H-Type Natriuretic Peptide 190 PG/ML H 0-175 11/27/2016 2:44pm 3:14pm Rule in cut points: <50 years old=450; 50-75 years old=900; >75 years old=1800; When utilizing ProBNP rule-in cut points, adjustment for impaired renal function is typically not required. Name: BIANKA EASON Unit #: [id number] : 1945 Sex: F Admit Date: Loc / Svc: ED Discharge Date: DIAGNOSTIC IMAGING REPORT Report #: [id number] [facility] RODRIGUEZ Patel Indication: ITS.REASON: Chest Pain PROCEDURE: CHEST 1 VIEW: Encounter: Initial Comparison: 07/04/2016 FINDINGS: The lungs are clear without evidence of focal abnormal airspace opacity. There is no pleural effusion or pneumothorax. There is slight tenting of the left hemidiaphragm indicating scarring. The heart size, mediastinal contours and pulmonary vascularity are within normal limits. There is no significant skeletal abnormality. Sternotomy wires are seen in midline. IMPRESSION: No acute cardiopulmonary disease. . Procedures No known history of procedures. Encounters Encounter Location Arrival/Admit Date Discharge/Depart Date Attending Provider Discharged Inpatient (obs) [facility] 11/27/16 3:25pm 11/28/16 5: 30pm JENA APPIAH MD Registered Recurring [facility] 11/18/16 12:30pm GREYSON OROURKE MD
--- OUTSIDE RECORDS SUMMARY | 2016-11-29 12:11 | XMS REPORT | Continuity of Care Document ---
Author Author [facility] Organization [facility] Address Unknown Phone Unavailable Support Name Relationship Address Phone BLESSING FREY DO Caregiver [facility] [address] [place] [address] STACIE ELLIS DO Caregiver [facility] [address] [facility] [address] [place] [phone] RALPH INMAN Next Of Kin [address] [place] [id number] Insurance Providers Payer Name Policy Number Subscriber Name Relationship Medicare [id number] Bianka Eason 16 Self Problems Medical Problems [...] F (96.8 - 99.1) Temperature (Calculated Celsius) 36.28602 degrees C (36.0 - 37.3) Pulse Rate [...] Has specimen been collected/obtained? Y Urine Specific [place] December 31, 2013 2:10am <=1.005 L - [...] Report July 09, 2013 3:14pm REFERENCE LAB [id number] - EKG March 14, 2009 10:25am Complete [...] December 31, 2013 1:40am < 2 0-7 EX-Fly-I-Type Natriuretic Peptide December 31, 2013 1:40am 1120 [...] Encounters Encounter Location Date/Time Departed Emergency Room [facility] 12/31/13 1:22am Registered Recurring [facility] 12/15/13 2:30pm Recent Diagnosis
--- OUTSIDE RECORDS SUMMARY | 2016-11-29 12:12 | XMS REPORT | Continuity of Care Document ---
Author Author [facility] Organization [facility] Address Unknown Phone Unavailable Support Name Relationship Address Phone TYRONE APPIAH MD Caregiver [facility] [address] [place] [address] [address] [place] [address] STACIE BENOIT MD Caregiver [facility] [address] [address] Unavailable STACIE ELLIS DO Caregiver [facility] MED[facility] [address] [place] [address] [address] [place], [place] [phone] GREYSON JOHN Next Of Kin [address] [facility] [address] [place], [place] [id number] Insurance Providers Payer Name Policy Number Subscriber Name Relationship Medicare [id number] Bianka Eason 16 Self Advance Directives Directive [...] weeks. We will refer you to an business applications developer for further evaluation and possible ablation of [...] Disposition 01 DISCHARGED HOME, SELF-CARE Instructions/Education Provided [facility] Heart Cath DI for [...] F (96.8 - 99.1) Temperature (Calculated Celsius) 36.46588 degrees C (36.0 - 37.3) Pulse Rate (adult) 56 bpm (60 - 100) Respiratory Rate 12 breaths/min (10 - 20) O2 Sat by Pulse Oximetry 96 % (90 - 100) Oxygen Delivery Method Room Air Blood Pressure 165/81 mm Hg Blood Pressure Source Automatic Cuff Height 0 ft 3 in Weight 188 lb Body Mass Index 73167.0 kg/m^2 Results Test Source Date Result Interp. [...] Report July 09, 2013 3:14pm REFERENCE LAB [id number] - Lipase August 28, 2014 10:02am 152 [...] 29, 2014 4:25am 13.1 % H 0-9.0 FV-Xfa-L-Type Natriuretic Peptide August 30, 2014 4:29am 791 [...] Has specimen been collected/obtained? Y Urine Specific [place] August 30, 2014 11:35am <=1.005 L - [...] 2009 4:38pm Name: BIANKA EASON Unit #: [id number] : 1945 Sex: F DISCHARGE SUMMARY Admit Date: 08/30/14 Report #: [id number] NAVEEN HOWARD Shelley 08/31/14 1217: General Date [...] We will send her to see an business applications developer in the near future for possible ablation. [...] Meds Active Scripts Diphenhydramine HCl (Benadryl)25 Mg Tpcirvo09 Mg PO Q4-6H PRN (ITCHING) 14 Days Prov:NAVEEN HOWARD P.A. 08/31/14 Ranitidine HCl (Zantac)150 Mg Jrihhv831 Mg PO DAILY #30 TAB Ref 3 Prov:NAVEEN HOWARD P.A. 08/31/14 Losartan Potassium (Cozaar)50 Mg Xjynuu79 Mg PO DAILY@2100 #30 TAB Ref 3 Prov:NAVEEN HOWARD P.A. 08/31/14 Clopidogrel Bisulfate (Plavix)75 Mg Dmnycn38 Mg PO DAILY #30 TAB Ref 3 Prov:NAVEEN HOWARD P.A. 08/31/14 Aspirin (Ecotrin)325 Mg Wsyqsk002 Mg PO DAILY 30 Days Ref 11 Prov:NAVEEN HOWARD P.A. 08/31/14 Reported Medications Metoprolol Tartrate 25 Mg Shezkf96 Mg PO BIDWM Take 1 tab, by mouth, two time a day with meals. 08/28/14 Atorvastatin Calcium 40 Mg Gdupes58 Mg PO HS 07/15/13 Buspirone Hcl 10 Mg Drewsl59 Mg PO BID/E 06/29/13 Citalopram (Celexa)20 Mg [...] PO DAILY 08/28/14 Flecainide Acetate 50 Mg Mrxnkd83 Mg PO BID 07/15/13 Aspirin (Aspir 81)81 Mg Tablet.dr81 Mg PO DAILY 07/15/13 Warfarin Sodium (Coumadin)2.5 Mg Tablet 02/13/14 Lisinopril 2.5 Mg Tablet2.5 Mg PO DAILY 07/15/13 Discharge Disposition Stable to home in good condition. Followup: Followup with Dr. Appiah in the next one to 2 weeks. She will call for this appointment. We will refer her to business applications developer including Dr. Ann or Dr. Torres in [...] 16:46 DC 08/29/14 07:51 Acetaminophen/ Hydrocodone Bitart ([place] 5) 1-2 TABLETS Q5H PRN PO PAIN [...] 08/30/14 19:00 Diphenhydramine HCl (Benadryl) 50 mg GROUP DIRECTOR EXPERIENCE ONCE IV 08/29/14 13:00 08/29/14 13:01 DC [...] 19:28 Methylprednisolone Sodium Succinate (Solu-Medrol) 125 mg GROUP DIRECTOR EXPERIENCE ONCE IV 08/29/14 13:00 08/29/14 13:01 DC [...] Chloride (NS) 1,000 ml @ 75 mls/hr [id number] IV 08/29/14 09:00 08/29/14 16:47 DC 08/29/14 [...] Meds Active Scripts Diphenhydramine HCl (Benadryl)25 Mg Rvdrklr69 Mg PO Q4-6H PRN (ITCHING) 14 Days Prov:NAVEEN HOWARD P.A. 08/31/14 Ranitidine HCl (Zantac)150 Mg Fecrcm862 Mg PO DAILY #30 TAB Ref 3 Prov:NAVEEN HOWARD Howard P.A. 08/31/14 Losartan Potassium (Cozaar)50 Mg Lkswtr43 Mg PO DAILY@2100 #30 TAB Ref 3 Prov:NAVEEN HOWARD Howard P.A. 08/31/14 Clopidogrel Bisulfate (Plavix)75 Mg Nrshel21 Mg PO DAILY #30 TAB Ref 3 Prov:NAVEEN HOWARD P.A. 08/31/14 Aspirin (Ecotrin)325 Mg Uvxvdh884 Mg PO DAILY 30 Days Ref 11 Prov:NAVEEN HOWARD P.A. 08/31/14 Reported Medications Metoprolol Tartrate 25 Mg Khvjqt86 Mg PO BIDWM Take 1 tab, by mouth, two time a day with meals. 08/28/14 Atorvastatin Calcium 40 Mg Llkefo59 Mg PO HS 07/15/13 Buspirone Hcl 10 Mg Dayryb49 Mg PO BID/E 06/29/13 Citalopram (Celexa)20 Mg [...] PO DAILY 08/28/14 Flecainide Acetate 50 Mg Ksbbqa13 Mg PO BID 07/15/13 Aspirin (Aspir 81)81 [...] procedures. Encounters Encounter Location Date/Time Discharged Inpatient [facility] 08/30/14 10:57am Registered Clinic [facility] 08/29/14 6:00am Recent Diagnosis Angina pectoris, variant Atypical chest pain CAD (coronary artery disease) Hypertension Paroxysmal atrial fibrillation Dyslipidemia Shortness of breath Leukocytosis
--- OUTSIDE RECORDS SUMMARY | 2016-11-29 12:12 | XMS REPORT | Continuity of Care Document ---
Author Author [facility] Organization [facility] Address Unknown Phone Unavailable Support Name Relationship Address Phone TYRONE APPIAH MD Caregiver [facility] [address] [place] [address] [address] [place] [address] STACIE BENOIT MD Caregiver [facility] [address] [facility] [place] [address] Unavailable STACIE ELLIS DO Caregiver [facility] [address] [place] [address] [address] [place], [place] [phone] GREYSON JOHN Next Of Kin [address] [place] [address] [place], [place] [id number] Insurance Providers Payer Name Policy Number Subscriber Name Relationship Medicare [id number] Bianka Eason 16 Self Advance Directives Directive [...] weeks. We will refer you to an mechanical integrity specialist for further evaluation and possible ablation of [...] Disposition 01 DISCHARGED HOME, SELF-CARE Instructions/Education Provided [facility] Heart Cath DI for Atypical Chest Pain [...] F (96.8 - 99.1) Temperature (Calculated Celsius) 36.31081 degrees C (36.0 - 37.3) Pulse Rate (adult) 56 bpm (60 - 100) Respiratory Rate 12 breaths/min (10 - 20) O2 Sat by Pulse Oximetry 96 % (90 - 100) Oxygen Delivery Method Room Air Blood Pressure 165/81 mm Hg Blood Pressure Source Automatic Cuff Height 0 ft 3 in Weight 188 lb Body Mass Index 16237.0 kg/m^2 Results Test Source Date Result Interp. [...] Report July 09, 2013 3:14pm REFERENCE LAB [id number] - Lipase August 28, 2014 10:02am 152 [...] 29, 2014 4:25am 13.1 % H 0-9.0 CK-Zar-Q-Type Natriuretic Peptide August 30, 2014 4:29am 791 [...] Has specimen been collected/obtained? Y Urine Specific [place] August 30, 2014 11:35am <=1.005 L - [...] 2009 4:38pm Name: BIANKA EASON Unit #: [id number] : 1945 Sex: F DISCHARGE SUMMARY Admit Date: 08/30/14 Report #: [id number] NAVEEN HOWARD 08/31/14 1217: General Date Date [...] We will send her to see an mechanical integrity specialist in the near future for possible ablation. [...] Meds Active Scripts Diphenhydramine HCl (Benadryl)25 Mg Yhlgkvc70 Mg PO Q4-6H PRN (ITCHING) 14 Days Prov:NAVEEN HOWARD P.A. 08/31/14 Ranitidine HCl (Zantac)150 Mg Mywoez704 Mg PO DAILY #30 TAB Ref 3 Prov:NAVEEN HOWARD P.A. 08/31/14 Losartan Potassium (Cozaar)50 Mg Cdlrih35 Mg PO DAILY@2100 #30 TAB Ref 3 Prov:NAVEEN HOWARD P.A. 08/31/14 Clopidogrel Bisulfate (Plavix)75 Mg Onkmsu05 Mg PO DAILY #30 TAB Ref 3 Prov:NAVEEN HOWARD P.A. 08/31/14 Aspirin (Ecotrin)325 Mg Cisogs000 Mg PO DAILY 30 Days Ref 11 Prov:NAVEEN HOWARD P.A. 08/31/14 Reported Medications Metoprolol Tartrate 25 Mg Dedfnm66 Mg PO BIDWM Take 1 tab, by mouth, two time a day with meals. 08/28/14 Atorvastatin Calcium 40 Mg Tnqscx83 Mg PO HS 07/15/13 Buspirone Hcl 10 Mg Ryaotg10 Mg PO BID/E 06/29/13 Citalopram (Celexa)20 Mg [...] PO DAILY 08/28/14 Flecainide Acetate 50 Mg Pbjyzl45 Mg PO BID 07/15/13 Aspirin (Aspir 81)81 Mg Tablet.dr81 Mg PO DAILY 07/15/13 Warfarin Sodium (Coumadin)2.5 Mg Tablet 02/13/14 Lisinopril 2.5 Mg Tablet2.5 Mg PO DAILY 07/15/13 Discharge Disposition Stable to home in good condition. Followup: Followup with Dr. Appiah in the next one to 2 weeks. She will call for this appointment. We will refer her to mechanical integrity specialist including Dr. Ann or Dr. Torres in [...] 16:46 DC 08/29/14 07:51 Acetaminophen/ Hydrocodone Bitart ([place] 5) 1-2 TABLETS Q5H PRN PO PAIN [...] 08/30/14 19:00 Diphenhydramine HCl (Benadryl) 50 mg COMPRESSOR SERVICE TECHNICIAN ONCE IV 08/29/14 13:00 08/29/14 13:01 DC [...] 19:28 Methylprednisolone Sodium Succinate (Solu-Medrol) 125 mg COMPRESSOR SERVICE TECHNICIAN ONCE IV 08/29/14 13:00 08/29/14 13:01 DC [...] Chloride (NS) 1,000 ml @ 75 mls/hr [id number] IV 08/29/14 09:00 08/29/14 16:47 DC 08/29/14 [...] Meds Active Scripts Diphenhydramine HCl (Benadryl)25 Mg Cujaxan31 Mg PO Q4-6H PRN (ITCHING) 14 Days Prov:GABRIELA HOWARDDRAKE Lawrence P.A. 08/31/14 Ranitidine HCl (Zantac)150 Mg Fgyqwa614 Mg PO DAILY #30 TAB Ref 3 Prov:NAVEEN HOWARD Howard P.A. 08/31/14 Losartan Potassium (Cozaar)50 Mg Ijyvfp52 Mg PO DAILY@2100 #30 TAB Ref 3 Prov:ANITANAVEEN Lawrence P.A. 08/31/14 Clopidogrel Bisulfate (Plavix)75 Mg Kattgs69 Mg PO DAILY #30 TAB Ref 3 Prov:GABRIELA HOWARDDRAKE Lawrence P.A. 08/31/14 Aspirin (Ecotrin)325 Mg Hrxcbn033 Mg PO DAILY 30 Days Ref 11 Prov:GABRIELA HOWARDDRAKE Lawrence P.A. 08/31/14 Reported Medications Metoprolol Tartrate 25 Mg Egbvru26 Mg PO BIDWM Take 1 tab, by mouth, two time a day with meals. 08/28/14 Atorvastatin Calcium 40 Mg Fnxddv27 Mg PO HS 07/15/13 Buspirone Hcl 10 Mg Wxuifd46 Mg PO BID/E 06/29/13 Citalopram (Celexa)20 Mg [...] PO DAILY 08/28/14 Flecainide Acetate 50 Mg Uaioqp74 Mg PO BID 07/15/13 Aspirin (Aspir 81)81 [...] procedures. Encounters Encounter Location Date/Time Discharged Inpatient [facility] 08/30/14 10:57am Recent Diagnosis Angina pectoris, variant Atypical chest pain CAD (coronary artery disease) Hypertension Paroxysmal atrial fibrillation Dyslipidemia Shortness of breath Leukocytosis
--- OUTSIDE RECORDS SUMMARY | 2016-11-29 12:12 | XMS REPORT | Continuity of Care Document ---
Author Author [facility] Organization [facility] Address Unknown Phone Unavailable Allergies [...] 06/29/2013 Tyrone Holland MD Final [phone] COR -[place] VESSEL 06/29/2013 Tyrone Holland MD Final [phone] [...] Status Pt. Type Provider Facility Loc./Unit Complaint [id number] 07/13/2013 00:42:00 2012 13:26:00 DIS Outpatient Kurt Meng MD [address] [id number] 06/29/2013 15:35:00 2012 18:15:00 DIS Inpatient Tyrone Holland MD [address]
--- NOTE | 2016-11-29 13:16 | DSPDOC ---
SAMUEL FLORENCE TYPING OFFICE WORKER 11/29/16 1315: General Date Date DATE: 11/29/16 TIME: 13:10 Attending Physician Tyrone Appiah MD Admitting Physician Tyrone Appiah MD Consulting Physician Rebecca Huang MD Admitting Diagnosis 1. Chest pain Discharge Diagnosis atypical chest pain Procedures DATE OF PROCEDURE November 28, [address] Nico Salomon The patient is a pleasant 71-year-old lady with history of coronary artery disease and coronary artery bypass graft who has been having increasing chest pain and angina and was admitted with unstable angina and referred for further evaluation by cardiac catheterization and possible intervention. Informed consent was obtained after explaining the procedure and the potential risks to the patient who agreed to proceed with the procedure. PROCEDURE 1. Left heart catheterization. 2. Coronary angiography. 3. Left ventriculography. 4. Bypass angiography. 5. Selective CHAVEZ angiography. 6. Right femoral angiography to visualize the vessel for closure device. 7. Successful Mynx deployment for hemostasis. TECHNIQUE She was prepped and draped in the usual sterile techniques. 1% lidocaine was used for local anesthesia. Conscious sedation was performed using Versed and fentanyl. Using modified Seldinger technique, arterial access was obtained into the right femoral artery with placement of a 6-Tajik arterial sheath. LEFT VENTRICULOGRAPHY Left ventriculography in single-plane SINGH shallow projection showed normal LV systolic function with ejection fraction of about 65% with no mitral regurgitation or gradient across the aortic valve. LVEDP was about 5. CORONARY ANGIOGRAPHY Left main was free of significant lesions. Left anterior descending artery had an endovascular stent which was widely patent. Proximal LAD had about 30% stenosis. Mid LAD also had 30% stenosis. Left circumflex artery had an endovascular stent which was widely patent. Remaining course of circumflex was free of significant lesions. Right coronary artery had minor irregularities but no significant lesions. CHAVEZ to LAD was occluded. A vein graft to obtuse marginal was occluded. Right femoral angiography showed patent common femoral, proximal SFA and profunda and therefore Mynx was used for hemostasis. IMPRESSION 1. Coronary artery disease as described above. However, the patient appears to be well vascularized. 2. Normal LV systolic function with ejection fraction of 65%. 3. Successful Mynx deployment for hemostasis. PLAN Medical management since the patient appears to be well vascularized. Laboratory Laboratory Tests Test 11/27/16 14:44 11/27/16 20:29 11/28/16 02:30 11/28/16 12:06 White Blood Count 7.3T/MM3 6.7T/MM3 Red Blood Count 4.64M/MM3 4.60M/MM3 Hemoglobin 14.2GM/DL 14.0GM/DL Hematocrit 41.6% 41.3% Mean Corpuscular Volume 89.7UM3 89.8UM3 Mean Corpuscular Hemoglobin 30.6UUG 30.4UUG Mean Corpuscular Hemoglobin Concent 34.1GM/DL 33.9GM/DL RDW Standard Deviation 41.9FL 40.9FL Platelet Count 245T/MM3 239T/MM3 Mean Platelet Volume 9.7UM3 9.9UM3 Immature Granulocyte % (Auto) 0.1% 0.1% Neutrophils (%) (Auto) 46.0% 51.1% Lymphocytes (%) (Auto) 39.6% 36.9% Monocytes (%) (Auto) 10.8% 9.6% Eosinophils (%) (Auto) 3.0% 1.9% Basophils (%) (Auto) 0.5% 0.4% Absolute Immature Granulocyte (auto 0.01T/MM3 0.01T/MM3 Absolute Neutrophils (auto) 3.4T/MM3 3.4T/MM3 Absolute Lymphocytes (auto) 2.9T/MM3 2.5T/MM3 Absolute Monocytes (auto) 0.8T/MM3 0.6T/MM3 Absolute Eosinophils (auto) 0.2T/MM3 0.1T/MM3 Absolute Basophils (auto) 0.0T/MM3 0.0T/MM3 Prothromb Time International Ratio 1.12 1.16 Turbidity < 20 < 20 Sodium Level 146MEQ/L 143MEQ/L Potassium Level 3.4MEQ/L 4.0MEQ/L Chloride Level 109MEQ/L 108MEQ/L Carbon Dioxide Level 23MEQ/L 25MEQ/L Anion Gap 14MEQ/L 10MEQ/L Blood Urea Nitrogen 16.0MG/DL 16.0MG/DL Creatinine 0.9MG/DL 0.9MG/DL Glomerular Filtration Rate Calc 61 61 BUN/Creatinine Ratio 18RATIO 18RATIO Glucose Level 109MG/DL 97MG/DL Calculated Osmolality 283MOSM/KG 276MOSM/KG Calcium Level 9.4MG/DL 9.5MG/DL Icterus Index < 2 < 2 Troponin I < 0.012ng/ml < 0.012ng/ml < 0.012ng/ml JY-Amk-O-Type Natriuretic Peptide 190PG/ML Chemistry Specimen Hemolysis < 15 < 15 < 15 < 15 Laboratory Tests Test 11/28/16 02:30 11/28/16 12:06 Troponin I < 0.012ng/ml (0-0.12) Chemistry Specimen Hemolysis < 15 (0-25) < 15 (0-25) White Blood Count 6.7T/MM3 (4.5-11.0) Red Blood Count 4.60M/MM3 (4.00-5.20) Hemoglobin 14.0GM/DL (12-16) Hematocrit 41.3% (36-46) Mean Corpuscular Volume 89.8UM3 (80-100) Mean Corpuscular Hemoglobin 30.4UUG (26-34) Mean Corpuscular Hemoglobin Concent 33.9GM/DL (31-37) RDW Standard Deviation 40.9FL (36.9-50.2) Platelet Count 239T/MM3 (130-400) Mean Platelet Volume 9.9UM3 (9.4-12.4) Immature Granulocyte % (Auto) 0.1% (0.0-0.5) Neutrophils (%) (Auto) 51.1% (33-66) Lymphocytes (%) (Auto) 36.9% (23-45) Monocytes (%) (Auto) 9.6% (0-9.0) Eosinophils (%) (Auto) 1.9% (0-4) Basophils (%) (Auto) 0.4% (0-2) Absolute Immature Granulocyte (auto 0.01T/MM3 (0.00-0.03) Absolute Neutrophils (auto) 3.4T/MM3 (1.8-7.7) Absolute Lymphocytes (auto) 2.5T/MM3 (1-4.8) Absolute Monocytes (auto) 0.6T/MM3 (0-0.8) Absolute Eosinophils (auto) 0.1T/MM3 (0-0.5) Absolute Basophils (auto) 0.0T/MM3 (0-0.2) Prothromb Time International Ratio 1.16 (0.76-1.04) Turbidity < 20 (0-20) Sodium Level 143MEQ/L (134-144) Potassium Level 4.0MEQ/L (3.6-5) Chloride Level 108MEQ/L (98-107) Carbon Dioxide Level 25MEQ/L (22-30) Anion Gap 10MEQ/L (5-15) Blood Urea Nitrogen 16.0MG/DL (7-17) Creatinine 0.9MG/DL (0.7-1.2) Glomerular Filtration Rate Calc 61 BUN/Creatinine Ratio 18RATIO (6-26) Glucose Level 97MG/DL (65-110) Calculated Osmolality 276MOSM/KG (261-280) Calcium Level 9.5MG/DL (8.4-10.2) Icterus Index < 2 (0-7) Radiology DATE OF EXAM: 11/27/16 ORDERING DOCTOR: BLESSING FREY DO TYPE OF EXAM: CHEST 1 VIEW REASON FOR EXAM: Chest Pain Indication: ITS.REASON: Chest Pain PROCEDURE: CHEST 1 VIEW: Encounter: Initial Comparison: 07/04/2016 FINDINGS: The lungs are clear without evidence of focal abnormal airspace opacity. There is no pleural effusion or pneumothorax. There is slight tenting of the left hemidiaphragm indicating scarring. The heart size, mediastinal contours and pulmonary vascularity are within normal limits. There is no significant skeletal abnormality. Sternotomy wires are seen in midline. IMPRESSION: No acute cardiopulmonary disease. History of Present Illness Trinidad is a 71 year old female who is well known to Dr. Appiah with a history of CAD with CABG, HTN, HLD and paroxysmal A Fib who has been reporting increased precordial pain that usually doesn't last very long and nothing specific brings it on or makes it resolve. She reported chest pain at [facility] on 11/18/16 and was sent to see Dr. Appiah in the clinic on 11/19/16 and had a stress test yesterday which she reports she had chest pain before and during. Following that she went home but the chest pain increased intensity and was not relieved by her home Nitro so she presented to the ED. She was admitted to observation where Nitro paste was applied and she continues to report chest pain. Serial troponin levels are negative, EKG is is with NSSTT changes. Objective Vital Signs Telemetry Rhythm: Sinus Rhythm Height (Feet): 5 Height (Inches): 3.00 Weight (Kilograms): 82.100 General Alert, Orientated x 3, Cooperative ENMT (Brief) mucosa moist Neck (Brief) NOT FOUND: JVD, carotid bruits Respiratory (Brief) clear all harkins, equal bilaterally, NOT FOUND: rales, wheezes Cardiovascular (Brief) regular rate, regular rhythm, NOT FOUND: click, gallop, murmur, pedal edema, rub Abdomen (Brief) BS normo active x4, soft, NOT FOUND: tender Integumentary (Brief) dry, pink, warm Psychiatric (Brief) alert, attentive, normal affect, oriented EKG SR, NSSTT changes Hospital Course Trinidad underwent left heart cath which showed only minor lesions that are as they were seen in 06/2016. Recommend psychiatric consult for patient's anxiety. Hospital psych unable to see today so appointment made with [facility] psych provider Problems: (1) Chest pain Status: Acute (2) CAD (coronary artery disease) Status: Chronic (3) Dyslipidemia Status: Chronic (4) Hypertension Status: Chronic (5) Paroxysmal atrial fibrillation Status: Chronic Code Status Full Code Home Meds Reported Medications Quetiapine Fumarate (Quetiapine Fumarate) 25 Mg Tablet, 25 MG PO HS 11/27/16 Amlodipine Besylate (Amlodipine Besylate) 5 Mg Tablet, 5 MG PO DAILY 11/27/16 Nitroglycerin (Nitroglycerin) 0.4 Mg Tab.subl, 0.4 MG PO Q5MIN Y for CHEST PAIN 07/04/16 Clopidogrel Bisulfate (Clopidogrel) 75 Mg Tablet, 75 MG PO DAILY 07/04/16 Aspirin *EC* (Aspirin EC) 325 Mg Tablet., 325 MG PO DAILY 07/04/16 Ranitidine HCl (Zantac) 150 Mg Tablet, 150 MG PO BID 03/11/16 Citalopram (Celexa) 20 Mg Tablet, 20 MG PO HS 07/17/12 Discontinued Reported Medications Isosorbide Mononitrate (Isosorbide Mononitrate ER) 30 Mg Tab.er.24h, 30 MG PO DAILY 11/27/16 Discharge Disposition Trinidad is discharged to home in the care of herself in good and stable condition. She has a follow up with Dr. Baldwin on December 03, 2016 TYRONE APPIAH MD 12/02/16 1207: Hospital Course Home Meds Reported Medications Quetiapine Fumarate (Quetiapine Fumarate) 25 Mg Tablet, 25 MG PO HS 11/27/16 Amlodipine Besylate (Amlodipine Besylate) 5 Mg Tablet, 5 MG PO DAILY 11/27/16 Nitroglycerin (Nitroglycerin) 0.4 Mg Tab.subl, 0.4 MG PO Q5MIN Y for CHEST PAIN 07/04/16 Clopidogrel Bisulfate (Clopidogrel) 75 Mg Tablet, 75 MG PO DAILY 07/04/16 Aspirin *EC* (Aspirin EC) 325 Mg Tablet.dr, 325 MG PO DAILY 07/04/16 Ranitidine HCl (Zantac) 150 Mg Tablet, 150 MG PO BID 03/11/16 Citalopram (Celexa) 20 Mg Tablet, 20 MG PO HS 07/17/12 Discontinued Reported Medications Isosorbide Mononitrate (Isosorbide Mononitrate ER) 30 Mg Tab.er.24h, 30 MG PO DAILY 11/27/16 Discharge Disposition After examining the patient I agree with the above assessment. I am involved in the formulation of the patient's plan of care. SAMUEL FLORENCE APRN November 29, 2016 13:15 TYRONE APPIAH MD December 02, 2016 12:07
== END 2016-11-28 17:30 | disposition home or self-care (01) ==
LOC: ED 14:27 → EDHOLD 15:25 → UNDOADMOB 15:25 → SRG 15:25 → CATH 15:25 → EDHOLD 16:08 → SRG 16:08 → UNDODISOB 11-28 17:30 → CATH 11-28 17:30
PROVIDERS: ATTEND Internal Medicine Cardiovascular Disease
DX: I25.700 Atherosclerosis of coronary artery bypass graft(s), unspecified, with unstable angina pectoris (principal); Z95.5 Presence of coronary angioplasty implant and graft; R07.2 Precordial pain; I10 Essential (primary) hypertension; I48.0 Paroxysmal atrial fibrillation; E78.2 Mixed hyperlipidemia; F31.9 Bipolar disorder, unspecified; F41.9 Anxiety disorder, unspecified; Z79.82 Long term (current) use of aspirin; Z79.899 Other long term (current) drug therapy; Z82.49 Family history of ischemic heart disease and other diseases of the circulatory system
CPT/HCPCS: 36415; 71010; 80048; 83880; 84484; 85025; 85610; 93005; 93459; 99284; A9270; C1760; C1893; G0378; J1200; J1644; J1885; J2250; J2930; J3010; J7030; Q9967; 93458; 99218

== ENCOUNTER 2017-11-06 01:55 | Observation (INO) ==
[2017-11-06] MEDS ORDERED: SALINE FLUSH 10ml SYRINGE IVF PRN (02:12)
[2017-11-06] MEDS ORDERED: NITROGLYCERIN 0.4 MG SUBLINGUAL TABLET SL PRN (02:12)
[2017-11-06] MEDS ORDERED: METOPROLOL 5mg/5ml INJECTION IVP ONE (02:24)
--- NOTE | 2017-11-06 03:00 | Emergency Department Report ---
Cardiac General HPI - General Chief Complaint: Arrhythmia/Palpitations Stated Complaint: afib, cp Time Seen by Provider: 11/06/17 02:12 Source: patient, EMS, RN notes reviewed, old records reviewed Mode of arrival: EMS Limitations: no limitations - History of Present Illness HPI narrative: 72yo woman is presented to the ER for evaluation of CP. Pt was awoken just prior to calling EMS with CP. Pt has a h/o paroxysmal A-fib; has been successfully cardioverted to NSR x4. Pt sees Dr. Holland for cardiology care. When EMS arrived, pt was in A-fib, as per previous episodes of similar sx. Pts HR was in the 120s-150s; she had crushing chest pain without EKG changes. Pt was given IV cardizem en route with improvement in her SBP (from 200s to 120s) and HR. Occurred At: home Onset (ago): minute(s) Duration: constant Severity: similar to previous episodes Context: awoke with symptoms Activites at Onset: sleep Prior Chest Pain/Cardiac Workup: echocardiography, stress test Modifying Factors: nitroglycerin, other (Cardizem) Nitro Today: 0.4 mg x 1, provided by ED Aspirin Today: 325 mg x 1, provided at home Associated Symtoms: shortness of breath Treatments prior to arrival: calcium channel deann History of Similar Symptoms: Yes - Related Data Home Medications Medication Instructions Recorded Confirmed Citalopram Hydrobromide 20 mg PO HS #0 07/17/12 11/06/17 [Citalopram HBr] raNITIdine HCl [Zantac] 150 mg PO BID #0 03/11/16 11/06/17 Aspirin [Aspirin EC] 325 mg PO DAILY #0 07/04/16 11/06/17 Clopidogrel Bisulfate [Clopidogrel] 75 mg PO DAILY #0 07/04/16 11/06/17 Nitroglycerin 0.4 mg PO Q5MIN PRN #0 07/04/16 11/06/17 Amlodipine Besylate 5 mg PO DAILY #0 11/27/16 11/06/17 Quetiapine Fumarate 25 mg PO HS #0 11/27/16 11/06/17 Atorvastatin Calcium 20 mg PO QDRHS 11/06/17 11/06/17 Celecoxib 200 mg PO QDRHS 11/06/17 11/06/17 Allergies Allergy/AdvReac Type Severity Reaction Status Date / Time Iodine and Iodide Containing Allergy Unknown IVP DYE Verified 11/06/17 02:20 Produc Sulfa (Sulfonamide AdvReac Unknown NAUSEA Verified 11/06/17 02:20 Antibiotics) Review of Systems All systems: reviewed and negative except as stated Cardiovascular: Reports: as per HPI, chest pain, palpitations, dyspnea on exertion. Denies: orthopnea, edema, syncope, paroxysmal nocturnal dyspnea PFSH Patient Stated Medical History Cardiac Arrhythmia Yes Medical History Updates: A-fib. HTN. CAD. HL. Angina. GERD. Insomnia - Social History Smoking status: Never smoker Physical Exam - Limitations Limitations: no limitations - General General appearance: alert, in no apparent distress, obese - Normal Exams: Head:: Normocephalic without trauma Eyes:: Pupils are PERRLA w/ EOMI, No scleral icterus, irritation, or foreign bodies noted ENMT:: No facial trauma, nasal exudates, pharyngeal erythema, or exudates are noted Neck:: Full range of motion, without adenopathy Lymphatic:: No lymphadenopathy Musculoskeletal:: No tenderness, or deformity noted Integumentary:: No rashes, hives, or bruising noted Neurological:: Patient is alert, and oriented Psychiatric:: Patient exhibits, appropriate attention - Chest Chest inspection: Present: normal inspection, symmetric chest wall rise. Absent : tenderness, rash - Respiratory Respiratory exam: Present: normal lung sounds bilaterally. Absent: respiratory distress, wheezes, stridor, prolonged expiratory phase, crackles - Cardiovascular Cardiovascular exam: Present: tachycardia, irregular rhythm, normal heart sounds. Absent: regular rate, normal rhythm, rubs, gallop, clicks Course - Consultations Consultation #1: Dr. Hloland: Will admit for evaluation either rate or rhythm control. Request pt to be NPO and on Tele. Time: 03:23 Vital Signs Pulse Rate 110 H 11/06/17 01:55 Respiratory Rate 20 11/06/17 01:55 Blood Pressure 129/71 11/06/17 01:55 Pulse Oximetry 97 11/06/17 01:55 Pulse Rate 82 11/06/17 03:00 Respiratory Rate 10 11/06/17 03:00 Blood Pressure 111/58 11/06/17 03:00 Pulse Oximetry 92 11/06/17 03:00 Cardiac General - MDM Narrative Medical decision making narrative: Pt with recurrent A-fib. Pt is now rate controlled. Lovenox given for anti- coag. 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 Pt voiced understanding of dx, prognosis, tx, and f/u need. - Differential Diagnosis Differential diagnosis: Likely: palpitations, anxiety, sinus tachycardia, artial fibrillation, artial flutter, ventricular tachycardia - Medical Records Attestation: I reviewed the patient's medical records. - Lab Data Attestation: I reviewed the patient's lab results. Result diagrams: 11/06/17 02:05 11/06/17 02:05 Lab Results 11/06/17 11/06/17 11/06/17 Range/Units 02:05 02:05 02:25 WBC 7.7 (4.5-11.0) T/MM3 RBC 5.15 (4.00-5.20) M/MM3 Hgb 15.7 (12-16) GM/DL Hct 45.8 (36-46) % MCV 88.9 (80-100) UM3 MCH 30.5 (26-34) UUG MCHC 34.3 (31-37) GM/DL RDW Std Deviation 41.2 (36.9-50.2) FL Plt Count 234 (130-400) T/MM3 MPV 9.9 (9.4-12.4) UM3 Immature Gran % (Auto) 0.3 (0.0-0.5) % Neut % (Auto) 44.7 (33-66) % Lymph % (Auto) 39.6 (23-45) % [place] % (Auto) 10.2 H (0-9.0) % Eos % (Auto) 4.8 H (0-4) % Baso % (Auto) 0.4 (0-2) % Neut # (Auto) 3.5 (1.8-7.7) T/MM3 Lymph # (Auto) 3.1 (1-4.8) T/MM3 [place] # (Auto) 0.8 (0-0.8) T/MM3 Eos # (Auto) 0.4 (0-0.5) T/MM3 Baso # (Auto) 0.0 (0-0.2) T/MM3 Abs Immat Gran (auto) 0.02 (0.00-0.03) T/MM3 Turbidity < 20 (0-20) Sodium 146 H (134-144) MEQ/L Potassium 3.5 L (3.6-5) MEQ/L Chloride 109 H (98-107) MEQ/L Carbon Dioxide 22 (22-30) MEQ/L Anion Gap 15 (5-15) meq/L BUN 13.0 (7-17) MG/DL Creatinine 0.8 (0.7-1.2) mg/dL GFR Calculation 70 BUN/Creatinine Ratio 16 (6-26) RATIO Glucose 120 H (65-110) MG/DL Calculated Osmolality 282 H (261-280) MOSM/KG Calcium 10.1 (8.4-10.2) MG/DL Icterus Index < 2 (0-7) Troponin I < 0.012 (0-0.12) ng/ml NT-Pro-B Natriuret Pep 115 (0-175) pg/mL Specimen Hemolysis < 15 (0-25) Ur Collection Type Urine, void-cc/notcc Urine Color Yellow (YELLOW) Urine Clarity Clear Urine pH 5.5 (5.0-8.0) Ur Specific [place] <=1.005 L (1.015-1.025) Urine Protein Negative (NEGATIVE) Urine Glucose (UA) Negative (NEGATIVE) Urine Ketones Negative (NEGATIVE) Urine Occult Blood 1+ A (NEGATIVE) Urine Nitrate Negative (NEGATIVE) Urine Bilirubin Negative (NEGATIVE) Urine Urobilinogen 0.2 (NORMAL) EU/DL Ur Leukocyte Esterase 1+ A (NEGATIVE) Urine RBC 1-3 (0-3) /HPF Urine WBC 1-3 (0-5) /HPF Ur Squamous Epith Cells 0-5 Urine Bacteria None seen (NEGATIVE) Ur Culture Indicated? Cult not indicated - Radiology Data Attestation: I reviewed the patient's radiology results. CXR: Stable chest. No acute CT pathology. - EKG Data EKG #1 EKG attestation: Yes: I reviewed and interpreted this EKG. EKG shows normal: axis, intervals, QRS complexes Rate: normal Rhythm: A.Fib When compared to previous EKG there are: previous EKG unavailable Interpretation: nonspecific ST-T wave changes Disposition Clinical Impression: Atrial fibrillation Qualifiers: Atrial fibrillation type: paroxysmal Qualified Code(s): I48.0 - Paroxysmal atrial fibrillation Disposition: [facility] Print Language: Monegasque Condition: Improved Prescriptions: No Action Citalopram Hydrobromide [Citalopram HBr] 20 mg PO HS #0 Aspirin [Aspirin EC] 325 mg PO DAILY #0 Amlodipine Besylate 5 mg PO DAILY #0 Celecoxib 200 mg PO QDRHS Atorvastatin Calcium 20 mg PO QDRHS raNITIdine HCl [Zantac] 150 mg PO BID #0 Clopidogrel Bisulfate [Clopidogrel] 75 mg PO DAILY #0 Nitroglycerin 0.4 mg PO Q5MIN PRN #0 PRN Reason: CHEST PAIN Quetiapine Fumarate 25 mg PO HS #0 Referrals: Meenu Santana MD [Primary Care Provider] - Time of Disposition: 03:33 - Seen By: physician
[2017-11-06] MEDS ORDERED: MIDAZOLAM 2mg/2ml INJECTION IVP ONE (03:31)
[2017-11-06] MEDS ORDERED: FentaNYL 100 MCG/2 ML INJECTION IVP ONE (03:31)
[2017-11-06] MEDS ORDERED: SALINE FLUSH 10ml SYRINGE IV ONE (03:31)
[2017-11-06] MEDS ORDERED: DiphenhydrAMINE 50 MG/ML INJECTION IVP ONE (03:58)
[2017-11-06] MEDS: ENOXAPARIN 100 MG/ML INJECTION SQ SCH ×2 (04:04→10:58)
[2017-11-06 04:19] VITALS: BMI 33.3
--- NOTE | 2017-11-06 08:02 | XRay Report ---
Indication: CP PROCEDURE: XR chest 1V: Encounter: Initial Comparison: November 27, 2016 Findings: The lungs are stable in appearance without new focal airspace consolidation. There is no pleural effusion or pneumothorax. The heart size, pulmonary vascularity and mediastinal contours are unchanged. Prior CABG. IMPRESSION: Stable appearance of the chest without acute cardiopulmonary disease. .
--- NOTE | 2017-11-06 11:56 | Cardiology History & Physical ---
History of Present Illness Chief complaint: Chest Pain and Atrial fibrillation HPI: Pt is a 72 year old female well known to Dr. Holland with PMH of CAD, PAF, HTN, and DLD. Pt states she was awoke at 0100 this am with CP and palpitations. Upon arrival to the ED, pt was found to be in A-fib with HR in the 120s-150s, troponin negative. Pt states she had very brief, crushing chest pain that resolved with 1 dose of SL nitro. No EKG changes suggestive of ischemia noted. Pt was given IV cardizem en route to the ED with improvement in both BP and pulse. Pt states nothing made her palpitations better or worse and she denies any nausea, diaphoresis or dizziness with her chest pain. Pt states chest pain has not returned. Review of Systems - Constitutional Constitutional: Absent: chills, fever(s) - EENMT Eyes: Absent: loss of vision Ears: Absent: ear discharge, ear pain Balance: Absent: vertigo Mouth/Throat: Absent: sore throat - Cardiovascular Cardiovascular: Present: chest pain (intermittent, sharp and grabbing), palpitations. Absent: dyspnea on exertion, orthopnea, edema, heart murmur Rhythm: Present: abnormal rhythm Vascular: Absent: intermittent claudication, pedal edema - Respiratory Respiratory: Absent: cough, dyspnea, dyspnea on exertion, chest congestion - Gastrointestinal Gastrointestinal: Absent: constipation, diarrhea, nausea, vomiting - Genitourinary Genitourinary: Present: hematuria. Absent: dysuria, urinary frequency, urinary urgency - Musculoskeletal Musculoskeletal: Absent: myalgias - Integumentary/Breasts Integumentary: Absent: lesions, rash - Neurological Neurological: Absent: dizziness, vertigo - Psychiatric Psychiatric: Present: anxiety, depression PFSH Patient Stated Medical History Cataracts Yes: both eyes Angina Yes Cardiac Arrhythmia Yes Coronary Artery Disease Yes Hypertension Yes Gastroesophageal Reflux Yes Disease Depression Yes Medical History Updates: A-fib. HTN. CAD. HL. Angina. GERD. Insomnia Surgical History: Cholecystectomy, hysterectomy, CABG x 3 2012, Heart cath with stents x 2 in 2014 Family History: Family history of CAD < 60 years - Social History Smoking status: Never smoker Substance use type: does not use Alcohol intake frequency: does not drink Does patient use chewing tobacco?: No Medications Home Medications Medication Instructions Recorded Confirmed Type Citalopram Hydrobromide 20 mg PO HS #0 07/17/12 11/06/17 History [Citalopram HBr] raNITIdine HCl [Zantac] 150 mg PO BID #0 03/11/16 11/06/17 History Aspirin [Aspirin EC] 325 mg PO DAILY #0 07/04/16 11/06/17 History Clopidogrel Bisulfate [Clopidogrel] 75 mg PO DAILY #0 07/04/16 11/06/17 History Nitroglycerin 0.4 mg PO Q5MIN PRN #0 07/04/16 11/06/17 History Amlodipine Besylate 5 mg PO DAILY #0 11/27/16 11/06/17 History Quetiapine Fumarate 25 mg PO HS #0 11/27/16 11/06/17 History Atorvastatin Calcium 20 mg PO QDRHS 11/06/17 11/06/17 History Celecoxib 200 mg PO QDRHS 11/06/17 11/06/17 History Allergies Allergy/AdvReac Type Severity Reaction Status Date / Time Iodine and Iodide Containing Allergy Unknown IVP DYE Verified 11/06/17 02:20 Produc diphenhydramine AdvReac Severe Airway Verified 11/06/17 12:05 [From Benadryl] Obstruction Sulfa (Sulfonamide AdvReac Unknown NAUSEA Verified 11/06/17 02:20 Antibiotics) Exam Vital signs: Temperature 97.3 F 11/06/17 07:45 Pulse Rate 107 H 11/06/17 08:00 Respiratory Rate 18 11/06/17 07:45 Blood Pressure 106/65 11/06/17 07:45 Pulse Oximetry 94 11/06/17 07:45 - Constitutional no acute distress, well nourished - Routine HEENT Exam Head: Present: normocephalic, atraumatic Eye: Present: EOMI, PERRL ENT: Present: mucous membranes moist - Routine Neck Exam Present: supple, trachea midline. Absent: JVD, carotid bruit - Routine Chest/Breast/Axilla Exam Chest wall: Present: tenderness - Routine Respiratory Exam Present: rales (bibasilar). Absent: dyspnea - Routine Cardiovascular Exam Present: S1, S2, irregularly irregular - Routine Abdominal Exam Present: soft, normoactive bowel sounds, non tender - Routine Extremities Exam Present: no edema - Routine Skin Exam Present: intact, dry, warm - Routine Neurological Exam Present: alert, oriented X3 - Routine Psychiatric Exam Present: normal thought process, cooperative, anxious Results 11/06/17 02:05 11/06/17 02:05 Cardiac Enzymes 11/06/17 Range/Units 09:27 Troponin I < 0.012 (0-0.12) ng/ml Intake and Output 11/05/17 11/06/17 11/06/17 22:59 06:59 14:59 Output Total 350 / 350 Balance -350 / 150 Output: Urine 350 / 350 Other: Urine Appearance Clear Clear Urine Color Yellow Yellow Urine Odor Normal # Voids 1 1 Weight 85.5 kg 85.2 kg Patient Weight 11/07/17 06:59 Weight 85.2 kg - Imaging and Cardiology EKG results: image reviewed - EKG Interpretation EKG shows: atrial fibrillation EKG interpretations - EKG EKG shows: atrial fibrillation (HR 107) Hospital Course This is a general summary of the patient's hospital course. For more details refer to the complete medical record. Time spent with patient: 25 - 35 minutes Resuscitation Status: Full Code Assessment and Plan - Attestation Attestation Narrative: 11/07/17 13:52 Recommendation After examining the patient I agree with the above assessment. I am involved in the formulation of the patient's plan of care. - Assessment and Plan (1) Chest pain Current visit: No Status: Acute (2) Paroxysmal atrial fibrillation Current visit: Yes Status: Chronic (3) Coronary arteriosclerosis after coronary artery bypass grafting Current visit: Yes Status: Chronic (4) Hypertension Current visit: Yes Status: Chronic (5) Hyperlipidemia Current visit: Yes Status: Chronic - Assessment and Plan Chest Pain - EKG: A-fib - Troponin negative - Monitor on tele - SL Nitro prn PAF - Symptomatic, HR 71-114 - Will start IV amiodarone in hopes of conversion - Start xarelto 20 mg daily - D/C Lovenox - EKG in the am to monitor QTc CAD - Stop asa and plavix - Start xarelto 20 mg daily - S/P CABG in 2012, stenting in 2014 and 2016 - Heart Cath 2017: LAD stent patent, Px LAD 30%, mid LAD 30%, Cx stent patent, CHAVEZ to LAD occluded. VG to OM occluded.- medical mgmt - ECHO 2016: EF 63%, diastolic dysfunction HTN - Chronic, well controlled on medical therapy - Continue Norvasc 5 mg daily HLD - Chronic - LDL 168 during 05/2017 OV - Currently on Lipitor 20 mg, it is strongly recommended to increase to 40 mg at last OV to drive LDL below 80
[2017-11-06] MEDS ORDERED: AMIODARONE 150 MG in NS 100 ML IV ONE (17:02)
[2017-11-06] MEDS ORDERED: AMIODARONE 450 MG in NS 250ml 250 ML IV SCH (17:03)
[2017-11-06] MEDS: RIVAROXABAN 20 MG TABLET PO SCH (19:01)
[2017-11-06] MEDS ORDERED: POM CITALOPRAM 20 MG TABLET PO SCH (21:00)
[2017-11-06] MEDS ORDERED: --POM--ATORVASTATIN 20 MG TABLET PO SCH (21:00)
[2017-11-06] MEDS ORDERED: QUETIAPINE 25 MG PO SCH (21:00)
[2017-11-06] MEDS: POM RANITIDINE 150 MG TABLET PO SCH (22:11)
[2017-11-06] MEDS ORDERED: AMIODARONE 900 MG in NS 500ml 500 ML IV SCH (23:04)
[2017-11-07] MEDS ORDERED: POM CLOPIDOGREL 75 MG TABLET PO SCH (09:00)
[2017-11-07] MEDS ORDERED: POM AMLODIPINE 5 MG TABLET PO SCH (09:00)
[2017-11-07] MEDS ORDERED: ASPIRIN *EC* 325 MG TABLET PO SCH (09:00)
[2017-11-07] MEDS: POM RANITIDINE 150 MG TABLET PO SCH (10:24)
--- NOTE | 2017-11-07 15:17 | Discharge Summary ---
<Naheed Ojeda - Last Filed: 11/10/17 13:59> Discharge Information Date of admission: 11/06/17 03:30 Anticipated date of discharge: 11/07/17 Attending Physician: Tyrone Holland MD Primary care physician: Meenu Santana MD - Discharge Diagnosis (1) Coronary arteriosclerosis after coronary artery bypass grafting Status: Chronic (2) Paroxysmal atrial fibrillation Status: Chronic (3) Hypertension Status: Chronic (4) Hyperlipidemia Status: Chronic (5) Chest pain Status: Acute Atrial fibrillation - Procedures Procedures: Direct current cardioversion History of Present Illness HPI: Pt is a 72 year old female well known to Dr. Holland with PMH of CAD, PAF, HTN, and DLD. Pt states she was awoke at 0100 this am with CP and palpitations. Upon arrival to the ED, pt was found to be in A-fib with HR in the 120s-150s, troponin negative. Pt states she had very brief, crushing chest pain that resolved with 1 dose of SL nitro. No EKG changes suggestive of ischemia noted. Pt was given IV cardizem en route to the ED with improvement in both BP and pulse. Pt states nothing made her palpitations better or worse and she denies any nausea, diaphoresis or dizziness with her chest pain. Pt states chest pain has not returned. Hospital Course This is a general summary of the patient's hospital course. For more details refer to the complete medical record. Hospital course: Chest Pain - EKG: A-fib - Troponin negative - Monitor on tele - SL Nitro prn PAF - Symptomatic, HR 71-114 - Will start IV amiodarone in hopes of conversion - Start xarelto 20 mg daily - D/C Lovenox - EKG in the am to monitor QTc CAD - Stop asa and plavix - Start xarelto 20 mg daily - S/P CABG in 2012, stenting in 2014 and 2016 - Heart Cath 2017: LAD stent patent, Px LAD 30%, mid LAD 30%, Cx stent patent, CHAVEZ to LAD occluded. VG to OM occluded.- medical mgmt - ECHO 2015: EF 63%, diastolic dysfunction HTN - Chronic, well controlled on medical therapy - Continue Norvasc 5 mg daily HLD - Chronic - LDL 168 during 05/2017 OV - Currently on Lipitor 20 mg, it is strongly recommended to increase to 40 mg at last OV to drive LDL below 80 Time spent with patient: 25 - 35 minutes Resuscitation Status: Full Code Exam Vital signs: Temperature 97.3 F 11/07/17 07:00 Pulse Rate 104 H 11/07/17 14:58 Respiratory Rate 18 11/07/17 14:58 Blood Pressure 164/108 H 11/07/17 14:58 Pulse Oximetry 96 11/07/17 14:51 - Constitutional no acute distress, well nourished, cooperative - Routine HEENT Exam Head: Present: normocephalic ENT: Present: mucous membranes dry - Routine Neck Exam Absent: JVD, carotid bruit - Routine Chest/Breast/Axilla Exam Chest wall: Absent: tenderness - Routine Respiratory Exam Present: rales (bibasilar). Absent: dyspnea, CTA bilaterally - Routine Cardiovascular Exam Present: RRR, no murmur - Routine Abdominal Exam Present: soft, non tender - Routine Extremities Exam Present: no edema - Routine Skin Exam Present: intact, dry, warm - Routine Neurological Exam Present: alert, oriented X3 - Routine Psychiatric Exam Present: normal affect, normal thought process Results 11/06/17 02:05 11/06/17 02:05 Intake and Output 11/07/17 11/07/17 11/07/17 06:59 14:59 22:59 Other: Urine Appearance Clear Urine Color Yellow Size of Bowel Movement Small # Voids 1 # Bowel Movements 1 Weight 209 lb 10.554 oz Patient Weight 11/08/17 06:59 Weight 209 lb 10.554 oz - Imaging and Cardiology Imaging & Cardiology Narrative: Date of Exam: 11/06/17 Ordering Provider: Mack Middleton DO Type of Exam(s): XR chest 1V Reason for Exam(s): CP Indication: CP PROCEDURE: XR chest 1V: Encounter: Initial Comparison: November 27, 2016 Findings: The lungs are stable in appearance without new focal airspace consolidation. There is no pleural effusion or pneumothorax. The heart size, pulmonary vascularity and mediastinal contours are unchanged. Prior CABG. IMPRESSION: Stable appearance of the chest without acute cardiopulmonary disease. 11/07/17 15:14 Discharge Plan - Med Rec/Dispo Referrals/Follow Up: Tyrone Holland MD [Physician] - 12/02/17 María Instructions: A-fib (Atrial Fibrillation) (GEN) Prescriptions: New Amiodarone [Pacerone] 200 mg PO DAILY #30 tab Rivaroxaban [Xarelto] 20 mg PO WS #30 tab Continue Citalopram Hydrobromide [Citalopram HBr] 20 mg PO HS #0 Amlodipine Besylate 5 mg PO DAILY #0 Celecoxib 200 mg PO QDRHS Atorvastatin Calcium 20 mg PO QDRHS raNITIdine HCl [Zantac] 150 mg PO BID #0 Nitroglycerin 0.4 mg PO Q5MIN PRN #0 PRN Reason: CHEST PAIN Quetiapine Fumarate 25 mg PO HS #0 Discontinued Aspirin [Aspirin EC] 325 mg PO DAILY #0 Clopidogrel Bisulfate [Clopidogrel] 75 mg PO DAILY #0 - Disposition 01 Discharged Home, Self-Care - Dismissal Complete Discharge Instructions are:: Complete <Tyrone Holland - Last Filed: 11/11/17 16:11> Discharge Information Date of admission: 11/06/17 03:30 Attending Physician: Tyrone Holland MD Primary care physician: Meenu Santana MD - Discharge Diagnosis (1) Coronary arteriosclerosis after coronary artery bypass grafting Status: Chronic (2) Paroxysmal atrial fibrillation Status: Chronic (3) Hypertension Status: Chronic (4) Hyperlipidemia Status: Chronic (5) Chest pain Status: Acute Hospital Course This is a general summary of the patient's hospital course. For more details refer to the complete medical record. Exam Vital signs: Temperature 97.2 F 11/07/17 16:00 Pulse Rate 66 11/07/17 16:15 Respiratory Rate 12 11/07/17 16:00 Blood Pressure 123/85 11/07/17 16:15 Pulse Oximetry 100 11/07/17 16:15 Results 11/06/17 02:05 11/06/17 02:05 Attestation Narriative - Attestation Attestation Narrative: 11/11/17 16:11 Recommendation After examining the patient I agree with the above assessment. I am involved in the formulation of the patient's plan of care.
[2017-11-07 15:44] VITALS: RESP 12
[2017-11-07 16:02] VITALS: TEMP 97.2; O2SAT 100
[2017-11-07 16:30] VITALS: BP 123/85; PULSE 66
[2017-11-07] MEDS ORDERED: AMIODARONE 200 MG TABLET PO SCH (17:00)
[2017-11-07] MEDS: RIVAROXABAN 20 MG TABLET PO SCH (17:58)
--- NOTE | 2017-11-07 18:06 | DC Cardioversion ---
DATE 11/07/2017 The patient is a 72-year-old lady who presented to hospital and was admitted with atrial fibrillation of onset of less than 48 hours and was referred for DC cardioversion. Informed consent was obtained after explaining the procedure and the potential risks to the patient and daughter who agreed to proceed with the procedure. PROCEDURE DC cardioversion. Conscious sedation was performed using Versed and fentanyl. Anterior-posterior Zoll pads were applied. 360 joules of energy were delivered in a synchronized manner and patient converted from atrial fibrillation to sinus rhythm. She tolerated the procedure well with no complications. IMPRESSION Successful DC cardioversion of atrial fibrillation to sinus rhythm. PLAN The patient was started on anticoagulation and antiarrhythmics and will maintain anticoagulation and antiarrhythmics in the future. JULIETA
== END 2017-11-07 19:00 | disposition home or self-care (01) ==
LOC: MED 01:55 → ED 01:55 → MED 04:15
PROVIDERS: ADMIT Internal Medicine Cardiovascular Disease; ATTEND Internal Medicine Cardiovascular Disease